=== PATIENT | male | born 1970 | race Caucasian/White ===

== ENCOUNTER 2016-10-12 13:21 | Outpatient (RCR) | payer MEDICARE ==
[~2016-10-12 13:21] MED LIST: ASCO-262 PO; ASPI-983 PO; ATOR20TA66 PO; CEFU500T PO; FURO80TA3 PO; INSU100V16 SQ; INSU100V5 SQ; LOSA50TA36 PO; METO-274 PO; PARO30TA3 PO; SPIR25TA3 PO
== END 2016-10-29 16:00 | disposition home or self-care (01) ==
LOC: WOUNDCARE 13:21
PROVIDERS: ATTEND Surgery
DX: L98.492 Non-pressure chronic ulcer of skin of other sites with fat layer exposed (principal); E11.622 Type 2 diabetes mellitus with other skin ulcer; T81.31XA Disruption of external operation (surgical) wound, not elsewhere classified, initial encounter
CPT/HCPCS: 11042; 17250; 99213

== ENCOUNTER → 2018-02-21 | Outpatient (CLI) | payer BC, MEDICARE ==
[~2018-02-21] MED LIST changes: +ACHD5005 PO; +AZIT250T12 PO; +CARV25TA PO; +CEFP200T2 PO; +CETI10TA17 PO; +INSU100I14 SQ; +LACT1CAP8 PO; +LOSA100T28 PO; -METO-274 PO; +METO-395 PO; +METR500T PO; +SACU1TAB7 PO
--- NOTE | 2018-02-21 12:42 | Diagnostic Imaging Report ---
PROCEDURE: CT pelvis without contrast. TECHNIQUE: Multiple contiguous axial images were obtained through the pelvis without the use of intravenous contrast. Sagittal and coronal reformations were performed. INDICATION: Buttock abscess. COMPARISON: No prior studies are available for comparison. FINDINGS: There is a gas and fluid collection identified in the posterior soft tissues at the midline at the level of the lower sacrum and coccyx. The greatest fluid component is in the left paramidline location measuring 4.0 cm transverse x 4.5 cm AP x 6.4 cm cephalocaudal. There are inflammatory changes in the midline and right paramidline as well with occasional small gas bubbles in the subcutaneous fat on the right as well. No fluid in the right paramidline is seen. No underlying bony destructive changes of the sacrum or coccyx are identified. Bladder and prostate are unremarkable. There appears to be penile prosthesis with balloon in the right pelvis. No free fluid in the pelvis is seen. There are some mildly prominent inguinal lymph nodes bilaterally, largest on the left with short axis measurement of 15 mm. Visualized bowel loops are unremarkable. IMPRESSION: Inflammatory changes in the posterior subcutaneous fat at the level of the lower sacrum and coccyx with gas and fluid collection present, consistent with a small abscess. Deep tissues are unremarkable, however, this process does abut the gluteus musculature. No underlying bony destructive changes within the sacrum or coccyx are identified. Dictated by: Dictated on workstation # [id number]
== END ==
LOC: RAD 11:56
PROVIDERS: ATTEND Surgery
DX: L02.31 Cutaneous abscess of buttock (principal)
CPT/HCPCS: 72192

== ENCOUNTER 2018-02-24 05:29 | Outpatient (CLI) | payer BC, MEDICARE ==
[~2018-02-24] VITALS: Ht 190.5 cm; Wt 126.3 kg
[~2018-02-24 05:29] MED LIST changes: -ACHD5005 PO; -LACT1CAP8 PO; -METR500T PO; -SACU1TAB7 PO
[2018-02-24] MEDS ORDERED: SACU1TAB7 PO (10:45)
[2018-02-25] MEDS ORDERED: ACHD5005 PO (11:24)
== END 2018-02-24 10:56 ==
LOC: PREOP 05:29
PROVIDERS: ATTEND Surgery
DX: Z01.818 Encounter for other preprocedural examination (principal)

== ENCOUNTER 2018-02-25 08:20 | Day surgery (SDC) | payer BC, MEDICARE ==
[~2018-02-25] VITALS: Ht 190.5 cm; Wt 126.3 kg
[~2018-02-25 08:20] MED LIST changes: +SACU1TAB7 PO
[2018-02-25] MEDS ORDERED: LACTATED RINGERS 1,000 ML IV PRN (09:07)
[2018-02-25] MEDS ORDERED: ceFAZolin 2 GM IV Premixed 50 ML IV ONE (09:15)
[2018-02-25] MEDS ORDERED: ceFAZolin 2 GM/50 ML PRE-MIX IVPB IV ONE (09:15)
[2018-02-25 09:33] VITALS: BP 122/70
[2018-02-25 09:41] LABS: BUN/CREATININE RATIO 13; CALCIUM 8.9 MG/DL (8.5-10.1); CARBON DIOXIDE 23 MMOL/L (21-32); CHLORIDE 103 MMOL/L (98-107); CREATININE SERUM 1.19 MG/DL (0.60-1.30); GFR ESTIMATED > 60; GLUCOSE 226 MG/DL (70-105); POTASSIUM 4.1 MMOL/L (3.6-5.0); SODIUM 137 MMOL/L (135-145)
[2018-02-25] MEDS ORDERED: proPOfol 200 MG/20 ML (DIPRIVAN) VIAL IV ONE (10:06)
[2018-02-25] MEDS ORDERED: LIDOCAINE PF 2% 5 ML (XYLOCAINE) VIAL ONE (10:06)
[2018-02-25] MEDS ORDERED: SEVOFLURANE (ULTANE) 15 ML INHAL SOLN ONE (10:06)
[2018-02-25] MEDS ORDERED: MIDAZOLAM 2 MG/2 ML (VERSED) VIAL ONE (10:06)
[2018-02-25] MEDS ORDERED: fentaNYL INJECTION 100 MCG/2 ML AMP ONE ×2 (10:06→11:08)
[2018-02-25] MEDS ORDERED: LIDOCAINE 1% INJ 20 ML 20 ML VIAL ONE (10:12)
[2018-02-25] MEDS ORDERED: BUPIVACAINE 0.5% 30 ML (SENSORCAINE) VIAL ONE (10:12)
--- NOTE | 2018-02-25 10:15 | Progress Note-Pre Operative ---
Pre-Operative Progress Note H&P Reviewed The H&P was reviewed, patient examined and no changes noted. Date Seen by Provider: February 25, 2018 Time Seen by Provider: 10:14 Date H&P Reviewed: February 25, 2018 Time H&P Reviewed: 10:15 Pre-Operative Diagnosis: infected pilonidal cyst CHARLOTTE FITZPATRICK DO February 25, 2018 10:15
[2018-02-25] MEDS ORDERED: ROCURONIUM 10 MG/ML 5 ML SYRINGE IV ONE (11:08)
[2018-02-25] MEDS ORDERED: GLYCOPYRROLATE 0.2 MG/ML (ROBINUL) 2 ML VIAL ONE (11:19)
[2018-02-25] MEDS ORDERED: NEOSTIGMINE 1 MG/ML 5 ML SYRINGE ONE (11:19)
--- NOTE | 2018-02-25 11:23 | Progress Note-Post Operative ---
Post-Operative Progess Note Surgeon (s)/Concrete Gun Operator (s) Surgeon CHARLOTTE FITZPATRICK DO Concrete Gun Operator: na Pre-Operative Diagnosis infected pilonidal cyst Post-Operative Diagnosis same Procedure & Operative Findings Date of Procedure 02/25/18 Procedure Performed/Findings incision and drainage and debridement of infected pilonidal cyst 5x2x4 cm Anesthesia Type gen Estimated Blood Loss Estimated blood loss (mL): min Specimens/Packing Specimens Removed culture CHARLOTTE FITZPATRICK DO February 25, 2018 11:23
[2018-02-25] MEDS ORDERED: ACHD5005 PO (11:24)
--- NOTE | 2018-02-25 11:25 | Discharge Inst-Simple/Standard ---
Discharge Inst-Standard Discharge Medications New, Converted or Re-Newed RX: RX on Chart Patient Instructions/Follow Up Plan of Care/Instructions/FU: - Wednesday Irrigate with saline and then pack with iodoform gauze. Activity as Tolerated: Yes Discharge Diet: Regular Diet Other Inst to Patient Follow up Appt: Make appointment for Wednesday Instructions: No strenuous activity. May shower in 24 hours, no tub bath or soaking. Use incentive spirometer at home as directed. No Smoking Skin/Wound Care: Irrigate and pack daily as directed. Symptoms to Report: Appetite Changes, Extremity Discoloration, Numbness/Tingling, Swelling Increased , Bleeding Excessive, Eyesight Changes, Pain Increased, Urine Color Change, Constipation(Persistent), Fever over 101 degree F, Pain/Pressure in chest, Urinating Difficulty, Cough Up/Vomit Blood, Heart Beat Irreg/Pounding, Pain/ Pressure in jaw, Vaginal Bleeding Increase, Cramps in feet or legs, Lightheadedness, Pain/Pressure in shoulder, Diarrhea(Persistent), Memory Changes Suddenly, Questions/Concerns, Weight gain consecutive days, Dizziness/ Fainting, Nausea/Vomiting, Shortness of Breath, Weight gain over 2 pounds If questions or concerns contact your physician Or seek help at emergency department. CHARLOTTE FITZPATRICK DO February 25, 2018 11:25
[2018-02-25] MEDS ORDERED: morphine INJ 10 MG/ML 1ML (SYR OR VIAL) IVP PRN (11:45)
[2018-02-25] MEDS ORDERED: HYDROmorphone 2 MG/ML VIAL (DILAUDID) IVP PRN (11:45)
[2018-02-25] MEDS ORDERED: ONDANSETRON 4 MG/2 ML (SDV) Z0FRAN IVP PRN (11:45)
[2018-02-25 12:25] VITALS: BP 116/46
[2018-02-25 12:26] VITALS: BP 116/46
[2018-02-25] MEDS ORDERED: HYDROcodone/APAP 5 MG/325 MG (LORTAB) TAB ONE (12:36)
[2018-02-25] MEDS ORDERED: HYDROcodone/APAP 5 MG/325 MG (LORTAB) TAB PO ONE (12:45)
[2018-02-25 12:55] VITALS: BP 114/80
[2018-02-25 13:25] VITALS: BP 116/64
[2018-02-25 13:45] VITALS: BP 116/64
--- NOTE | 2018-02-25 14:02 | Anesthesia-General Post-Op ---
General Patient Condition Mental Status/LOC: Same as Preop Cardiovascular: Satisfactory Nausea/Vomiting: Absent Respiratory: Satisfactory Pain: Controlled Complications: Absent Post Op Complications Complications None Follow Up Care/Instructions Patient Instructions None needed. Anesthesia/Patient Condition Patient Condition Patient is doing well, no complaints, stable vital signs, no apparent adverse anesthesia problems. No complications reported per nursing. JOHANNY BLANKENSHIP CRNA February 25, 2018 14:02
--- NOTE | 2018-02-26 12:57 | OPERATIVE REPORT ---
DATE OF SERVICE: 02/25/2018 PREOPERATIVE DIAGNOSIS: Infected pilonidal cyst. POSTOPERATIVE DIAGNOSIS: Infected pilonidal cyst. PROCEDURE: Incision and drainage and debridement of infected pilonidal cyst 5 x 2 x 4 cm. SURGEON: Charlotte Brunson DO. ANESTHESIA: General. ESTIMATED BLOOD LOSS: Minimal. COMPLICATIONS: None. INDICATIONS: The patient is a 47-year-old male with diabetes, but he has had an infected pilonidal cyst which has been drained multiple times. He has had recent workup. He continued to have drainage from the infected pilonidal cyst through a small opening and demonstrating a deep abscess still present. The patient was discussed risks and benefits of procedure and wished to proceed with procedure. Consent was signed in chart. PROCEDURE: The patient was taken to the operative suite. He was prepped and draped in prone position after being intubated in position. Timeout was performed. Just to the left of the midline buttocks, there was a small raised draining area. Elliptical incision was made around this and the skin and subcutaneous tissue was removed with dissection going deeper through the subcutaneous tissues. A large pocket was then encountered and purulent drainage was present. Culture was obtained. There is a large cavity present within this which went down towards the tip of the coccyx and superiorly a few centimeters. The infected tissue was then debrided from the cavity to a clean healthy tissue. The wound was then irrigated with copious amounts of irrigation. Hemostasis was achieved. The wound was then packed with one Xeroform gauze. The area was then washed and dried, sterile bandage was applied. The patient tolerated the procedure well without any complications and taken to recovery room in stable condition. Job ID: [id number] DocumentID: [id number] Dictated Date: 02/25/2018 20:18:11 Senior Clinician Date: 02/26/2018 03:19:03 Dictated By: CHARLOTTE BRUNSON DO
== END 2018-02-25 13:50 | disposition home or self-care (01) ==
LOC: SDC 08:20
PROVIDERS: ATTEND Surgery
DX: L05.91 Pilonidal cyst without abscess (principal); I25.10 Atherosclerotic heart disease of native coronary artery without angina pectoris; I11.0 Hypertensive heart disease with heart failure; I50.9 Heart failure, unspecified; G47.33 Obstructive sleep apnea (adult) (pediatric); E11.42 Type 2 diabetes mellitus with diabetic polyneuropathy; Z79.4 Long term (current) use of insulin; Z79.899 Other long term (current) drug therapy; Z95.810 Presence of automatic (implantable) cardiac defibrillator
CPT/HCPCS: 36415; 80048; 82962; 87070; 87075; 87081; 87205

== ENCOUNTER 2018-03-26 12:27 | Emergency (ER) | payer BC, MEDICARE ==
[~2018-03-26] VITALS: Ht 190.5 cm; Wt 117.9 kg
[~2018-03-26 12:27] MED LIST changes: +ACHD5005 PO
--- OUTSIDE RECORDS SUMMARY | 2018-03-26 12:33 | XMS REPORT ---
Author Author GRISEL RIVERA Organization [facility] Address [address] [place] [address] Care Team Providers Care Spinner Open End Name Role Phone GRISEL RIVERA Unavailable PROBLEMS Type Condition ICD9-CM Code FUL65-LT Code Onset Dates Condition Status SNOMED Code Problem FOREIGN (obstructive sleep apnea) G47.33 Active 55745286 Problem Insulin long-term use Z79.4 Active 956516398 Problem Diabetes type 1, controlled E10.9 Active 84903729 Problem Non-ischemic cardiomyopathy I42.9 Active 18111936 Problem Acute seasonal allergic rhinitis due to other allergen J30.2 Active 198440713 Problem BMI 34.0-34.9,adult Z68.34 Active 923534560 Problem Hypertension I10 Active 41618653 Problem Diabetes E11.9 Active 70203494 Problem Generalized anxiety disorder F41.1 Active 56247350 Problem Skin ulcer, limited to breakdown of skin L98.491 Active 50311721 ALLERGIES No Information ENCOUNTERS Encounter Location Date Diagnosis [place] [id number] [place] [address] 24774- 9911 Jan, Medicare annual wellness visit, initial Z00.00 [place] [id number] [place] [address] 41372- 0170 Dec, [facility] [id number] [place] [address] 30923- 4383 Dec, [place] [id number] [place] [address] 22815- 0357 Dec, [place] [id number] [place] [address] 15494- 1579 Dec, Pilonidal cyst with abscess L05.01 [place] [address] 16307- 6391 Dec, [facility] [address] [address] Nov, [facility] [id number] [place] [address] 67562- 0803 Nov, [facility] [id number] [place] [address] 46537- 4928 Nov, [facility] [id number] [place] [address] 17710 -9150 Nov, [facility] [id number] [place] [address] 79249- 3381 Oct, Pilonidal cyst with abscess L05.01 [facility] [id number] [place] [address] 42199- 3881 Oct, BMI 37.0-37.9, adult Z68.37 [facility] [id number] [place] [address] 93634- 4658 Oct, [facility] [id number] [place] [address] 25380- 4210 Oct, [facility] [id number] [place] [address] 60225- 4024 Sep, Sebaceous cyst L72.3 [facility] [id number] [place] [address] 88373- 8821 Sep, [facility] [id number] [place] [address] 09674- 3629 Sep, [facility] [id number] [place] [address] 54614- 9779 Sep, Local infection of the skin and subcutaneous tissue, unspecified L08.9 [facility] [id number] [place] [address] 33458- 6920 Sep, [facility] [id number] [place] [address] 14412- 7473 Sep, [facility] [id number] [place] [address] 40926- 7269 Aug, [facility] [id number] [place] [address] 91842 -2051 Aug, Cough R05 and Community acquired pneumonia of left lower lobe of lung J18.1 [facility] [id number] [place] [address] 26581- 7502 Aug, [facility] [id number] [place] [address] 21374- 4447 Jul, Diabetes type 1, controlled E10.9 ; Encounter for immunization Z23 and FOREIGN (obstructive sleep apnea) G47.33 [facility] [id number] [place] [address] 49760- 4232 Jul, [address] [id number] [place] [address] Jul [facility] [id number] [place] [address] 64288- 8284 Jul, Diabetes type 1, controlled E10.9 [facility] [id number] [place] [address] 24158- 2392 Jul, [facility] [id number] [place] [address] 37010- 7959 Jul, [facility] [id number] [place] [address] 60946 -9073 Jul, Acute seasonal allergic rhinitis due to other allergen J30.2 [facility] [id number] [place] [address] 98269- 0933 Jun, [place] [id number] [place] [address] 37511- 6225 Jun, [facility] [id number] [place] [address] 63987- 1197 14 Jun, 2017 [facility] [address] [place] [address]- 1170 May, [facility] [id number] [place] [address] 47953- 7069 Apr, [facility] [id number] [place] [address] 16285- 7254 Apr, [facility] [id number] [place] [address] 16277- 4718 Mar, Renal insufficiency N28.9 [facility] [address] 79513- 5965 Mar, [facility] [address] 61181- 6868 Mar, Other specified hypotension I95.89 [facility] [id number] [place] [address] 61595- 9797 Mar, [facility] [id number] [place] [address] 03570- 1245 February, [facility] [id number] [place] [address] 21585- 3809 February, Allergy, initial encounter T78.40XA [facility] [id number] [place] [address] 41882- 1915 February, Diabetes type 1, controlled E10.9 [facility] [id number] [place] [address] 95608- 6647 February, [facility] [id number] [place] [address] 93333- 0706 February, [facility] [id number] [place] [address] 16185- 4684 Dec, [facility] [id number] [place] [address] 20596- 9079 Dec, BMI 34.0-34.9,adult Z68.34 [facility] [address] 76376- 9276 Nov, Generalized anxiety disorder F41.1 [facility] [id number] [place] [address] 38338- 8503 07 Nov, 2016 [facility] [id number] [place] [address] 154717- 1763 Nov, [facility] [id number] [place] [address] 48638- 8518 Nov, Skin ulcer, limited to breakdown of skin L98.491 [facility] [id number] [place] [address] 89470- 2699 Oct, [facility] [id number] [place] [address] 62612- 4233 Oct, Insulin long-term use Z79.4 [facility] [id number] [place] [address] 54498- 4140 Oct, [facility] [id number] [place] [address] 23515- 7876 Oct, Insulin long-term use Z79.4 [facility] [id number] [place] [address] 16958- 6114 Oct, [facility] [id number] [place] [address] 86800- 6677 Oct, Encounter for immunization Z23 [facility] [id number] [place] [address] 56614- 9517 Oct, [facility] [id number] [place] [address] 28168- 6048 Sep, [facility] [id number] [place] [address] 49078- 4002 Sep, Acute nasopharyngitis J00 ; Routine adult health maintenance Z00.00 and Encounter for school examination Z02.0 [facility] [id number] [place] [address] 98951- 7792 Sep, [place] [address] [id number] [place] [address]- 0770 Sep, Diabetes type 1, controlled E10.9 [facility] [address] [id number] [place] [address]- 8349 30 Aug, 2016 [facility] [address] [id number] [place] [address]- 5819 Aug, [facility] [address] [id number] [place] [address]- 6986 Aug, [facility] [address] [id number] [place] [address]- 8185 Aug, [facility] [address] [id number] [place] [address]- 5651 Aug, [facility] [address] [facility] [id number] [place] [address]- 8942 Aug, [facility] [address] [facility] [id number] [place] [address]- 9743 Jul, [facility] [address] [id number] [place] [address]- 4275 10 Jul, 2016 [facility] [address] [facility] [id number] [place] [address]- 3056 27 Jun, 2015 [facility] [address] [id number] [place] [address]- 9991 26 Sep, 2015 [facility] [address] [id number] [place] [address]- 4968 12 Sep, 2015 [facility] [address] [id number] [place] [address]- 3933 07 Sep, 2015 [facility] [address] [facility] [id number] [place] [address]- 4572 06 Sep, 2016 Diabetes type 1, controlled E10.9 [facility] [address] [id number] [place] [address]- 7970 06 Sep, 2015 [facility] [address] [address]- 9410 Jun, [facility] [address] [address]- 3787 May, [facility] [id number] [place] [address]- 6941 May, [facility] [id number] [place] [address], [place] [address]- 1966 May, [facility] [id number] [place] [address]- 0199 May, [facility] [address] [place] [address], [place] [address]- 5120 May, [facility] [id number] [place] [address] 05590- 4601 Apr, BMI 39.0-39.9,adult Z68.39 [facility] [address] [address]- 2347 Jan, [facility] [id number] [place] [address] 26143- 1273 Jan, Diabetes type 1, controlled E10.9 [facility] [address] [address]- 0416 Dec, [facility] [address] [place] [address]- 6231 Dec, Diabetes type 1, controlled E10.9 [facility] [address] [address]- 1025 Nov, [facility] [id number] [place] [address] 28195- 5929 Nov, Hypertension I10 [facility] [address] [address]- 4363 Nov, Hypertension I10 [facility] [id number] [place] [address] 26143- 3582 Oct, Diabetes type 1, controlled E10.9 ; Insulin long-term use Z79.4 ; Non-ischemic cardiomyopathy I42.9 ; Hypertension I10 and FOREIGN ( obstructive sleep apnea) G47.33 [facility] [address] [facility] [id number] [place] [address]- 2428 Oct, Encounter for PPD test Z11.1 IMMUNIZATIONS No Known Immunizations SOCIAL HISTORY Never Assessed REASON FOR VISIT Repower PLAN OF CARE VITAL SIGNS Height 73 in 2017-04-15 Weight 273.3 lbs 2017-04-15 BMI 36.05 kg/m2 2017-04-15 MEDICATIONS Unknown Medications RESULTS No Results PROCEDURES No Known procedures INSTRUCTIONS MEDICATIONS ADMINISTERED No Known Medications MEDICAL (GENERAL) HISTORY Type Description Date Medical History Diabetes Medical History Congestive heart disease Medical History sleep apnea-has CPAP Medical History seasonal allergies Surgical History pacemaker/defibrillator Surgical History carpal tunnel release Hospitalization History complications post op Hospitalization History 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
--- OUTSIDE RECORDS SUMMARY | 2018-03-26 12:33 | XMS REPORT | Clinical Summary ---
Author Author [facility] Organization [facility] Address Unknown Phone Unavailable Care Team Providers Care Liquor Establishment Manager Name Role Phone Nhan Andino MD PCP Source Comments Some departments are not documenting in the electronic medical record. If you do not see the information that you expected, contact Release of Information in the Health Information Management department at [phone] for further assistance in locating additional records.[facility] Allergies No Known Allergies Current Medications Prescription Sig. Disp. Refills Start End Date Status Date insulin detemir(+) Inject 44 units Active (LEVEMIR) 100 unit/mL subcutaneously in the soln morning and 34 units in the evening. aspirin EC 81 mg tablet Take 81 mg by mouth Active daily. Take with food. losartan(+) (COZAAR) 100 Take 100 mg by mouth Active mg tablet daily. carvedilol (COREG) 25 mg Take 25 mg by mouth twice Active tablet daily with meals. Take with food. furosemide (LASIX) 80 mg Take 80 mg by mouth twice Active tablet daily. spironolactone Take 25 mg by mouth Active (ALDACTONE) 25 mg tablet daily. Take with food. atorvastatin (LIPITOR) 20 Take 20 mg by mouth Active mg tablet daily. PARoxetine (PAXIL) 30 mg Take 30 mg by mouth Active tablet daily. 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 IPP counseling 11/30/16 Significant cardiac issue with ICD and also known EF of <20%. Cardiac clearance inadequate and one line statement of medium risk . No new data/testing. Pt seen by PAT, but now collecting that information. Not proceeding with surgery until adequate evaluation L ast Assessment & Plan: Need to get better records of cardiac issue and risk for PAT to review before scheduling. Patient understands. Dyslipidemia 11/30/2016 Hypertension 11/30/2016 Depression 11/30/2016 Family History Medical History Relation Name Comments Diabetes Paternal Grandmother Relation Name Status Comments Paternal Grandmother Social History Tobacco Use Types Packs/Day Years Used Date Never Smoker Alcohol Use Drinks/Week oz/Week Comments Yes 0 Standard 0.0 rarely drinks or equivalent Sex Assigned at Date Recorded Not on file Last Filed Vital Signs Vital Sign Reading Time Taken Blood Pressure 124/85 01/29/2017 1:18 PM CDT Pulse 79 01/29/2017 1:18 PM CDT Temperature 36.9 C (98.4 F) 11/30/2016 4:10 PM [employer] Respiratory Rate - - Oxygen Saturation 99% 11/30/2016 4:10 PM [employer] Inhaled Oxygen - - Concentration Weight 121.6 kg (268 lb) 01/29/2017 1:18 PM CDT Height 190.5 cm (6' 3") 01/29/2017 1:18 PM CDT Body Mass Index 33.5 01/29/2017 1:18 PM CDT Plan of Treatment Health Maintenance Due Date Last Done Comments PHYSICAL (COMPREHENSIVE) 1975 EXAM PERTUSSIS VACCINE 1979 HIV SCREENING 1983 TETANUS VACCINE 1985 DILATED EYE EXAM 1986 FOOT EXAM 1986 HBA1C 1986 MICROALBUMIN 1986 PNEUMONIA VACCINE (DM) 1986 INFLUENZA VACCINE 07/25/2018 Results Not on filefrom Last 3 Months
--- OUTSIDE RECORDS SUMMARY | 2018-03-26 12:34 | XMS REPORT ---
Author Author GRISEL RIVERA Organization [facility] Address [address] [place] [address] Care Team Providers Care Prime Broker Name Role Phone GRISEL RIVERA Unavailable PROBLEMS Type Condition ICD9-CM Code QPA32-VO Code Onset Dates Condition Status SNOMED Code Problem FOREIGN (obstructive sleep apnea) G47.33 Active 48911338 Problem Insulin long-term use Z79.4 Active 589932694 Problem Diabetes type 1, controlled E10.9 Active 21928750 Problem Non-ischemic cardiomyopathy I42.9 Active 51941195 Problem Acute seasonal allergic rhinitis due to other allergen J30.2 Active 903159105 Problem BMI 34.0-34.9,adult Z68.34 Active 753551466 Problem Hypertension I10 Active 08169762 Problem Diabetes E11.9 Active 79002178 Problem Generalized anxiety disorder F41.1 Active 44576963 Problem Skin ulcer, limited to breakdown of skin L98.491 Active 20584688 ALLERGIES No Information ENCOUNTERS Encounter Location Date Diagnosis [place] [id number] [place] [address] 28037- 1071 Jan, Medicare annual wellness visit, initial Z00.00 [place] [id number] [place] [address] 49731- 6746 Dec, [place] [id number] [place] [address] 98179- 4075 Dec, [place] [id number] [place] [address] 68725- 5324 Dec, [place] [id number] [place] [address] 46657- 5812 Dec, Pilonidal cyst with abscess L05.01 [place] [address] [address]25- 6625 Dec, [facility] [address] [address] 1751 Nov, [facility] [id number] [place] [address] 11539- 1658 Nov, [facility] [id number] [place] [address] 19685- 1307 Nov, [facility] [id number] [place] [address] 52669 -8168 Nov, [facility] [id number] [place] [address] 88817- 5634 Oct, Pilonidal cyst with abscess L05.01 [facility] [id number] [place] [address] 51725- 4761 Oct, BMI 37.0-37.9, adult Z68.37 [facility] [id number] [place] [address] 27616- 2336 Oct, [facility] [id number] [place] [address] 84374- 1486 Oct, [facility] [id number] [place] [address] 55065- 8576 Sep, Sebaceous cyst L72.3 [facility] [id number] [place] [address] 61404- 6091 Sep, [facility] [id number] [place] [address] 95682- 6966 Sep, [facility] [id number] [place] [address] 64844- 1130 Sep, Local infection of the skin and subcutaneous tissue, unspecified L08.9 [facility] [id number] [place] [address] 75180- 0808 Sep, [facility] [id number] [place] [address] 42535- 7756 Sep, [facility] [id number] [place] [address] 19935- 7938 Aug, [facility] [id number] [place] [address] 61383 -4251 Aug, Cough R05 and Community acquired pneumonia of left lower lobe of lung J18.1 [facility] [id number] [place] [address] 29414- 3200 Aug, [facility] [id number] [place] [address] 45792- 1711 Jul, Diabetes type 1, controlled E10.9 ; Encounter for immunization Z23 and FOREIGN (obstructive sleep apnea) G47.33 [facility] [id number] [place] [address] 73924- 8361 Jul, [address] [id number] [address] Jul [facility] [id number] [place] [address] 55870- 6273 Jul, Diabetes type 1, controlled E10.9 [facility] [id number] [place] [address] 48525- 6100 Jul, [facility] [id number] [place] [address] 84150- 8639 Jul, [facility] [id number] [place] [address] 71116 -3893 Jul, Acute seasonal allergic rhinitis due to other allergen J30.2 [facility] [id number] [place] [address] 97593- 8551 Jun, [place] [id number] [place] [address] 30414- 9844 Jun, [facility] [id number] [place] [address] 35530- 3289 14 Jun, 2017 [facility] [address] [place] [address]- 5870 May, [facility] [id number] [place] [address] 99790- 2088 Apr, [facility] [id number] [place] [address] 18979- 4920 Apr, [facility] [id number] [place] [address] 32080- 9527 Mar, Renal insufficiency N28.9 [facility] [address] 85639- 5161 Mar, [facility] [address] 44233- 9381 Mar, Other specified hypotension I95.89 [facility] [id number] [place] [address] 44123- 1531 Mar, [facility] [id number] [place] [address] 65171- 9730 February, [facility] [id number] [place] [address] 35275- 3952 February, Allergy, initial encounter T78.40XA [facility] [id number] [place] [address] 03354- 4851 February, Diabetes type 1, controlled E10.9 [facility] [id number] [place] [address] 66781- 4350 February, [facility] [id number] [place] [address] 45628- 9328 February, [facility] [id number] [place] [address] 70138- 3959 Dec, [facility] [id number] [place] [address] 98842- 8014 Dec, BMI 34.0-34.9,adult Z68.34 [facility] [address] 77362- 8731 Nov, Generalized anxiety disorder F41.1 [facility] [id number] [place] [address] 48874- 8149 07 Nov, 2016 [facility] [id number] [place] [address] 140628- 9200 Nov, [facility] [id number] [place] [address] 07113- 6669 Nov, Skin ulcer, limited to breakdown of skin L98.491 [facility] [id number] [place] [address] 69514- 9702 Oct, [facility] [id number] [place] [address] 82363- 4014 Oct, Insulin long-term use Z79.4 [facility] [id number] [place] [address] 18235- 1839 Oct, [facility] [id number] [place] [address] 24868- 7936 Oct, Insulin long-term use Z79.4 [facility] [id number] [place] [address] 38184- 5814 Oct, [facility] [id number] [place] [address] 87973- 3974 Oct, Encounter for immunization Z23 [facility] [id number] [place] [address] 06023- 7151 Oct, [facility] [id number] [place] [address] 98646- 8820 Sep, [facility] [id number] [place] [address] 82783- 3449 Sep, Acute nasopharyngitis J00 ; Routine adult health maintenance Z00.00 and Encounter for school examination Z02.0 [facility] [id number] [place] [address] 12817- 4557 Sep, [place] [address] [id number] [place] [address]- 2634 Sep, Diabetes type 1, controlled E10.9 [facility] [address] [id number] [place] [address]- 8574 30 Aug, 2016 [facility] [address] [id number] [place] [address]- 4489 Aug, [facility] [address] [id number] [place] [address]- 3029 Aug, [facility] [address] [id number] [place] [address]- 4087 Aug, [facility] [address] [id number] [place] [address]- 0239 Aug, [facility] [address] [facility] [id number] [place] [address]- 4242 Aug, [facility] [address] [facility] [id number] [place] [address]- 1525 Jul, [facility] [address] [id number] [place] [address]- 0026 10 Jul, 2016 [facility] [address] [facility] [id number] [place] [address]- 1904 27 Jun, 2015 [facility] [address] [id number] [place] [address]- 4802 26 Sep, 2015 [facility] [address] [id number] [place] [address]- 8303 12 Sep, 2015 [facility] [address] [id number] [place] [address]- 9826 07 Sep, 2015 [facility] [address] [facility] [id number] [place] [address]- 3752 06 Sep, 2016 Diabetes type 1, controlled E10.9 [facility] [address] [id number] [place] [address]- 8756 06 Sep, 2015 [facility] [place] [address] [address]- 5234 Jun, [facility] [address] [address]- 4380 May, [facility] [id number] [place] [address]- 1404 May, [facility] [id number] [place] [address], [place] [address]- 4900 May, [facility] [id number] [place] [address]- 2561 May, [facility] [id number] [place] [address], [place] [address]- 8902 May, [facility] [id number] [place] [address] 45319- 8721 Apr, BMI 39.0-39.9,adult Z68.39 [facility] [address] [address]- 4772 Jan, [facility] [id number] [place] [address] 88774- 9444 Jan, Diabetes type 1, controlled E10.9 [facility] [address] [address]- 4225 Dec, [facility] [address] [address]- 3704 Dec, Diabetes type 1, controlled E10.9 [facility] [address] [address]- 6332 Nov, [facility] [id number] [place] [address] 80475- 0213 Nov, Hypertension I10 [facility] [address] [address]- 4866 Nov, Hypertension I10 [facility] [id number] [place] [address] 25745- 3001 Oct, Diabetes type 1, controlled E10.9 ; Insulin long-term use Z79.4 ; Non-ischemic cardiomyopathy I42.9 ; Hypertension I10 and FOREIGN ( obstructive sleep apnea) G47.33 [facility] [address] [facility] [id number] [place] [address]- 6163 Oct, Encounter for PPD test Z11.1 IMMUNIZATIONS No Known Immunizations SOCIAL HISTORY Never Assessed REASON FOR VISIT Repower f/u PLAN OF CARE VITAL SIGNS Height 73 in 2017-05-03 Weight 268.7 lbs 2017-05-03 BMI 35.45 kg/m2 2017-05-03 MEDICATIONS Unknown Medications RESULTS No Results PROCEDURES [...]
--- OUTSIDE RECORDS SUMMARY | 2018-03-26 12:34 | XMS REPORT ---
Author Author GRISEL RIVERA [facility] Address [address] [place] [address] Care Team Providers Care Strap Buckler Name Role Phone GRISEL RIVERA Unavailable PROBLEMS Type Condition ICD9-CM Code PVN20-IW Code Onset Dates Condition Status SNOMED Code Problem FOREIGN (obstructive sleep apnea) G47.33 Active 05752522 Problem Insulin long-term use Z79.4 Active 144647846 Problem Diabetes type 1, controlled E10.9 Active 47817265 Problem Non-ischemic cardiomyopathy I42.9 Active 05492681 Problem Acute seasonal allergic rhinitis due to other allergen J30.2 Active 331171402 Problem BMI 34.0-34.9,adult Z68.34 Active 951461466 Problem Hypertension I10 Active 51614224 Problem Diabetes E11.9 Active 47454247 Problem Generalized anxiety disorder F41.1 Active 30601501 Problem Skin ulcer, limited to breakdown of skin L98.491 Active 39044375 ALLERGIES No Information ENCOUNTERS Encounter Location Date Diagnosis [facility] [id number] [place] [address] 97859- 8709 Jan, Medicare annual wellness visit, initial Z00.00 ; Non- ischemic cardiomyopathy I42.9 ; Diabetes type 1, controlled E10.9 ; Generalized anxiety disorder F41.1 ; Hypertension I10 and BMI 34.0-34.9,adult Z68.34 [facility] [address] [address] Dec, [facility] [id number] [place] [address] 86060- 9848 Dec, [facility] [id number] [place] [address] 32387- 7920 Dec, [facility] [id number] [place] [address] 98328- 5161 Dec, Pilonidal cyst with abscess L05.01 [facility] [id number] [place] [address] 87820- 7521 Dec, [facility] [id number] [place] [address] 71320- 2543 Nov, [facility] [id number] [place] [address] 14184- 4510 Nov, [facility] [id number] [place] [address] 09012- 2932 Nov, [facility] [id number] [place] [address] 88388 -7107 Nov, [facility] [id number] [place] [address] 22698- 2420 Oct, Pilonidal cyst with abscess L05.01 [facility] [id number] [place] [address] 64527- 2402 Oct, BMI 37.0-37.9, adult Z68.37 [facility] [id number] [place] [address] 73350- 0562 Oct, [facility] [id number] [place] [address] 71969- 1692 Oct, [facility] [address] [place] [address] 56640- 4983 Sep, Sebaceous cyst L72.3 [facility] [address] [place] [address] 03191- 0807 Sep, [facility] [id number] [place] [address] 19599- 0660 Sep, [facility] [address] [place] [address] 12098- 6320 Sep, Local infection of the skin and subcutaneous tissue, unspecified L08.9 [facility] [id number] [address] Sep, [facility] [address] [place] [address] 01830- 9596 Sep, [facility] [id number] [place] [address] 78252- 0524 Aug, [facility] [id number] [place] [address] 37132 -4597 Aug, Cough R05 and Community acquired pneumonia of left lower lobe of lung J18.1 [facility] [id number] [place] [address] 56057- 0811 Aug, [facility] [id number] [place] [address] 59543- 2472 Jul, Diabetes type 1, controlled E10.9 ; Encounter for immunization Z23 and FOREIGN (obstructive sleep apnea) G47.33 [facility] [address] [place] [address] 52012- 9279 Jul, [address] [id number] [place] [address] Jul [facility] [address] [place] [address] 22949- 4298 Jul, Diabetes type 1, controlled E10.9 [facility] [address] [address] 6358 Jul, [facility] [address] [place] [address] 76463- 5892 Jul, [facility] [address], [place] [address] Jul, Acute seasonal allergic rhinitis due to other allergen J30.2 [facility] [address] [address] 0020 Jun, [facility] [address] [place] [address] 66964- 3910 Jun, [facility] [address], [place] [address] 1872 Jun, [facility] [address] [place] [address], [place] [address]- 7095 May, [facility] [address], [place] [address] 0167 Apr, [facility] [id number] [place] [address] 47089- 3850 Apr, [facility] [id number] [place] [address] 07031- 6348 Mar, Renal insufficiency N28.9 [facility] [id number] [place] [address] 45318- 9586 Mar, [facility] [id number] [place] [address] 95758- 0581 Mar, Other specified hypotension I95.89 [facility] [address] [address] 1431 Mar, [facility] [address] [place] [address] 61312- 8841 February, [facility] [address], [place] [address] 1675 February, Allergy, initial encounter T78.40XA [facility] [address], [place] [address] 8354 February, Diabetes type 1, controlled E10.9 [facility] [address], [place] [address]- 5348 February, [facility] [id number] [place] [address] 65111- 1256 February, [facility] [address], [place] [address] Dec, [facility] [id number] [place] [address] 66669- 0336 Dec, BMI 34.0-34.9,adult Z68.34 [facility] [id number] [place] [address] 00319- 0217 Nov, Generalized anxiety disorder F41.1 [facility] [id number] [place] [address] 91528- 4552 Nov, [facility] [address] 16215- 1913 Nov, [facility] [id number] [place] [address] 55435- 0180 Nov, Skin ulcer, limited to breakdown of skin L98.491 [facility] [id number] [place] [address] 43853- 0794 Oct, [facility] [id number] [place] [address] 04809- 7768 Oct, Insulin long-term use Z79.4 [facility] [id number] [place] [address] 98711- 8847 Oct, [facility] [id number] [place] [address] 20436- 6047 Oct, Insulin long-term use Z79.4 [facility] [id number] [place] [address] 06536- 6537 Oct, [facility] [id number] [place] [address] 30318- 5525 Oct, Encounter for immunization Z23 [facility] [id number] [place] [address] 36925- 5622 Oct, [facility] [id number] [place] [address] 31150- 4986 Sep, [facility] [id number] [place] [address] 17599- 9853 Sep, Acute nasopharyngitis J00 ; Routine adult health maintenance Z00.00 and Encounter for school examination Z02.0 [facility] [address] [facility] [id number] [place] [address]- 9352 Sep, [facility] [address] [facility] [id number] [place] [address]- 5002 Sep, Diabetes type 1, controlled E10.9 [facility] [address] [facility] [id number] [address]- 6365 Aug, [facility] [address] [facility] [id number] [place] [address]- 5302 Aug, [facility] [address] [facility] [id number] [place] [address]- 1791 Aug, [facility] [address] [facility] [id number] [place] [address]- 3359 Aug, [facility] [id number] [place] [address]- 2130 Aug, [facility] [address] [facility] [id number], [place] [address]- 4081 Aug, [facility] [id number] [place] [address]- 0006 Jul, [facility] [address] [facility] [id number] [place] [address]- 0133 Jul, [facility] [address] [address]- 1844 27 Jun, 2016 [facility] [address] [facility] [id number], [place] [address]- 254 26 Jun, 2016 [facility] [address] [facility] [id number], [place] [address]- 9309 12 Jun, 2016 [facility] [address] [facility] [id number] [address]- 2544 07 Jun, 2015 [facility] [address] [facility] [id number] [address]- 6962 06 Jun, 2016 Diabetes type 1, controlled E10.9 [facility] [id number] [place] [address]- 6552 Jun, [facility] [address] [address]- 6927 Jun, [facility] [id number] [place] [address]- 1700 May, [facility] [address] [place] [address] 30883- 3370 May, [facility] [id number] [place] [address]- 8349 May, [facility] [address] [place] [address] 79512- 2170 May, [facility] [id number] [place] [address]- 8618 May, [facility] [address], [place] [address]- 4030 Apr, BMI 39.0-39.9,adult Z68.39 [facility] [address], [place] [address]- 5635 Jan, [facility] [address], [place] [address]- 2146 Jan, Diabetes type 1, controlled E10.9 [facility] [address], [place] [address]- 9055 Dec, [facility] [address] [address]- 2059 Dec, Diabetes type 1, controlled E10.9 [facility] [address] [address]- 8004 Nov, [facility] [address], [place] [address]- 9207 Nov, Hypertension I10 [facility] [address] [address]- 5240 Nov, Hypertension I10 [facility] [id number] [address]- 8065 Oct, Diabetes type 1, controlled E10.9 ; Insulin long-term use Z79.4 ; Non-ischemic cardiomyopathy I42.9 ; Hypertension I10 and FOREIGN ( obstructive sleep apnea) G47.33 [place] [facility] [id number] [address]- 1328 Oct, Encounter for PPD test Z11.1 IMMUNIZATIONS No Known Immunizations SOCIAL HISTORY Never Assessed REASON FOR VISIT Repower f/u attempt PLAN OF CARE VITAL SIGNS MEDICATIONS No Known Medications RESULTS No Results PROCEDURES No Known [...]
--- OUTSIDE RECORDS SUMMARY | 2018-03-26 12:34 | XMS REPORT ---
Author Author GRISEL RIVERA [facility] Address [address] [place] [address] Care Team Providers [employer] Name Role Phone GRISEL RIVERA Unavailable PROBLEMS Type Condition ICD9-CM Code LUY65-JV Code Onset Dates Condition Status SNOMED Code Problem FOREIGN (obstructive sleep apnea) G47.33 Active 74272851 Problem Insulin long-term use Z79.4 Active 479350915 Problem Diabetes type 1, controlled E10.9 Active 50884507 Problem Non-ischemic cardiomyopathy I42.9 Active 06999057 Problem Acute seasonal allergic rhinitis due to other allergen J30.2 Active 715915746 Problem BMI 34.0-34.9,adult Z68.34 Active 229452104 Problem Hypertension I10 Active 50595929 Problem Diabetes E11.9 Active 58709902 Problem Generalized anxiety disorder F41.1 Active 16216347 Problem Skin ulcer, limited to breakdown of skin L98.491 Active 21065117 ALLERGIES No Information ENCOUNTERS Encounter Location Date Diagnosis [facility] [address] [address] Jan, [facility] [id number] [place] [address] 24172- 1489 Jan, Medicare annual wellness visit, initial Z00.00 ; Non- ischemic cardiomyopathy I42.9 ; Diabetes type 1, controlled E10.9 ; Generalized anxiety disorder F41.1 ; Hypertension I10 and BMI 34.0-34.9,adult Z68.34 [facility] [address] [address]- [address] Dec, [facility] [address] [address]- [address] Dec, [facility] [address] [address]- [address] Dec, [facility] [id number] [place] [address] 30281- 6821 Dec, Pilonidal cyst with abscess L05.01 [facility] [id number] [place] [address] 83013- 9612 Dec, [facility] [id number] [place] [address] 77774- 0270 Nov, [facility] [address] [address]- [address]49 Nov, [facility] [address] [address] Nov, [facility] [id number] [place] [address]00 -[address]78 Nov, [facility] [address] [address]- 48[address] Oct, Pilonidal cyst with abscess L05.01 [facility] [id number] [place] [address] 95102- 0548 Oct, BMI 37.0-37.9, adult Z68.37 [facility] [id number] [place] [address] 86848- 0535 Oct, [facility] [id number] [place] [address] 92998- 6117 Oct, [facility] [id number] [place] [address] 76529- 5354 Sep, Sebaceous cyst L72.3 [facility] [id number] [place] [address] 73585- 2265 Sep, [facility] [id number] [place] [address] 08302- 8498 Sep, [facility] [id number] [place] [address] 98764- 7835 Sep, Local infection of the skin and subcutaneous tissue, unspecified L08.9 [facility] [address] [address] Sep, [facility] [address], [place] [address] 3944 Sep, [facility] [id number] [place] [address] 66811- 1616 Aug, [facility] [address] [address] Aug, Cough R05 and Community acquired pneumonia of left lower lobe of lung J18.1 [facility] [id number] [place] [address] 69892- 0421 Aug, [facility] [address], [place] [address] 5[address] Jul, Diabetes type 1, controlled E10.9 ; Encounter for immunization Z23 and FOREIGN (obstructive sleep apnea) G47.33 [facility] [address], [place] [address] Jul, [facility] [address] [id number] [place] [address] Jul [facility] [id number], [place] [address] 7921 Jul, Diabetes type 1, controlled E10.9 [facility] [address], [place] [address]- 0428 Jul, [facility] [address] [facility] [id number] [address] Jul, [facility] [address], [place] [address] Jul, Acute seasonal allergic rhinitis due to other allergen J30.2 [facility] [address], [place] [address] Jun, [facility] [address], [place] [address] Jun, [facility] [id number] [place] [address] 53022- 0307 Jun, [facility] [address], [place] [address] 1336 May, [facility] [id number] [place] [address] 30103- 8833 Apr, [facility] [id number] [place] [address] 85472- 4112 Apr, [facility] [id number] [place] [address], [place] [address]- 35[address] Mar, Renal insufficiency N28.9 [facility] [id number] [place] [address], [place] [address]- [address]95 Mar, [facility] [id number] [place] [address] 99366- 8865 Mar, Other specified hypotension I95.89 [facility] [id number] [place] [address] 09412- 6907 Mar, [facility] [id number] [place] [address] 58838- 9315 February, [facility] [address], [place] [address]- 9680 February, Allergy, initial encounter T78.40XA [facility] [address], [place] [address]- 5007 February, Diabetes type 1, controlled E10.9 [facility] [address], [place] [address]- 9237 February, [facility] [address] [address] February, [facility] [id number] [place] [address] 03872- 6613 Dec, [facility] [id number] [place] [address] 64790- 5039 Dec, BMI 34.0-34.9,adult Z68.34 [facility] [id number] [place] [address] 88418- 1389 Nov, Generalized anxiety disorder F41.1 [facility] [address] [address]- 5101 Nov, [facility] [id number] [place] [address] 29157- 9158 Nov, [facility] [address] 42799- 7782 Nov, Skin ulcer, limited to breakdown of skin L98.491 [place] [facility] [id number] [place] [address] 07169- 1193 Oct, [facility] [id number] [place] [address] 66745- 3887 Oct, Insulin long-term use Z79.4 [facility] [address] 53731- 8024 Oct, [facility] [id number] [place] [address] 94545- 4239 Oct, Insulin long-term use Z79.4 [facility] [id number] [place] [address] 91197- 1339 Oct, [facility] [id number] [place] [address] 98922- 2620 Oct, Encounter for immunization Z23 [facility] [address] 90824- 8638 Oct, [facility] [id number] [place] [address] 90757- 7386 Sep, [facility] [address] [place] [address]- 6058 Sep, Acute nasopharyngitis J00 ; Routine adult health maintenance Z00.00 and Encounter for school examination Z02.0 [facility] [address], [place] [address]- 7911 Sep, [facility] [address], [place] [address]- 9033 Sep, Diabetes type 1, controlled E10.9 [facility] [id number] [address]- 4104 Aug, [facility] [id number] [place] [address], [place] [address]- 1481 Aug, [facility] [id number] [place] [address] 16314- 5654 Aug, [facility] [id number] [place] [address] 71522- 1544 Aug, [facility] [address], [place] [address]- 1429 18 Aug, 2016 [facility] [id number] [place] [address] 98925- 0656 17 Aug, 2016 [facility] [address], [place] [address]- 1349 Jul, [facility] [address], [place] [address]- 5096 Jul, [facility] [address], [place] [address]- 6266 27 Jun, 2016 [facility] [address], [place] [address]- 8110 26 Jun, 2016 [facility] [address], [place] [address]- 3615 12 Jun, 2016 [facility] [address], [place] [address]- 9993 07 Jun, 2016 [facility] [address] [facility] [id number] [place] [address]- 8055 Jun, Diabetes type 1, controlled E10.9 [facility] [address] [facility] [id number] [place] [address]- 5837 Jun, [facility] [id number] [place] [address]- 4215 Jun, [facility] [address] [facility] [id number] [place] [address], [place] [address]- 4885 May, [facility] [address] [facility] [id number] [place] [address]- 4881 May, [facility] [id number] [place] [address], [place] [address]- 4899 May, [facility] [id number] [place] [address]- 4220 May, [facility] [address], [place] [address]- 7544 May, [facility] [address], [place] [address]- 4512 Apr, BMI 39.0-39.9,adult Z68.39 [facility] [address], [place] [address]- 3408 Jan, [facility] [address], [place] [address]- 5832 Jan, Diabetes type 1, controlled E10.9 [facility] [address], [place] [address]- 3880 Dec, [facility] [address], [place] [address]- 9385 Dec, Diabetes type 1, controlled E10.9 [facility] [id number] [address]- 4088 Nov, [facility] [id number] [place] [address], [place] [address] 04 Nov, 2015 Hypertension I10 [facility] [address] [facility] [id number] [address]37 Nov, Hypertension I10 [facility] [id number], [place] [address]- 6147 18 Oct, 2015 Diabetes type 1, controlled E10.9 ; Insulin long-term use Z79.4 ; Non-ischemic cardiomyopathy I42.9 ; Hypertension I10 and FOREIGN ( obstructive sleep apnea) G47.33 [place] [id number] [address]- 2289 Oct, Encounter for PPD test Z11.1 IMMUNIZATIONS No Known Immunizations SOCIAL HISTORY Never Assessed REASON FOR VISIT Repower f/u PLAN OF CARE VITAL SIGNS Height 73 in 2017-07-08 Weight 278.2 lbs 2017-07-08 BMI 36.70 kg/m2 2017-07-08 MEDICATIONS Unknown Medications RESULTS No Results PROCEDURES [...]
--- OUTSIDE RECORDS SUMMARY | 2018-03-26 12:35 | XMS REPORT ---
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 Name Role Phone GRISEL RIVERA Unavailable PROBLEMS Type Condition ICD9-CM Code HYF67-RJ Code Onset Dates Condition Status SNOMED Code Problem FOREIGN (obstructive sleep apnea) G47.33 Active 81862320 Problem Insulin long-term use Z79.4 Active 926262105 Problem Diabetes type 1, controlled E10.9 Active 06760246 Problem Non-ischemic cardiomyopathy I42.9 Active 90574857 Problem Acute seasonal allergic rhinitis due to other allergen J30.2 Active 909473037 Problem BMI 34.0-34.9,adult Z68.34 Active 636848383 Problem Hypertension I10 Active 31347542 Problem Diabetes E11.9 Active 82954159 Problem Generalized anxiety disorder F41.1 Active 34902321 Problem Skin ulcer, limited to breakdown of skin L98.491 Active 08908012 ALLERGIES No Information ENCOUNTERS Encounter Location Date Diagnosis [facility] [id number] [place] [address] 34413- 5606 Jan, Medicare annual wellness visit, initial Z00.00 ; Non- ischemic cardiomyopathy I42.9 ; Diabetes type 1, controlled E10.9 ; Generalized anxiety disorder F41.1 ; Hypertension I10 and BMI 34.0-34.9,adult Z68.34 [facility] [address], [place] [address] Dec, [facility] [id number] [place] [address] 81470- 3956 Dec, [facility] [id number] [place] [address] 33308- 5890 Dec, [facility] [id number] [place] [address] 57980- 9851 Dec, Pilonidal cyst with abscess L05.01 [facility] [id number] [place] [address] 89636- 0299 Dec, [facility] [id number] [place] [address] 61936- 8952 Nov, [facility] [id number] [place] [address] 05530- 5693 Nov, [facility] [id number] [place] [address] 80467- 7238 Nov, [facility] [id number] [place] [address] 61892 -1625 Nov, [facility] [id number] [place] [address] 65503- 6020 Oct, Pilonidal cyst with abscess L05.01 [facility] [id number] [place] [address] 79690- 8352 Oct, BMI 37.0-37.9, adult Z68.37 [facility] [id number] [place] [address] 15417- 1105 Oct, [facility] [id number] [place] [address] 59852- 9123 Oct, [facility] [id number] [place] [address] 40874- 3961 Sep, Sebaceous cyst L72.3 [facility] [id number] [place] [address] 03366- 2269 Sep, [facility] [id number] [place] [address] 18494- 6799 Sep, [facility] [id number] [place] [address] 77835- 1481 Sep, Local infection of the skin and subcutaneous tissue, unspecified L08.9 [facility] [id number] [address] 4303 Sep, [facility] [id number] [place] [address] 64291- 8707 Sep, [facility] [id number] [place] [address] 95153- 6003 Aug, [facility] [id number] [place] [address] 18122 -6127 Aug, Cough R05 and Community acquired pneumonia of left lower lobe of lung J18.1 [facility] [id number] [place] [address] 14726- 1749 Aug, [facility] [id number] [place] [address] 10843- 0188 Jul, Diabetes type 1, controlled E10.9 ; Encounter for immunization Z23 and FOREIGN (obstructive sleep apnea) G47.33 [facility] [id number] [place] [address] 59103- 0645 Jul, [address] [id number] [place] [address] Jul [facility] [id number] [place] [address] 69203- 2004 Jul, Diabetes type 1, controlled E10.9 [facility] [address], [place] [address]- 5393 Jul, [facility] [id number] [place] [address] 76523- 5806 Jul, [facility] [address], [place] [address] Jul, Acute seasonal allergic rhinitis due to other allergen J30.2 [facility] [address], [place] [address] 9729 Jun, [facility] [id number] [place] [address] 22351- 3456 Jun, [facility] [address], [place] [address] 7468 Jun, [facility] [address] [place] [address], [place] [address] 8775 May, [facility] [address], [place] [address]- 7392 Apr, [facility] [id number] [place] [address] 13930- 8572 Apr, [facility] [id number] [place] [address] 84920- 9519 Mar, Renal insufficiency N28.9 [facility] [id number] [place] [address] 60407- 6435 Mar, [facility] [id number] [place] [address] 34846- 1925 Mar, Other specified hypotension I95.89 [facility] [address], [place] [address]- 0898 Mar, [facility] [id number] [place] [address] 34272- 8448 February, [facility] [address], [place] [address]- 7107 February, Allergy, initial encounter T78.40XA [facility] [address], [place] [address] 6295 February, Diabetes type 1, controlled E10.9 [facility] [address], [place] [address]- 6941 February, [facility] [id number] [place] [address] 67258- 5054 February, [facility] [address], [place] [address]- 8202 Dec, [facility] [id number] [place] [address] 35211- 0438 Dec, BMI 34.0-34.9,adult Z68.34 [facility] [id number] [place] [address] 65168- 5414 Nov, Generalized anxiety disorder F41.1 [facility] [id number] [place] [address] 31039- 2562 Nov, [facility] [address] 34709- 2778 Nov, [facility] [id number] [place] [address] 18544- 0186 Nov, Skin ulcer, limited to breakdown of skin L98.491 [facility] [id number] [place] [address] 94740- 0192 Oct, [facility] [id number] [place] [address] 77964- 1875 Oct, Insulin long-term use Z79.4 [facility] [id number] [place] [address] 47922- 8957 Oct, [facility] [id number] [place] [address] 00236- 2818 Oct, Insulin long-term use Z79.4 [facility] [id number] [place] [address] 82781- 2867 Oct, [facility] [id number] [place] [address] 10811- 2513 Oct, Encounter for immunization Z23 [facility] [id number] [place] [address] 48112- 1418 Oct, [facility] [id number] [place] [address] 31856- 3054 Sep, [facility] [id number] [place] [address] 63859- 0038 Sep, Acute nasopharyngitis J00 ; Routine adult health maintenance Z00.00 and Encounter for school examination Z02.0 [facility] [address] [facility] [id number] [place] [address]- 2521 Sep, [facility] [address] [facility] [id number] [place] [address]- 5334 Sep, Diabetes type 1, controlled E10.9 [facility] [address] [facility] [id number] [address]- 6626 Aug, [facility] [address] [facility] [id number] [place] [address]- 2707 Aug, [facility] [address] [facility] [id number] [place] [address]- 6539 Aug, [facility] [address] [facility] [id number] [place] [address]- 5214 Aug, [facility] [id number] [place] [address]- 2319 Aug, [facility] [address] [facility] [id number], [place] [address]- 1487 Aug, [facility] [id number] [place] [address]- 8621 Jul, [facility] [address] [facility] [id number] [place] [address]- 4596 Jul, [facility] [address], [place] [address]- 7993 27 Jun, 2016 [facility] [address] [facility] [id number], [place] [address]- 2547 26 Jun, 2016 [facility] [address] [facility] [id number], [place] [address]- 4093 12 Jun, 2016 [facility] [address] [facility] [id number], [place] [address]- 2543 07 Jun, 2015 [facility] [address] [facility] [id number][place] [address]- 1939 06 Jun, 2016 Diabetes type 1, controlled E10.9 [facility] [address] [address]- 1986 Jun, [facility] [address], [place] [address]- 1210 Jun, [facility] [id number] [address]- 9516 May, [facility] [id number] [place] [address] 63761- 4130 May, [facility] [id number] [place] [address]- 8348 May, [facility] [id number] [place] [address] 13533- 4614 May, [facility] [id number] [place] [address]- 2248 May, [facility] [address], [place] [address]- 9952 Apr, BMI 39.0-39.9,adult Z68.39 [facility] [address], [place] [address]- 3007 Jan, [facility] [address], [place] [address]- 0329 Jan, Diabetes type 1, controlled E10.9 [facility] [address], [place] [address]- 3295 Dec, [facility] [address], [place] [address]- 2578 Dec, Diabetes type 1, controlled E10.9 [facility] [address], [place] [address]- 7005 Nov, [facility] [address], [place] [address]- 3776 Nov, Hypertension I10 [facility] [id number] [address]- 2365 Nov, Hypertension I10 [facility] [id number] [address]- 0274 Oct, Diabetes type 1, controlled E10.9 ; Insulin long-term use Z79.4 ; Non-ischemic cardiomyopathy I42.9 ; Hypertension I10 and FOREIGN ( obstructive sleep apnea) G47.33 [facility] [facility] [id number] [address]- 2993 Oct, Encounter for PPD test Z11.1 IMMUNIZATIONS No Known Immunizations SOCIAL HISTORY Never Assessed REASON FOR VISIT Requests return call PLAN OF CARE VITAL SIGNS MEDICATIONS No [...]
--- OUTSIDE RECORDS SUMMARY | 2018-03-26 12:35 | XMS REPORT ---
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 Name Role Phone GRISEL RIVERA Unavailable PROBLEMS Type Condition ICD9-CM Code MGT09-CZ Code Onset Dates Condition Status SNOMED Code Problem FOREIGN (obstructive sleep apnea) G47.33 Active 47470655 Problem Insulin long-term use Z79.4 Active 001295988 Problem Diabetes type 1, controlled E10.9 Active 17541610 Problem Non-ischemic cardiomyopathy I42.9 Active 58494890 Problem Acute seasonal allergic rhinitis due to other allergen J30.2 Active 963451615 Problem BMI 34.0-34.9,adult Z68.34 Active 808431072 Problem Hypertension I10 Active 05883978 Problem Diabetes E11.9 Active 97953838 Problem Generalized anxiety disorder F41.1 Active 43618843 Problem Skin ulcer, limited to breakdown of skin L98.491 Active 38673824 ALLERGIES No Information ENCOUNTERS Encounter Location Date Diagnosis [facility] [address] [address] Jan, [facility] [id number] [place] [address]- 2874 Jan, Medicare annual wellness visit, initial Z00.00 ; Non- ischemic cardiomyopathy I42.9 ; Diabetes type 1, controlled E10.9 ; Generalized anxiety disorder F41.1 ; Hypertension I10 and BMI 34.0-34.9,adult Z68.34 [facility] [address] [address] Dec, [facility] [address] [address]- [address] Dec, [facility] [address] [address]- [address] Dec, [facility] [id number] [place] [address]46- 3275 Dec, Pilonidal cyst with abscess L05.01 [facility] [id number] [place] [address] 27481- 9424 Dec, [facility] [id number] [place] [address] 75410- 4776 Nov, [facility] [address] [address]- 6[address] Nov, [facility] [address] [address] Nov, [facility] [id number] [place] [address] -[address] Nov, [facility] [address] [address]- [address] Oct, Pilonidal cyst with abscess L05.01 [facility] [id number] [place] [address] 00442- 1341 Oct, BMI 37.0-37.9, adult Z68.37 [facility] [id number] [place] [address] 27635- 6082 Oct, [facility] [id number] [place] [address] 36803- 7686 Oct, [facility] [id number] [place] [address] 84112- 0656 Sep, Sebaceous cyst L72.3 [facility] [id number] [place] [address] 53958- 4526 Sep, [facility] [id number] [place] [address] 48235- 1265 Sep, [facility] [id number] [place] [address] 27635- 6800 Sep, Local infection of the skin and subcutaneous tissue, unspecified L08.9 [facility] [address] [address] Sep, [facility] [address] [address] Sep, [facility] [id number] [place] [address] 15821- 1217 Aug, [facility] [address] [address] Aug, Cough R05 and Community acquired pneumonia of left lower lobe of lung J18.1 [facility] [id number] [place] [address] 15816- 9529 Aug, [facility] [address] [address] Jul, Diabetes type 1, controlled E10.9 ; Encounter for immunization Z23 and FOREIGN (obstructive sleep apnea) G47.33 [facility] [address] [address] Jul, [facility] [address] [id number] [place] [address] Jul [facility] [id number] [address] Jul, Diabetes type 1, controlled E10.9 [facility] [address] [address] Jul, [facility] [address] [facility] [id number] [address] Jul, [facility] [address] [address] Jul, Acute seasonal allergic rhinitis due to other allergen J30.2 [facility] [address], [place] [address] 4[address] Jun, [facility] [address] [address] Jun, [facility] [id number] [place] [address] 11166- 5225 Jun, [facility] [address] [address] May, [facility] [id number] [place] [address] 95739- 4704 Apr, [facility] [id number] [place] [address] 69345- 9754 Apr, [facility] [id number] [address], [place] [address]- [address] Mar, Renal insufficiency N28.9 [facility] [id number] [address], [place] [address]99 Mar, [facility] [id number] [place] [address] 96282- 2661 Mar, Other specified hypotension I95.89 [facility] [id number] [place] [address] 17266- 6751 Mar, [facility] [address] [place] [address] 60980- 3043 February, [facility] [address], [place] [address] February, Allergy, initial encounter T78.40XA [facility] [address], [place] [address] February, Diabetes type 1, controlled E10.9 [facility] [address], [place] [address] February, [facility] [address] [address] February, [facility] [id number] [place] [address] 30330- 7176 Dec, [facility] [address] [place] [address] 16543- 4495 Dec, BMI 34.0-34.9,adult Z68.34 [facility] [id number] [place] [address] 33979- 8008 Nov, Generalized anxiety disorder F41.1 [facility] [address] [address]- 7708 Nov, [facility] [id number] [place] [address] 24185- 0164 Nov, [facility] [address] [address]- 79[address] Nov, Skin ulcer, limited to breakdown of skin L98.491 [place] [id number] [place] [address] 15527- 1331 Oct, [facility] [id number] [place] [address] 32751- 8963 Oct, Insulin long-term use Z79.4 [facility] [address] [address]- 3257 Oct, [facility] [id number] [place] [address] 75334- 4436 Oct, Insulin long-term use Z79.4 [facility] [id number] [place] [address] 11697- 0563 Oct, [facility] [id number] [place] [address] 75131- 9944 Oct, Encounter for immunization Z23 [facility] [address] [address]- 0831 Oct, [facility] [id number] [place] [address] 95857- 1708 Sep, [facility] [address] [place] [address]- 6725 Sep, Acute nasopharyngitis J00 ; Routine adult health maintenance Z00.00 and Encounter for school examination Z02.0 [facility] [address], [place] [address]- 91[address] Sep, [facility] [address], [place] [address]- 9652 Sep, Diabetes type 1, controlled E10.9 [facility] [id number] [place] [address]- [address] Aug, [facility] [id number] [place] [address], [place] [address]- 6631 Aug, [facility] [id number] [place] [address] 40646- 1041 Aug, [facility] [id number] [place] [address] 88308- 3488 Aug, [facility] [address], [place] [address]- 54[address] 18 Aug, 2016 [facility] [id number] [place] [address] 09557- 0410 17 Aug, 2016 [facility] [address], [place] [address]- 77[address] Jul, [facility] [address], [place] [address]- 9812 Jul, [facility] [address], [place] [address]- 2777 27 Jun, 2016 [facility] [address], [place] [address]- 4142 26 Jun, 2016 [facility] [address], [place] [address]- 4780 12 Jun, 2016 [facility] [address], [place] [address]- 1307 07 Jun, 2016 [facility] [address] [facility] [facility] [id number] [place] [address]- 2541 Jun, Diabetes type 1, controlled E10.9 [facility] [address] [facility] [id number] [place] [address]- 8596 Jun, [facility] [address] [place] [address]- 0400 Jun, [facility] [address] [facility] [facility] [id number] [address], [place] [address]- 8847 May, [facility] [address] [facility] [facility] [id number] [place] [address]- 8816 May, [facility] [address] [place] [address], [place] [address]- 0684 May, [facility] [address] [place] [address]- 7926 May, [facility] [address], [place] [address]- 8912 May, [facility] [address], [place] [address]- 2036 Apr, BMI 39.0-39.9,adult Z68.39 [facility] [address], [place] [address]- 3212 Jan, [facility] [address], [place] [address]- 5191 Jan, Diabetes type 1, controlled E10.9 [facility] [address], [place] [address]- 9321 Dec, [facility] [address], [place] [address]- 6542 Dec, Diabetes type 1, controlled E10.9 [facility] [id number] [place] [address]- 8668 Nov, [facility] [id number] [address], [place] [id number] 04 Nov, 2015 Hypertension I10 [facility] [address] [facility] [facility] [id number], [place] [address]- 8140 Nov, Hypertension I10 [facility] [id number] [address]- 6398 18 Oct, 2015 Diabetes type 1, controlled E10.9 ; Insulin long-term use Z79.4 ; Non-ischemic cardiomyopathy I42.9 ; Hypertension I10 and FOERIGN ( obstructive sleep apnea) G47.33 [place] [id number] [address]- 6524 Oct, Encounter for PPD test Z11.1 IMMUNIZATIONS No Known Immunizations SOCIAL HISTORY Never Assessed REASON FOR VISIT Repower f/u PLAN OF CARE VITAL SIGNS Height 73 in 2017-07-29 Weight 281 lbs 2017-07-29 BMI 37.07 kg/m2 2017-07-29 MEDICATIONS Unknown Medications RESULTS No Results PROCEDURES [...]
--- OUTSIDE RECORDS SUMMARY | 2018-03-26 12:35 | XMS REPORT ---
Author Author GRISEL RIVERA [facility] Address [address] [place] [address] Care Team Providers Care Insurance Marketing Rep Name Role Phone GRISEL RIVERA Unavailable PROBLEMS Type Condition ICD9-CM Code EEW03-AK Code Onset Dates Condition Status SNOMED Code Problem Insulin long-term use Z79.4 Active 105545576 Problem Hypertension I10 Active 80063494 Problem Diabetes E11.9 Active 51350000 Problem Seasonal allergies J30.2 Active 955168658 Problem BMI 34.0-34.9,adult Z68.34 Active 171286823 Problem FOREIGN (obstructive sleep apnea) G47.33 Active 71494250 Problem Non-ischemic cardiomyopathy I42.9 Active 80511170 Problem Generalized anxiety disorder F41.1 Active 89924087 Problem Skin ulcer, limited to breakdown of skin L98.491 Active 59210463 ALLERGIES No Information ENCOUNTERS Encounter Location Date Diagnosis [place] [id number] [place] [address] 24204- 2649 February, [place] [id number] [place] [address] 72071- 2377 February, Seasonal allergies J30.2 ; Generalized anxiety disorder F41.1 ; Diabetes E11.9 and Insulin long-term use Z79.4 [place] [id number] [place] [address] 18483- 8662 Jan, [place] [id number] [place] [address] 47008- 0497 Jan, Medicare annual wellness visit, initial Z00.00 ; Non- ischemic cardiomyopathy I42.9 ; Diabetes type 1, controlled E10.9 ; Generalized anxiety disorder F41.1 ; Hypertension I10 and BMI 34.0-34.9,adult Z68.34 [place] [address] [place] [address] Dec, [facility] [id number] [place] [address] 58880- 3470 Dec, [facility] [id number] [place] [address] 61793- 8539 Dec, [facility] [id number] [place] [address] 05869- 7881 Dec, Pilonidal cyst with abscess L05.01 [facility] [id number] [place] [address] 19871- 0073 Dec, [facility] [id number] [place] [address] 14557- 4564 Nov, [facility] [id number] [place] [address] 31597- 8480 Nov, [facility] [id number] [place] [address] 56643- 1256 Nov, [facility] [id number] [place] [address] 79852 -2627 Nov, [facility] [id number] [place] [address] 63062- 3010 Oct, Pilonidal cyst with abscess L05.01 [facility] [id number] [place] [address] 28198- 6358 Oct, BMI 37.0-37.9, adult Z68.37 [facility] [id number] [place] [address] 51220- 5466 Oct, [facility] [id number] [place] [address] 39906- 3756 Oct, [facility] [id number] [place] [address] 46238- 0493 Sep, Sebaceous cyst L72.3 [facility] [id number] [address] Sep, [facility] [address] [address] 6163 Sep, [facility] [id number] [place] [address] 13674- 4838 Sep, Local infection of the skin and subcutaneous tissue, unspecified L08.9 [facility] [id number] [place] [address] 46420- 5270 Sep, [facility] [id number] [place] [address] 00347- 5704 Sep, [facility] [id number] [place] [address] 66369- 2834 Aug, [facility] [address] [address] Aug, Cough R05 and Community acquired pneumonia of left lower lobe of lung J18.1 [facility] [address] [address] Aug, [facility] [id number] [place] [address] 70660- 9414 Jul, Diabetes type 1, controlled E10.9 ; Encounter for immunization Z23 and FOREIGN (obstructive sleep apnea) G47.33 [facility] [address] [address] 6803 Jul, [facility] [address] [id number] [place] [address] [facility] [address] [facility] [id number] [address] Jul, Diabetes type 1, controlled E10.9 [facility] [address] [address]398 Jul, [facility] [address] [facility] [id number] [address] 9877 Jul, [facility] [address] [address] Jul, Acute seasonal allergic rhinitis due to other allergen J30.2 [facility] [id number] [place] [address] 03766- 8407 Jun, [facility] [id number] [place] [address] 79341- 2630 Jun, [facility] [id number] [place] [address] 72942- 0272 Jun, [facility] [id number] [place] [address] 37068- 8484 May, [facility] [id number] [place] [address] 71496- 6233 Apr, [facility] [id number] [place] [address] 58761- 8138 Apr, [facility] [id number] [place] [address] 34207- 5661 Mar, Renal insufficiency N28.9 [facility] [id number] [place] [address] 99198- 3038 Mar, [facility] [id number] [place] [address] 41938- 1256 Mar, Other specified hypotension I95.89 [facility] [id number] [place] [address] 19782- 1062 Mar, [facility] [id number] [place] [address] 48619- 8097 February, [facility] [id number] [place] [address] 49861- 4550 February, Allergy, initial encounter T78.40XA [facility] [id number] [place] [address] 06413- 8920 February, Diabetes type 1, controlled E10.9 [facility] [address] [place] [address] February, [facility] [id number] [place] [address] 67713- 2681 February, [facility] [id number] [place] [address] 00528- 6463 Dec, [facility] [id number] [place] [address] 86248- 7064 Dec, BMI 34.0-34.9,adult Z68.34 [facility] [id number] [place] [address] 51598- 3486 Nov, Generalized anxiety disorder F41.1 [facility] [id number] [place] [address] 83836- 5556 Nov, [facility] [id number] [place] [address] 91196- 1081 Nov, [facility] [id number] [place] [address] 92009- 1777 Nov, Skin ulcer, limited to breakdown of skin L98.491 [facility] [id number] [place] [address] 66821- 5432 Oct, [facility] [id number] [place] [address] 33096- 3420 Oct, Insulin long-term use Z79.4 [facility] [id number] [place] [address] 62393- 5546 Oct, [facility] [id number] [place] [address] 68150- 5657 Oct, Insulin long-term use Z79.4 [facility] [id number] [place] [address] 37277- 0201 Oct, [facility] [id number] [place] [address] 07879- 7179 Oct, Encounter for immunization Z23 [facility] [address] [facility] [id number] [place] [address]- 1261 Oct, [facility] [id number] [place] [address] 76032- 2033 Sep, [facility] [address] [facility] [id number] [place] [address]- 0082 Sep, Acute nasopharyngitis J00 ; Routine adult health maintenance Z00.00 and Encounter for school examination Z02.0 [facility] [address] [facility] [id number] [place] [address]- 6100 Sep, [facility] [id number] [place] [address] 47783- 1633 Sep, Diabetes type 1, controlled E10.9 [facility] [id number] [place] [address] 73705- 6006 Aug, [facility] [id number] [place] [address] 33777- 3281 Aug, [facility] [id number] [place] [address]- [address] Aug, [facility] [id number] [place] [address] 47224- 4131 Aug, [facility] [id number] [address]- 7727 Aug, [facility] [id number] [address]- 9419 17 Aug, 2016 [facility] [id number] [address]- 4752 Jul, [facility] [id number] [address] 3546 Jul, [facility] [address] [facility] [id number] [place] [address]- 9601 27 Jun, 2016 [facility] [id number] [address]- 2831 Jun, 2015 [facility] [address] [facility] [id number] [place] [address]- 9769 12 Jun, 2015 [facility] [address] [facility] [id number] [place] [address]- 7433 Jun, 2015 [facility] [id number] [place] [address]- 1441 Jun, Diabetes type 1, controlled E10.9 [facility] [address] [facility] [id number] [place] [address]- 9484 Jun, 2015 [facility] [address] [facility] [id number] [place] [address], [place] [address]- 7330 Jun, 2015 [facility] [id number] [place] [address]- 7310 May, [facility] [id number] [place] [address] 03421- 9828 May, [facility] [id number] [address]- 9376 May, [facility] [id number] [place] [address]- 9637 May, [facility] [id number] [address]- 9141 May, [facility] [id number] [address]- 2399 Apr, BMI 39.0-39.9,adult Z68.39 [facility] [id number] [address]- 3207 Jan, [facility] [id number] [address]- 7979 Jan, Diabetes type 1, controlled E10.9 [facility] [id number] [place] [address]- [address] Dec, [facility] [id number] [address]- 5966 Dec, Diabetes type 1, controlled E10.9 [place] [id number] [address]- 1027 Nov, [place] [id number] [place] [address] 26679- 7395 Nov, Hypertension I10 [place] [id number] [place] [address] 95458- 2210 Nov, Hypertension I10 [place] [id number] [place] [address] 91413- 8814 Oct, Diabetes type 1, controlled E10.9 ; Insulin long-term use Z79.4 ; Non-ischemic cardiomyopathy I42.9 ; Hypertension I10 and FOREIGN ( obstructive sleep apnea) G47.33 [place] [id number] [address]- 4044 Oct, Encounter for PPD test Z11.1 IMMUNIZATIONS No Known Immunizations SOCIAL HISTORY Never Assessed REASON FOR VISIT upload request PLAN OF CARE VITAL SIGNS MEDICATIONS Unknown Medications RESULTS No Results PROCEDURES No Known procedures INSTRUCTIONS MEDICATIONS ADMINISTERED No Known Medications MEDICAL (GENERAL) HISTORY Type Description Date Medical History Diabetes Medical History Congestive heart disease Medical History sleep apnea-has CPAP Medical History seasonal allergies Surgical History pacemaker/defibrillator Surgical History carpal tunnel release Surgical History cyst removed from lower back 02/2018 Hospitalization History complications post op Hospitalization History 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
--- OUTSIDE RECORDS SUMMARY | 2018-03-26 12:36 | XMS REPORT ---
Author Author GRISEL RIVERA Organization [facility] Address [address] [place] [address] Care Team Providers Care Nuclear Control Operator Name Role Phone GRISEL RIVERA Unavailable PROBLEMS Type Condition ICD9-CM Code FOF47-HZ Code Onset Dates Condition Status SNOMED Code Problem FOREIGN (obstructive sleep apnea) G47.33 Active 31205695 Problem Insulin long-term use Z79.4 Active 405469261 Problem Diabetes type 1, controlled E10.9 Active 59446811 Problem Non-ischemic cardiomyopathy I42.9 Active 89833572 Problem Acute seasonal allergic rhinitis due to other allergen J30.2 Active 063519696 Problem BMI 34.0-34.9,adult Z68.34 Active 288112951 Problem Hypertension I10 Active 67793378 Problem Diabetes E11.9 Active 75233094 Problem Generalized anxiety disorder F41.1 Active 91947584 Problem Skin ulcer, limited to breakdown of skin L98.491 Active 44614877 ALLERGIES No Information ENCOUNTERS Encounter Location Date Diagnosis [place] [id number] [place] [address] 97126- 7028 Jan, Medicare annual wellness visit, initial Z00.00 [place] [id number] [place] [address] 20626- 2534 Dec, [place] [id number] [place] [address] 34959- 0864 Dec, [place] [id number] [place] [address] 09349- 8658 Dec, [place] [id number] [place] [address] 22888- 6040 Dec, Pilonidal cyst with abscess L05.01 [place] [address] 20506- 7260 Dec, [facility] [address], [place] [address] 4060 Nov, [facility] [id number] [place] [address] 29676- 0192 Nov, [facility] [id number] [place] [address] 00795- 9840 Nov, [facility] [id number] [place] [address] 37978 -5781 Nov, [facility] [id number] [place] [address] 42212- 6407 Oct, Pilonidal cyst with abscess L05.01 [facility] [id number] [place] [address] 90689- 3662 Oct, BMI 37.0-37.9, adult Z68.37 [facility] [id number] [place] [address] 37011- 4579 Oct, [facility] [id number] [place] [address] 33308- 3404 Oct, [facility] [id number] [place] [address] 89095- 2547 Sep, Sebaceous cyst L72.3 [facility] [id number] [place] [address] 17322- 4037 Sep, [facility] [id number] [place] [address] 83849- 5510 Sep, [facility] [id number] [place] [address] 68054- 0869 Sep, Local infection of the skin and subcutaneous tissue, unspecified L08.9 [facility] [id number] [place] [address] 04581- 8443 Sep, [facility] [id number] [place] [address] 81589- 9737 Sep, [facility] [id number] [place] [address] 83633- 5634 Aug, [facility] [id number] [place] [address] 33553 -1962 Aug, Cough R05 and Community acquired pneumonia of left lower lobe of lung J18.1 [facility] [id number] [place] [address] 78761- 5905 Aug, [facility] [id number] [place] [address] 49422- 4639 Jul, Diabetes type 1, controlled E10.9 ; Encounter for immunization Z23 and FOREIGN (obstructive sleep apnea) G47.33 [facility] [id number] [place] [address] 54938- 5604 Jul, [address] [id number] [address] Jul [facility] [id number] [place] [address] 79234- 1469 Jul, Diabetes type 1, controlled E10.9 [facility] [id number] [place] [address] 40667- 0260 Jul, [facility] [id number] [place] [address] 06729- 9098 Jul, [facility] [id number] [place] [address] 55080 -8353 Jul, Acute seasonal allergic rhinitis due to other allergen J30.2 [facility] [id number] [place] [address] 18517- 6228 Jun, [place] [id number] [place] [address] 77260- 1518 Jun, [facility] [id number] [place] [address] 86861- 1827 14 Jun, 2017 [facility] [address] [place] [address]- 2182 May, [facility] [id number] [place] [address] 82427- 3584 Apr, [facility] [id number] [place] [address] 05420- 1760 Apr, [facility] [id number] [place] [address] 91073- 7377 Mar, Renal insufficiency N28.9 [facility] [address] 06696- 7397 Mar, [facility] [address] 60407- 8124 Mar, Other specified hypotension I95.89 [facility] [id number] [place] [address] 25611- 2401 Mar, [facility] [id number] [place] [address] 94566- 8621 February, [facility] [id number] [place] [address] 61974- 7962 February, Allergy, initial encounter T78.40XA [facility] [id number] [place] [address] 62588- 6355 February, Diabetes type 1, controlled E10.9 [facility] [id number] [place] [address] 16769- 9217 February, [facility] [id number] [place] [address] 02184- 8908 February, [facility] [id number] [place] [address] 89464- 2412 Dec, [facility] [id number] [place] [address] 87937- 5735 Dec, BMI 34.0-34.9,adult Z68.34 [facility] [address] 07627- 2809 Nov, Generalized anxiety disorder F41.1 [facility] [address] [place] [address] 80519- 9394 07 Nov, 2016 [facility] [id number] [place] [address] 431896- 5528 Nov, [facility] [id number] [place] [address] 28719- 7445 Nov, Skin ulcer, limited to breakdown of skin L98.491 [facility] [id number] [place] [address] 26426- 1710 Oct, [facility] [id number] [place] [address] 39312- 3640 Oct, Insulin long-term use Z79.4 [facility] [id number] [place] [address] 10432- 7766 Oct, [facility] [id number] [place] [address] 53387- 1033 Oct, Insulin long-term use Z79.4 [facility] [id number] [place] [address] 99738- 3273 Oct, [facility] [id number] [place] [address] 46677- 3963 Oct, Encounter for immunization Z23 [facility] [id number] [place] [address] 96656- 1529 Oct, [facility] [address] [place] [address] 98889- 6530 Sep, [facility] [id number] [place] [address] 99465- 3357 Sep, Acute nasopharyngitis J00 ; Routine adult health maintenance Z00.00 and Encounter for school examination Z02.0 [facility] [id number] [place] [address] 08443- 2575 Sep, [place] [address] [id number] [place] [address]- 0780 Sep, Diabetes type 1, controlled E10.9 [facility] [place] [address] [id number] [place] [address]- 0331 30 Aug, 2016 [facility] [address] [id number] [place] [address]- 9351 Aug, [facility] [address] [id number] [place] [address]- 0740 Aug, [facility] [address] [id number] [place] [address]- 5539 Aug, [facility] [address] [id number] [place] [address]- 9303 Aug, [facility] [address] [facility] [id number] [place] [address]- 4551 Aug, [facility] [address] [facility] [id number] [place] [address]- 5368 Jul, [facility] [address] [id number] [place] [address]- 0802 10 Jul, 2016 [facility] [address] [facility] [id number] [place] [address]- 6472 27 Jun, 2015 [facility] [address] [id number] [place] [address]- 9540 26 Sep, 2015 [facility] [address] [id number] [place] [address]- 9429 12 Sep, 2015 [facility] [address] [id number] [place] [address]- 8204 07 Sep, 2015 [facility] [address] [facility] [id number] [place] [address]- 5603 06 Sep, 2016 Diabetes type 1, controlled E10.9 [facility] [place] [address] [id number] [place] [address]- 3265 06 Sep, 2015 [facility] [address] [place] [address]- 7969 Jun, [facility] [address] [address]- 6059 May, [facility] [id number] [place] [address]- 2144 May, [facility] [id number] [place] [address], [place] [address]- 9064 May, [facility] [id number] [place] [address]- 0361 May, [facility] [id number] [place] [address], [place] [address]- 6324 May, [facility] [address] [place] [address] 40258- 6209 Apr, BMI 39.0-39.9,adult Z68.39 [facility] [address], [place] [address]- 1634 Jan, [facility] [address] [place] [address] 88904- 0698 Jan, Diabetes type 1, controlled E10.9 [facility] [address], [place] [address]- 4236 Dec, [facility] [address], [place] [address]- 9720 Dec, Diabetes type 1, controlled E10.9 [facility] [address], [place] [address]- 3699 Nov, [facility] [address] [place] [address] 66951- 8716 Nov, Hypertension I10 [facility] [address] [address]- 6254 Nov, Hypertension I10 [facility] [address] [place] [address] 29877- 3095 Oct, Diabetes type 1, controlled E10.9 ; Insulin long-term use Z79.4 ; Non-ischemic cardiomyopathy I42.9 ; Hypertension I10 and FOREIGN ( obstructive sleep apnea) G47.33 [facility] [address] [facility] [id number] [place] [address]- 8249 Oct, Encounter for PPD test Z11.1 IMMUNIZATIONS No Known Immunizations SOCIAL HISTORY Never Assessed REASON FOR VISIT insulin pump details PLAN OF CARE VITAL SIGNS MEDICATIONS Unknown Medications RESULTS No Results PROCEDURES No Known procedures INSTRUCTIONS MEDICATIONS ADMINISTERED No Known Medications MEDICAL (GENERAL) HISTORY Type Description Date Medical History Diabetes Medical History Congestive heart disease Medical History sleep apnea-has CPAP Medical History seasonal allergies Surgical History pacemaker/defibrillator Surgical History carpal tunnel release Hospitalization History complications post op Hospitalization History 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
--- OUTSIDE RECORDS SUMMARY | 2018-03-26 12:36 | XMS REPORT ---
Author Author GRISEL RIVERA Organization [facility] Address [address] [place] [address] Care Team Providers Care Log Haul Operator Name Role Phone GRISEL RIVERA Unavailable PROBLEMS Type Condition ICD9-CM Code [id number] Code Onset Dates Condition Status SNOMED Code Problem FOREIGN (obstructive sleep apnea) G47.33 Active 54942185 Problem Insulin long-term use Z79.4 Active 531437756 Problem Diabetes type 1, controlled E10.9 Active 74313279 Problem Non-ischemic cardiomyopathy I42.9 Active 73535843 Problem Acute seasonal allergic rhinitis due to other allergen J30.2 Active 288370996 Problem BMI 34.0-34.9,adult Z68.34 Active 981701797 Problem Hypertension I10 Active 77759677 Problem Diabetes E11.9 Active 71667026 Problem Generalized anxiety disorder F41.1 Active 69457019 Problem Skin ulcer, limited to breakdown of skin L98.491 Active 03959323 ALLERGIES No Information SOCIAL HISTORY Never Assessed PLAN OF CARE VITAL SIGNS Height 73 in 2017-03-04 Weight 275.3 lbs 2017-03-04 BMI 36.32 kg/m2 2017-03-04 MEDICATIONS No Known Medications RESULTS No Results PROCEDURES No Known procedures IMMUNIZATIONS No Known Immunizations MEDICAL (GENERAL) HISTORY Type Description Date Medical History Diabetes Medical History Congestive heart disease Medical History sleep apnea-has CPAP Medical History seasonal allergies Surgical History pacemaker/defibrillator Surgical History carpal tunnel release Hospitalization History complications post op Hospitalization History 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
--- OUTSIDE RECORDS SUMMARY | 2018-03-26 12:36 | XMS REPORT ---
Author Author GRISEL RIVERA Organization [facility] [place] [facility] Address [address] [place] [address] Care Team Providers Care Porter Head Name Role Phone GRISEL RIVERA Unavailable PROBLEMS Type Condition ICD9-CM Code UVP29-GX Code Onset Dates Condition Status SNOMED Code Problem FOREIGN (obstructive sleep apnea) G47.33 Active 55351406 Problem Insulin long-term use Z79.4 Active 422276295 Problem Diabetes type 1, controlled E10.9 Active 53157632 Problem Non-ischemic cardiomyopathy I42.9 Active 98438280 Problem Acute seasonal allergic rhinitis due to other allergen J30.2 Active 131952006 Problem BMI 34.0-34.9,adult Z68.34 Active 360091427 Problem Hypertension I10 Active 82987822 Problem Diabetes E11.9 Active 87547260 Problem Generalized anxiety disorder F41.1 Active 48720803 Problem Skin ulcer, limited to breakdown of skin L98.491 Active 16065824 ALLERGIES No Information ENCOUNTERS Encounter Location Date Diagnosis [place] [id number] [place] [address] 75058- 6872 Jan, Medicare annual wellness visit, initial Z00.00 [place] [id number] [place] [address] 67986- 4664 Dec, [facility] [place] [facility] [id number] [place] [address] 54323- 4343 Dec, [place] [id number] [place] [address] 21889- 0342 Dec, [place] [id number] [place] [address] 58948- 2619 Dec, Pilonidal cyst with abscess L05.01 [place] [address] [address]606- 8575 Dec, [facility] [place] [facility] [address] [address] Nov, [facility] [place] [facility] [id number] [place] [address] 88437- 0931 Nov, [facility] [place] [facility] [id number] [place] [address] 12872- 1448 Nov, [facility] [id number] [place] [address] 51092 -9414 Nov, [facility] [place] [facility] [id number] [place] [address] 47747- 1633 Oct, Pilonidal cyst with abscess L05.01 [facility] [place] [facility] [id number] [place] [address] 41263- 1215 Oct, BMI 37.0-37.9, adult Z68.37 [facility] [place] [facility] [id number] [place] [address] 94681- 6157 Oct, [facility] [place] [facility] [id number] [place] [address] 43838- 1636 Oct, [facility] [place] [facility] [id number] [place] [address] 19010- 2223 Sep, Sebaceous cyst L72.3 [facility] [place] [facility] [id number] [place] [address] 82754- 4639 Sep, [facility] [place] [facility] [id number] [place] [address] 55646- 7688 Sep, [facility] [place] [facility] [id number] [place] [address] 16541- 2895 Sep, Local infection of the skin and subcutaneous tissue, unspecified L08.9 [facility] [place] [facility] [id number] [place] [address] 47542- 8241 Sep, [facility] [place] [facility] [id number] [place] [address] 48169- 9104 Sep, [facility] [place] [facility] [id number] [place] [address] 31214- 0545 Aug, [facility] [id number] [place] [address] 37531 -7731 Aug, Cough R05 and Community acquired pneumonia of left lower lobe of lung J18.1 [facility] [place] [facility] [id number] [place] [address] 24977- 6405 Aug, [facility] [place] [facility] [id number] [place] [address] 37598- 3413 Jul, Diabetes type 1, controlled E10.9 ; Encounter for immunization Z23 and FOREIGN (obstructive sleep apnea) G47.33 [facility] [facility] [id number] [place] [address] 74083- 8126 Jul, [address] [id number] [address] Jul [facility] [facility] [id number] [place] [address] 00443- 1965 Jul, Diabetes type 1, controlled E10.9 [facility] [place] [facility] [id number] [place] [address] 43919- 8070 Jul, [facility] [place] [facility] [id number] [place] [address] 64095- 5801 Jul, [facility] [id number] [place] [address] 97362 -3166 Jul, Acute seasonal allergic rhinitis due to other allergen J30.2 [facility] [facility] [id number] [place] [address] 15539- 9130 Jun, [place] [id number] [place] [address] 82694- 5130 Jun, [facility] [facility] [id number] [place] [address] 93474- 6503 14 Jun, 2017 [facility] [place] [facility] [address] [place] [address]- 5064 May, [facility] [place] [facility] [id number] [place] [address] 30138- 0518 Apr, [facility] [place] [facility] [id number] [place] [address] 21833- 5694 Apr, [facility] [facility] [id number] [place] [address] 47834- 0727 Mar, Renal insufficiency N28.9 [facility] [facility] [address] 19514- 4786 Mar, [facility] [facility] [address] 75489- 3892 Mar, Other specified hypotension I95.89 [facility] [place] [facility] [id number] [place] [address] 47203- 7666 Mar, [facility] [facility] [id number] [place] [address] 61573- 3021 February, [facility] [facility] [id number] [place] [address] 06132- 2654 February, Allergy, initial encounter T78.40XA [facility] [id number] [place] [address] 50859- 1098 February, Diabetes type 1, controlled E10.9 [facility] [facility] [id number] [place] [address] 43609- 7372 February, [facility] [facility] [id number] [place] [address] 88797- 8190 February, [facility] [facility] [id number] [place] [address] 36310- 3970 Dec, [facility] [facility] [id number] [place] [address] 57085- 7554 Dec, BMI 34.0-34.9,adult Z68.34 [facility] [address] 55653- 0248 Nov, Generalized anxiety disorder F41.1 [facility] [id number] [place] [address] 25688- 7944 07 Nov, 2016 [facility] [facility] [id number] [place] [address] 752588- 6369 Nov, [facility] [id number] [place] [address] 52366- 6812 Nov, Skin ulcer, limited to breakdown of skin L98.491 [facility] [id number] [place] [address] 07571- 1738 Oct, [facility] [id number] [place] [address] 16335- 7027 Oct, Insulin long-term use Z79.4 [facility] [id number] [place] [address] 84047- 8185 Oct, [facility] [facility] [id number] [place] [address] 78952- 0579 Oct, Insulin long-term use Z79.4 [facility] [id number] [place] [address] 16629- 0083 Oct, [facility] [id number] [place] [address] 59054- 7763 Oct, Encounter for immunization Z23 [facility] [id number] [place] [address] 24519- 0291 Oct, [facility] [id number] [place] [address] 99528- 5687 Sep, [facility] [id number] [place] [address] 44291- 2743 Sep, Acute nasopharyngitis J00 ; Routine adult health maintenance Z00.00 and Encounter for school examination Z02.0 [facility] [id number] [place] [address] 47962- 5134 Sep, [place] [address] [id number] [place] [address]- 1030 Sep, Diabetes type 1, controlled E10.9 [facility] [address] [id number] [place] [address]- 3494 30 Aug, 2016 [facility] [address] [id number] [place] [address]- 7234 Aug, [facility] [address] [id number] [place] [address]- 0781 Aug, [facility] [address] [id number] [place] [address]- 1643 Aug, [facility] [address] [id number] [place] [address]- 9723 Aug, [facility] [address] [facility] [id number] [place] [address]- 3538 Aug, [facility] [address] [facility] [id number] [place] [address]- 2634 Jul, [facility] [address] [id number] [place] [address]- 0290 10 Jul, 2016 [facility] [address] [facility] [id number] [place] [address]- 4842 27 Jun, 2015 [facility] [address] [id number] [place] [address]- 7291 26 Sep, 2015 [facility] [address] [id number] [place] [address]- 8105 12 Sep, 2015 [facility] [address] [id number] [place] [address]- 9101 07 Sep, 2015 [facility] [address] [facility] [id number] [place] [address]- 3998 06 Sep, 2016 Diabetes type 1, controlled E10.9 [facility] [address] [id number] [place] [address]- 3588 06 Sep, 2015 [facility] [address] [address]- 1356 Jun, [facility] [facility] [address] [address]- 5664 May, [facility] [facility] [id number] [place] [address]- 8326 May, [facility] [facility] [id number] [place] [address], [place] [address]- 3418 May, [facility] [facility] [id number] [place] [address]- 9539 May, [facility] [facility] [id number] [place] [address], [place] [address]- 7865 May, [facility] [facility] [id number] [place] [address] 29791- 5048 Apr, BMI 39.0-39.9,adult Z68.39 [facility] [facility] [address] [address]- 8488 Jan, [facility] [facility] [id number] [place] [address] 85509- 8053 Jan, Diabetes type 1, controlled E10.9 [facility] [facility] [address] [address]- 2014 Dec, [facility] [facility] [address] [address]- 7045 Dec, Diabetes type 1, controlled E10.9 [facility] [place] [facility] [address] [address]- 3157 Nov, [facility] [facility] [id number] [place] [address] 46551- 1634 Nov, Hypertension I10 [facility] [facility] [address] [address]- 7294 Nov, Hypertension I10 [facility] [facility] [id number] [place] [address] 98456- 4936 Oct, Diabetes type 1, controlled E10.9 ; Insulin long-term use Z79.4 ; Non-ischemic cardiomyopathy I42.9 ; Hypertension I10 and FOREIGN ( obstructive sleep apnea) G47.33 [facility] [facility] [address] [facility] [id number] [place] [address]- 0617 Oct, Encounter for PPD test Z11.1 IMMUNIZATIONS No Known Immunizations SOCIAL HISTORY Never Assessed REASON FOR VISIT renal insufficiency PLAN OF CARE VITAL SIGNS MEDICATIONS Unknown [...]
--- OUTSIDE RECORDS SUMMARY | 2018-03-26 12:36 | XMS REPORT ---
Author Author PEDRO TAN Organization [facility] Address [address] [place] [address] Care Team Providers Care Corrections Lieutenant Name Role Phone PEDRO TAN Unavailable PROBLEMS Type Condition ICD9-CM Code UON35-UJ Code Onset Dates Condition Status SNOMED Code Problem FOREIGN (obstructive sleep apnea) G47.33 Active 55658988 Problem Insulin long-term use Z79.4 Active 136839397 Problem Diabetes type 1, controlled E10.9 Active 27255844 Problem Non-ischemic cardiomyopathy I42.9 Active 35284348 Problem Acute seasonal allergic rhinitis due to other allergen J30.2 Active 678690490 Problem BMI 34.0-34.9,adult Z68.34 Active 977218506 Problem Hypertension I10 Active 91424950 Problem Diabetes E11.9 Active 74267303 Problem Generalized anxiety disorder F41.1 Active 84283632 Problem Skin ulcer, limited to breakdown of skin L98.491 Active 01307798 ALLERGIES No Known Allergies ENCOUNTERS Encounter Location Date Diagnosis [place] [id number] [place] [address] 09427- 8633 Jan, [facility] [id number] [place] [address] 19302- 0840 Jan, Medicare annual wellness visit, initial Z00.00 ; Non- ischemic cardiomyopathy I42.9 ; Diabetes type 1, controlled E10.9 ; Generalized anxiety disorder F41.1 ; Hypertension I10 and BMI 34.0-34.9,adult Z68.34 [facility] [id number] [place] [address] 38823- 9018 Dec, [facility] [id number] [place] [address] 91103- 9126 Dec, [facility] [address] [place] [id number] [place] [address] 59353- 0115 Dec, [facility] [id number] [place] [address] 49013- 3389 Dec, Pilonidal cyst with abscess L05.01 [facility] [id number] [place] [address] 14051- 9404 Dec, [facility] [address] [place] [id number] [place] [address] 90297- 8454 Nov, [facility] [address] [place] [id number] [place] [address] 53738- 1793 Nov, [facility] [address] [place] [id number] [place] [address] 02966- 7955 Nov, [facility] [address] [place] [address] [id number] [place] [address] 11176 -7307 Nov, [facility] [address] [place] [id number] [place] [address] 71406- 1586 Oct, Pilonidal cyst with abscess L05.01 [facility] [id number] [place] [address] 82644- 7841 Oct, BMI 37.0-37.9, adult Z68.37 [facility] [address] [place] [id number] [place] [address] 47265- 7252 Oct, [facility] [address] [place] [id number] [place] [address] 60865- 1010 Oct, [facility] [id number] [place] [address] 45651- 2211 Sep, Sebaceous cyst L72.3 [facility] [address] [place] [id number] [place] [address] 35497- 1482 Sep, [facility] [address] [place] [id number] [place] [address] 50913- 1569 Sep, [facility] [address] [place] [id number] [place] [address] 86294- 5444 Sep, Local infection of the skin and subcutaneous tissue, unspecified L08.9 [facility] [address] [address] 25[address] Sep, [facility] [address] [address]- 5047 Sep, [facility] [address] [address] 27[address] Aug, [facility] [address] [address] Aug, Cough R05 and Community acquired pneumonia of left lower lobe of lung J18.1 [facility] [id number] [place] [address] 03942- 8020 Aug, [place] [address] [address] 8882 Jul, Diabetes type 1, controlled E10.9 ; Encounter for immunization Z23 and FOREIGN (obstructive sleep apnea) G47.33 [facility] [address] [address] 6[address] Jul, [facility] [address] [id number] [place] [address] Jul [place] [address] [address]- 6171 Jul, Diabetes type 1, controlled E10.9 [facility] [address] [address]- 7056 Jul, [facility] [address] [facility] [id number] [address] 8490 Jul, [facility] [address] [address] Jul, Acute seasonal allergic rhinitis due to other allergen J30.2 [facility] [address] [address] 6365 Jun, [facility] [address] [address]- 1318 Jun, [facility] [address] [address]- 3310 Jun, [facility] [address] [address]- 5505 May, [facility] [id number] [place] [address] 21095- 8220 Apr, [facility] [address] [address]- 5490 Apr, [facility] [address] [place] [id number] [place] [address] 03713- 1366 Mar, Renal insufficiency N28.9 [facility] [id number] [place] [address] 61679- 2748 Mar, [facility] [id number] [place] [address] 81295- 0090 Mar, Other specified hypotension I95.89 [facility] [address] [address] 3981 Mar, [facility] [address] [address] 6649 February, [facility] [address] [address]- 1220 February, Allergy, initial encounter T78.40XA [facility] [address] [place] [id number] [address] 9028 February, Diabetes type 1, controlled E10.9 [facility] [address] 1475 February, [facility] [address] [address]- 3196 February, [facility] [address] [address]- 9763 Dec, [facility] [id number] [place] [address] 65027- 3688 Dec, BMI 34.0-34.9,adult Z68.34 [facility] [address] [place] [id number] [place] [address] 18635- 7951 Nov, Generalized anxiety disorder F41.1 [facility] [address] [place] [id number] [place] [address] 44472- 9033 Nov, [facility] [address] [place] [id number] [place] [address] 14153- 0533 Nov, [facility] [address] 73268- 1692 Nov, Skin ulcer, limited to breakdown of skin L98.491 [facility] [address] [place] [id number] [place] [address] 26644- 7555 Oct, [facility] [address] [place] [id number] [place] [address] 44614- 1727 Oct, Insulin long-term use Z79.4 [facility] [address] [place] [id number] [place] [address] 27266- 7645 Oct, [facility] [address] [place] [id number] [place] [address] 92986- 1407 Oct, Insulin long-term use Z79.4 [facility] [address] [place] [id number] [place] [address] 92495- 6608 Oct, [facility] [address] [place] [id number] [place] [address] 15959- 3112 Oct, Encounter for immunization Z23 [facility] [address] [place] [id number] [place] [address] 28855- 8759 Oct, [facility] [address] [place] [id number] [place] [address] 21763- 5504 Sep, [facility] [address] [place] [id number] [place] [address] 68620- 8176 Sep, Acute nasopharyngitis J00 ; Routine adult health maintenance Z00.00 and Encounter for school examination Z02.0 [facility] [address] [place] [id number] [place] [address] 29294- 6486 Sep, [facility] [address] [place] [id number] [place] [address] 09922- 3120 Sep, Diabetes type 1, controlled E10.9 [facility] [address] [place] [id number] [place] [address] 05667- 1358 Aug, [facility] [address] [place] [id number] [place] [address] 52611- 4393 Aug, [facility] [address] [place] [id number] [place] [address] 29792- 4841 Aug, [facility] [address] [place] [id number] [place] [address] 75937- 5439 Aug, [facility] [address] [place] [id number] [place] [address] 15715- 3874 Aug, [facility] [address] [place] [id number] [place] [address] 49032- 7408 Aug, [facility] [address] [place] [address] [id number] [address]- 2212 Jul, [facility] [id number] [place] [address] 64362- 4034 Jul, [facility] [address] [address]- 5192 27 Jun, 2016 [facility] [address] [place] [id number] [place] [address] 70686- 6504 26 Jun, 2016 [facility] [address] [place] [id number] [place] [address] 95580- 0237 12 Jun, 2016 [facility] [address], [place] [address]- 5994 07 Jun, 2016 [facility] [address] [facility] [id number] [place] [address]- 5109 Jun, Diabetes type 1, controlled E10.9 [facility] [address] [facility] [id number] [place] [address]- 9479 Jun, [facility] [address] [facility] [id number] [place] [address]- 9805 Jun, [facility] [address] [facility] [id number] [place] [address]- 3503 May, [facility] [address] [facility] [id number] [place] [address]- 6256 May, [facility] [address] [facility] [id number] [place] [address]- 0087 May, [facility] [address] [place] [address]- 9857 May, [facility] [address] [address]- 6300 May, [facility] [address] [address]- 9464 Apr, BMI 39.0-39.9,adult Z68.39 [facility] [address] [address]- 7450 Jan, [facility] [address] [address]- 5633 Jan, Diabetes type 1, controlled E10.9 [facility] [address] [facility] [id number] [address]- 7314 Dec, [facility] [address] [address]- 1269 Dec, Diabetes type 1, controlled E10.9 [facility] [address] [place] [id number] [address]- 4734 Nov, [facility] [address] [address]- 7036 Nov, Hypertension I10 [facility] [address] [facility] [id number] [address]- 8336 Nov, Hypertension I10 [facility] [address] [facility] [id number] [address] 9429 Oct, Diabetes type 1, controlled E10.9 ; Insulin long-term use Z79.4 ; Non-ischemic cardiomyopathy I42.9 ; Hypertension I10 and FOREIGN ( obstructive sleep apnea) G47.33 [place] [address] [facility] [id number] [address]- 4349 Oct, Encounter for PPD test Z11.1 IMMUNIZATIONS Vaccine Route Administration Date Status DEPO MEDROL 80 MG/ML IM Intramuscular Jul 28, 2017 Administered SOCIAL HISTORY Never Assessed REASON FOR VISIT headache every day for about 1 month JStrasserRN PLAN OF CARE VITAL SIGNS Height 73 in 2017-07-28 Weight 283.4 lbs 2017-07-28 Temperature 97.5 degrees Fahrenheit 2017-07-28 Heart Rate 80 bpm 2017-07-28 Respiratory Rate 20 2017-07-28 BMI 37.39 kg/m2 2017-07-28 Blood pressure systolic 120 mmHg 2017-07-28 Blood pressure diastolic 74 mmHg 2017-07-28 MEDICATIONS Medication Instructions Dosage Frequency Start Date End Date Duration Status Levemir 100 UNIT/ML Subcutaneous 2 times a day 44 units AM, 34 units PM 12h Jan, Active Furosemide 80 MG Orally twice a day 1 tablet 12h 30 Active Paroxetine HCl 30 MG TAKE ONE TABLET BY MOUTH IN THE MORNING 30 Active NovoLog 100 UNIT/ML Subcutaneous 3 times a day per sliding scale 8h Jun Active Cetirizine HCl 10 mg Orally Once a day 1 tablet 24h 04 Jul, 2017 Nov, 30 day(s) Active Vardenafil HCl 20 mg Orally Once a day PRN 1 tablet as needed May, Active Atorvastatin Calcium 20 MG Orally Once a day 1 tablet 24h 30 Active Losartan Potassium 100 MG TAKE ONE TABLET BY MOUTH ONCE DAILY 30 Active Dk Contour Test ... subcutaneously 3 times a day 1 strip 8h Jun, Active Spironolactone 25 MG Orally Once a day 1 tablet 24h 30 Active Carvedilol 25 MG Orally 2 times a day 1 tablet 12h 30 Active RESULTS No Results PROCEDURES Procedure Date Ordered Result Body Site DEPO MEDROL 80 MG/ML Jul 28, 2017 THER/PROPH/DIAG INJ, SC/IM Jul 28, 2017 INSTRUCTIONS MEDICATIONS ADMINISTERED No Known Medications MEDICAL (GENERAL) HISTORY Type Description Date Medical History Diabetes Medical History Congestive heart disease Medical History sleep apnea-has CPAP Medical History seasonal allergies Surgical History pacemaker/defibrillator Surgical History carpal tunnel release Hospitalization History complications post op Hospitalization History 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
--- OUTSIDE RECORDS SUMMARY | 2018-03-26 12:37 | XMS REPORT ---
Author Author GRISEL RIVERA [facility] Address [address] [place] [address] Care Team Providers Care Business Planner Name Role Phone GRISEL RIVERA Unavailable PROBLEMS Type Condition ICD9-CM Code IWM10-RC Code Onset Dates Condition Status SNOMED Code Problem Insulin long-term use Z79.4 Active 765999968 Problem Hypertension I10 Active 39177991 Problem Diabetes E11.9 Active 43444379 Problem Seasonal allergies J30.2 Active 479274353 Problem BMI 34.0-34.9,adult Z68.34 Active 789703423 Problem FOREIGN (obstructive sleep apnea) G47.33 Active 08922477 Problem Non-ischemic cardiomyopathy I42.9 Active 59237050 Problem Generalized anxiety disorder F41.1 Active 72344071 Problem Skin ulcer, limited to breakdown of skin L98.491 Active 42342926 ALLERGIES No Information ENCOUNTERS Encounter Location Date Diagnosis [place] [id number] [place] [address] 61082- 1573 February, Seasonal allergies J30.2 ; Generalized anxiety disorder F41.1 ; Diabetes E11.9 and Insulin long-term use Z79.4 [place] [id number], [place] [address] Jan, [facility] [address] [place] [id number] [place] [address] 67641- 6568 Jan, Medicare annual wellness visit, initial Z00.00 ; Non- ischemic cardiomyopathy I42.9 ; Diabetes type 1, controlled E10.9 ; Generalized anxiety disorder F41.1 ; Hypertension I10 and BMI 34.0-34.9,adult Z68.34 [place] [address], [place] [address] Dec, [place] [address] [place] [address] 5843 Dec, [facility] [id number] [place] [address] 05952- 9668 Dec, [facility] [id number] [place] [address] 05381- 8266 Dec, Pilonidal cyst with abscess L05.01 [facility] [address] [address]- 0218 Dec, [facility] [id number] [place] [address] 83499- 3562 Nov, [facility] [id number] [place] [address] 31219- 3543 Nov, [facility] [id number] [place] [address] 86120- 8508 Nov, [facility] [id number] [place] [address] 47489 -4494 Nov, [facility] [id number] [place] [address] 07001- 6152 Oct, Pilonidal cyst with abscess L05.01 [facility] [id number] [place] [address] 95559- 9686 Oct, BMI 37.0-37.9, adult Z68.37 [facility] [id number] [place] [address] 04775- 5337 Oct, [facility] [id number] [place] [address] 41381- 1962 Oct, [facility] [id number] [place] [address] 89515- 6058 Sep, Sebaceous cyst L72.3 [facility] [id number] [place] [address] 60444- 4355 Sep, [facility] [id number], [place] [address] 8[address] Sep, [facility] [id number] [place] [address] 22984- 2973 Sep, Local infection of the skin and subcutaneous tissue, unspecified L08.9 [facility] [id number] [place] [address] 02529- 7246 Sep, [facility] [address] [id number] [place] [address] 03002- 9527 Sep, [place] [id number] [place] [address] 56238- 0650 Aug, [facility] [place] [id number] [place] [address] 94955 -2351 Aug, Cough R05 and Community acquired pneumonia of left lower lobe of lung J18.1 [place] [id number] [place] [address] 96366- 8133 Aug, [place] [id number] [place] [address] 75669- 7061 Jul, Diabetes type 1, controlled E10.9 ; Encounter for immunization Z23 and FOREIGN (obstructive sleep apnea) G47.33 [place] [address], [place] [address] 9[address] Jul, [facility] [id number] [address] Jul [place] [id number] [place] [address] 39812- 9911 Jul, Diabetes type 1, controlled E10.9 [place] [id number] [place] [address] 69264- 9253 Jul, [place] [id number] [place] [address] 50012- 5628 Jul, [facility] [id number], [place] [address] Jul, Acute seasonal allergic rhinitis due to other allergen J30.2 [facility] [id number] [place] [address] 14216- 1623 Jun, [facility] [id number] [place] [address] 78506- 3161 25 Jun, 2017 [facility] [id number] [place] [address] 57126- 9790 Jun, [facility] [address] 56552- 8211 May, [facility] [id number] [place] [address] 47224- 0467 Apr, [facility] [address] [address] [id number] [place] [address] 34429- 8919 Apr, [facility] [id number] [place] [address] 59049- 6131 Mar, Renal insufficiency N28.9 [facility] [id number] [place] [address] 87694- 2795 Mar, [facility] [address] [id number] [place] [address] 88064- 7331 Mar, Other specified hypotension I95.89 [facility] [id number] [place] [address] 15219- 2877 Mar, [facility] [id number] [place] [address] 40847- 7010 February, [facility] [id number] [place] [address] 71881- 7351 February, Allergy, initial encounter T78.40XA [facility] [address] 07665- 0721 February, Diabetes type 1, controlled E10.9 [facility] [address] [id number] [place] [address] 98053- 8563 February, [facility] [address] [place] [address] 4183 February, [facility] [id number] [place] [address] 37206- 9681 Dec, [facility] [id number] [place] [address] 94617- 0809 Dec, BMI 34.0-34.9,adult Z68.34 [facility] [id number] [place] [address] 15126- 5870 Nov, Generalized anxiety disorder F41.1 [facility] [address] [id number] [place] [address] 92714- 0276 Nov, [facility] [id number] [place] [address] 30457- 9874 Nov, [facility] [id number] [place] [address] 02737- 7206 Nov, Skin ulcer, limited to breakdown of skin L98.491 [facility] [id number] [place] [address] 79477- 2247 Oct, [facility] [id number] [place] [address] 96442- 5866 Oct, Insulin long-term use Z79.4 [facility] [address] [place] [id number] [place] [address] 38177- 8906 Oct, [facility] [id number] [place] [address] 46238- 6806 Oct, Insulin long-term use Z79.4 [facility] [id number] [place] [address] 07391- 0064 Oct, [facility] [id number] [place] [address] 75296- 4564 Oct, Encounter for immunization Z23 [facility] [id number] [place] [address] 43378- 7587 Oct, [facility] [address] [facility] [id number] [address]- 7574 Sep, [facility] [id number] [place] [address] 03674- 0673 Sep, Acute nasopharyngitis J00 ; Routine adult health maintenance Z00.00 and Encounter for school examination Z02.0 [facility] [address] [facility] [id number] [place] [address] 62226- 5131 Sep, [facility] [address] [place] [id number] [place] [address], [place] [address]- 5103 Sep, Diabetes type 1, controlled E10.9 [facility] [id number] [place] [address], [place] [address]- 2045 Aug, [facility] [id number] [place] [address] 53989- 7560 Aug, [facility] [id number] [place] [address], [place] [address]- 9921 Aug, [facility] [id number] [place] [address], [place] [address]- 9419 Aug, [facility] [id number] [place] [address], [place] [address]- 5655 Aug, [facility] [id number], [place] [address]- 2050 Aug, [facility] [id number], [place] [address]- 7235 Jul, [facility] [address] [place] [id number], [place] [address]- 6532 Jul, [facility] [id number] [place] [address] 83364- 3415 27 Jun, 2016 [facility] [address] [facility] [id number], [place] [address]- 4545 26 Jun, 2016 [facility] [id number] [place] [address] 58805- 6255 12 Jun, 2016 [facility] [id number] [place] [address]- 7135 Jun, [facility] [id number] [place] [address]- 6034 Jun, Diabetes type 1, controlled E10.9 [facility] [id number], [place] [address]- 7167 Jun, 2015 [facility] [address], [place] [address]- 8164 Jun, [facility] [id number] [place] [address], [place] [address]- 4315 May, [facility] [id number] [place] [address]- 2454 May, [facility] [id number] [place] [address] 48741- 7860 May, [facility] [id number], [place] [address]- 5754 May, [facility] [id number], [place] [address]- 1800 May, [facility] [address], [place] [address]- 3275 Apr, BMI 39.0-39.9,adult Z68.39 [facility] [id number], [place] [address]- 2753 Jan, [facility] [id number], [place] [address]- 6042 Jan, Diabetes type 1, controlled E10.9 [facility] [address], [place] [address]- 0661 Dec, [facility] [address], [place] [address]- 6354 Dec, Diabetes type 1, controlled E10.9 [facility] [address] [place] [id number], [place] [address]- 4529 17 Nov, 2015 [facility] [address], [place] [address]- 7977 Nov, Hypertension I10 [place] [id number], [place] [address]- 8369 Nov, Hypertension I10 [place] [id number] [place] [address] 67350- 3676 Oct, Diabetes type 1, controlled E10.9 ; Insulin long-term use Z79.4 ; Non-ischemic cardiomyopathy I42.9 ; Hypertension I10 and FOREIGN ( obstructive sleep apnea) G47.33 [place] [address], [place] [address]- 9910 Oct, Encounter for PPD test Z11.1 IMMUNIZATIONS [...]
--- OUTSIDE RECORDS SUMMARY | 2018-03-26 12:37 | XMS REPORT ---
Author Author GRISEL RIVERA [facility] Address [address] [place] [address] Care Team Providers Care Concrete Floor Installer Name Role Phone GRISEL RIVERA Unavailable PROBLEMS Type Condition ICD9-CM Code NSC38-PF Code Onset Dates Condition Status SNOMED Code Problem FOREIGN (obstructive sleep apnea) G47.33 Active 69156055 Problem Insulin long-term use Z79.4 Active 679974790 Problem Diabetes type 1, controlled E10.9 Active 65029484 Problem Non-ischemic cardiomyopathy I42.9 Active 53583582 Problem Acute seasonal allergic rhinitis due to other allergen J30.2 Active 627559098 Problem BMI 34.0-34.9,adult Z68.34 Active 036313950 Problem Hypertension I10 Active 18022339 Problem Diabetes E11.9 Active 43442850 Problem Generalized anxiety disorder F41.1 Active 81606947 Problem Skin ulcer, limited to breakdown of skin L98.491 Active 35459661 ALLERGIES No Information ENCOUNTERS Encounter Location Date Diagnosis [facility] [address] [address] Jan, [facility] [id number] [place] [address] 11653- 6125 Jan, Medicare annual wellness visit, initial Z00.00 ; Non- ischemic cardiomyopathy I42.9 ; Diabetes type 1, controlled E10.9 ; Generalized anxiety disorder F41.1 ; Hypertension I10 and BMI 34.0-34.9,adult Z68.34 [facility] [address] [address]- [address] Dec, [facility] [address] [address]- [address] Dec, [facility] [address] [address]- 4[address] Dec, [facility] [id number] [place] [address] 46198- 6253 Dec, Pilonidal cyst with abscess L05.01 [facility] [id number] [place] [address] 01076- 2419 Dec, [facility] [id number] [place] [address] 60870- 5902 Nov, [facility] [address] 19183- 4837 Nov, [facility] [address] 39336- 4669 Nov, [facility] [id number] [place] [address]11 -9290 Nov, [facility] [address] [address]- 1626 Oct, Pilonidal cyst with abscess L05.01 [facility] [id number] [place] [address] 79465- 3333 Oct, BMI 37.0-37.9, adult Z68.37 [facility] [id number] [place] [address] 71655- 6532 Oct, [facility] [id number] [place] [address] 49780- 3587 Oct, [facility] [id number] [place] [address] 99466- 7339 Sep, Sebaceous cyst L72.3 [facility] [id number] [place] [address] 22040- 4433 Sep, [facility] [id number] [place] [address] 78629- 7798 Sep, [facility] [id number] [place] [address] 16287- 8764 Sep, Local infection of the skin and subcutaneous tissue, unspecified L08.9 [facility] [address] [address] Sep, [facility] [address] [address] 75[address] Sep, [facility] [id number] [place] [address] 71842- 2615 Aug, [facility] [address] [address] Aug, Cough R05 and Community acquired pneumonia of left lower lobe of lung J18.1 [facility] [id number] [place] [address] 05884- 9648 Aug, [facility] [address] [address] 3932 Jul, Diabetes type 1, controlled E10.9 ; Encounter for immunization Z23 and FOREIGN (obstructive sleep apnea) G47.33 [facility] [address] [address] Jul, [facility] [address] [id number] [place] [address] Jul [facility] [id number] [address]- 1074 Jul, Diabetes type 1, controlled E10.9 [facility] [address] [address]- 9095 Jul, [facility] [address] [facility] [id number] [address]12 Jul, [facility] [address] [address] Jul, Acute seasonal allergic rhinitis due to other allergen J30.2 [facility] [address] [address] 1773 Jun, [facility] [address] [address]- 0079 Jun, [facility] [id number] [place] [address] 84719- 8086 Jun, [facility] [address] [address] 8977 May, [facility] [id number] [place] [address] 50609- 9011 Apr, [facility] [id number] [place] [address] 03870- 4466 Apr, [facility] [id number] [place] [address], [place] [address]- 7507 Mar, Renal insufficiency N28.9 [facility] [id number] [place] [address], [place] [address]- 8823 Mar, [facility] [id number] [place] [address] 25162- 3076 Mar, Other specified hypotension I95.89 [facility] [id number] [place] [address] 05624- 7751 Mar, [facility] [address] [place] [address] 41019- 1565 February, [facility] [address], [place] [address] 97[address] February, Allergy, initial encounter T78.40XA [facility] [address], [place] [address] 4[address] February, Diabetes type 1, controlled E10.9 [facility] [address] [address]- 4437 February, [facility] [address] [address] February, [facility] [id number] [place] [address] 43248- 3894 Dec, [facility] [id number] [place] [address] 68175- 2776 Dec, BMI 34.0-34.9,adult Z68.34 [facility] [id number] [place] [address] 66556- 2924 Nov, Generalized anxiety disorder F41.1 [facility] [address] 09477- 3017 Nov, [facility] [id number] [place] [address] 95613- 1241 Nov, [facility] [address] 91534- 5637 Nov, Skin ulcer, limited to breakdown of skin L98.491 [place] [id number] [place] [address] 65606- 3364 Oct, [facility] [id number] [place] [address] 31689- 9063 Oct, Insulin long-term use Z79.4 [facility] [address] 43764- 7099 Oct, [facility] [id number] [place] [address] 83530- 9936 Oct, Insulin long-term use Z79.4 [facility] [id number] [place] [address] 63911- 3848 Oct, [facility] [id number] [place] [address] 48550- 1686 Oct, Encounter for immunization Z23 [facility] [address] 35360- 8672 Oct, [facility] [id number] [place] [address] 41746- 0415 Sep, [facility] [address] [place] [address]- 4231 Sep, Acute nasopharyngitis J00 ; Routine adult health maintenance Z00.00 and Encounter for school examination Z02.0 [facility] [address] [address]- 8648 Sep, [facility] [address], [place] [address]- 6628 Sep, Diabetes type 1, controlled E10.9 [facility] [id number] [place] [address]- 3105 Aug, [facility] [id number] [place] [address], [place] [address]- 2951 Aug, [facility] [id number] [place] [address] 90086- 1304 Aug, [facility] [id number] [place] [address] 51874- 1761 Aug, [facility] [address] [address]- 5094 18 Aug, 2016 [facility] [id number] [place] [address] 96348- 8985 17 Aug, 2016 [facility] [address], [place] [address]- 4765 Jul, [facility] [address] [address]- 7103 Jul, [facility] [address], [place] [address]- 4275 27 Jun, 2016 [facility] [address], [place] [address]- 5044 26 Jun, 2016 [facility] [address], [place] [address]- 1223 12 Jun, 2016 [facility] [address], [place] [address]- 2776 07 Jun, 2016 [facility] [address] [facility] [id number] [place] [address]- 4141 Jun, Diabetes type 1, controlled E10.9 [facility] [address] [facility] [id number] [place] [address]- 2490 Jun, [facility] [address] [place] [address]- 5871 Jun, [facility] [address] [facility] [id number] [place] [address], [place] [address]- 7268 May, [facility] [address] [facility] [id number] [place] [address]- 0097 May, [facility] [id number] [place] [address], [place] [address]- 2828 May, [facility] [address] [place] [address]- 0748 May, [facility] [address] [address]- 2550 May, [facility] [address], [place] [address]- 7672 Apr, BMI 39.0-39.9,adult Z68.39 [facility] [address], [place] [address]- 1833 Jan, [facility] [address], [place] [address]- 0449 Jan, Diabetes type 1, controlled E10.9 [facility] [address], [place] [address]- 9342 Dec, [facility] [address] [address]- 8511 Dec, Diabetes type 1, controlled E10.9 [facility] [id number] [place] [address]- 2691 Nov, [facility] [id number] [place] [address], [place]- 1721 04 Nov, 2015 Hypertension I10 [facility] [address] [facility] [id number] 3561 Nov, Hypertension I10 [facility] [id number] [address] 3585 18 Oct, 2015 Diabetes type 1, controlled E10.9 ; Insulin long-term use Z79.4 ; Non-ischemic cardiomyopathy I42.9 ; Hypertension I10 and FOREIGN ( obstructive sleep apnea) G47.33 [place] [address] [facility] [id number] [address]- 8041 Oct, Encounter for PPD test Z11.1 IMMUNIZATIONS No Known Immunizations SOCIAL HISTORY Never Assessed REASON FOR VISIT Insulin pump start PLAN OF CARE VITAL SIGNS MEDICATIONS Medication Instructions Dosage Frequency Start Date End Date Duration Status NovoLog 100 UNIT/ML per insulin pump DXE 10.9 per pump 90 units daily Jun, Active Dk Contour Next Test - DX- E10.9 8 times daily- on insulin pump test blood sugar Jul, Active RESULTS No Results PROCEDURES No Known procedures [...]
--- OUTSIDE RECORDS SUMMARY | 2018-03-26 12:38 | XMS REPORT ---
Author Author GRISEL RIVERA Organization [facility] Address [address] [place] [address] Care Team Providers Care Acid Tester Name Role Phone GRISEL RIVERA Unavailable PROBLEMS Type Condition ICD9-CM Code [id number] Code Onset Dates Condition Status SNOMED Code Problem FOREIGN (obstructive sleep apnea) G47.33 Active 28642380 Problem Insulin long-term use Z79.4 Active 108128591 Problem Diabetes type 1, controlled E10.9 Active 27211766 Problem Non-ischemic cardiomyopathy I42.9 Active 96196395 Problem Acute seasonal allergic rhinitis due to other allergen J30.2 Active 996180953 Problem BMI 34.0-34.9,adult Z68.34 Active 676609819 Problem Hypertension I10 Active 98682378 Problem Diabetes E11.9 Active 97446092 Problem Generalized anxiety disorder F41.1 Active 16147562 Problem Skin ulcer, limited to breakdown of skin L98.491 Active 62509519 ALLERGIES No Information ENCOUNTERS Encounter Location Date Diagnosis [place] [id number] [place] [address] 64111- 0998 Jan, Medicare annual wellness visit, initial Z00.00 [place] [id number] [place] [address] 23354- 4304 Dec, [facility] [id number] [place] [address] 32370- 4425 Dec, [place] [id number] [place] [address] 35760- 8909 Dec, [place] [id number] [place] [address] 03134- 6459 Dec, Pilonidal cyst with abscess L05.01 [place] [address] 62595- 0792 Dec, [facility] [address] [address] 9689 Nov, [facility] [id number] [place] [address] 55250- 5252 Nov, [facility] [id number] [place] [address] 85956- 6120 Nov, [facility] [id number] [place] [address] 84820 -8478 Nov, [facility] [id number] [place] [address] 66905- 0492 Oct, Pilonidal cyst with abscess L05.01 [facility] [id number] [place] [address] 14477- 6994 Oct, BMI 37.0-37.9, adult Z68.37 [facility] [id number] [place] [address] 81789- 7861 Oct, [facility] [id number] [place] [address] 34105- 6752 Oct, [facility] [id number] [place] [address] 36889- 3443 Sep, Sebaceous cyst L72.3 [facility] [id number] [place] [address] 49967- 8007 Sep, [facility] [id number] [place] [address] 91323- 2401 Sep, [facility] [id number] [place] [address] 65689- 0362 Sep, Local infection of the skin and subcutaneous tissue, unspecified L08.9 [facility] [id number] [place] [address] 80337- 9193 Sep, [facility] [id number] [place] [address] 33105- 6638 Sep, [facility] [id number] [place] [address] 45817- 8584 Aug, [facility] [id number] [place] [address] 27648 -1296 Aug, Cough R05 and Community acquired pneumonia of left lower lobe of lung J18.1 [facility] [id number] [place] [address] 51464- 4499 Aug, [facility] [id number] [place] [address] 46087- 6879 Jul, Diabetes type 1, controlled E10.9 ; Encounter for immunization Z23 and FOREIGN (obstructive sleep apnea) G47.33 [facility] [id number] [place] [address] 28566- 1133 Jul, [address] [id number] [place] [address] Jul [facility] [id number] [place] [address] 38103- 6358 Jul, Diabetes type 1, controlled E10.9 [facility] [id number] [place] [address] 94695- 2156 Jul, [facility] [id number] [place] [address] 94832- 9043 Jul, [facility] [id number] [place] [address] 85602 -2643 Jul, Acute seasonal allergic rhinitis due to other allergen J30.2 [facility] [id number] [place] [address] 30566- 5274 Jun, [place] [id number] [place] [address] 83823- 8998 Jun, [facility] [id number] [place] [address] 57446- 0337 14 Jun, 2017 [facility] [address] [place] [address]- 7136 May, [facility] [id number] [place] [address] 89655- 7094 Apr, [facility] [id number] [place] [address] 13487- 4363 Apr, [facility] [id number] [place] [address] 69395- 4607 Mar, Renal insufficiency N28.9 [facility] [address] 36732- 1170 Mar, [facility] [address] 69752- 6950 Mar, Other specified hypotension I95.89 [facility] [id number] [place] [address] 68898- 1398 Mar, [facility] [id number] [place] [address] 84448- 5991 February, [facility] [id number] [place] [address] 97325- 4761 February, Allergy, initial encounter T78.40XA [facility] [id number] [place] [address] 82538- 8144 February, Diabetes type 1, controlled E10.9 [facility] [id number] [place] [address] 43705- 6776 February, [facility] [id number] [place] [address] 29887- 7774 February, [facility] [id number] [place] [address] 52924- 5373 Dec, [facility] [id number] [place] [address] 83236- 7024 Dec, BMI 34.0-34.9,adult Z68.34 [facility] [address] 23526- 3499 Nov, Generalized anxiety disorder F41.1 [facility] [address] [place] [address] 58227- 8132 07 Nov, 2016 [facility] [id number] [place] [address] 433055- 9863 Nov, [facility] [id number] [place] [address] 07577- 6195 Nov, Skin ulcer, limited to breakdown of skin L98.491 [facility] [id number] [place] [address] 45843- 3554 Oct, [facility] [id number] [place] [address] 09210- 5821 Oct, Insulin long-term use Z79.4 [facility] [id number] [place] [address] 15481- 6487 Oct, [facility] [id number] [place] [address] 90603- 0210 Oct, Insulin long-term use Z79.4 [facility] [id number] [place] [address] 77018- 7419 Oct, [facility] [id number] [place] [address] 73324- 2649 Oct, Encounter for immunization Z23 [facility] [id number] [place] [address] 04289- 1069 Oct, [facility] [id number] [place] [address] 92294- 9770 Sep, [facility] [id number] [place] [address] 86864- 8308 Sep, Acute nasopharyngitis J00 ; Routine adult health maintenance Z00.00 and Encounter for school examination Z02.0 [facility] [id number] [place] [address] 39527- 3133 Sep, [place] [address] [id number] [place] [address]- 8624 Sep, Diabetes type 1, controlled E10.9 [facility] [address] [id number] [place] [address]- 9255 30 Aug, 2016 [facility] [address] [id number] [place] [address]- 1813 Aug, [facility] [address] [id number] [place] [address]- 5098 Aug, [facility] [address] [id number] [place] [address]- 3439 Aug, [facility] [address] [id number] [place] [address]- 4213 Aug, [facility] [address] [facility] [id number] [place] [address]- 8129 Aug, [facility] [address] [facility] [id number] [place] [address]- 1530 Jul, [facility] [address] [id number] [place] [address]- 2428 10 Jul, 2016 [facility] [address] [facility] [id number] [place] [address]- 4310 27 Jun, 2015 [facility] [address] [id number] [place] [address]- 4070 26 Sep, 2015 [facility] [address] [id number] [place] [address]- 7110 12 Sep, 2015 [facility] [address] [id number] [place] [address]- 0167 07 Sep, 2015 [facility] [address] [facility] [id number] [place] [address]- 4256 06 Sep, 2016 Diabetes type 1, controlled E10.9 [facility] [address] [id number] [place] [address]- 0881 06 Sep, 2015 [facility] [address], [place] [address]- 7255 Jun, [facility] [address], [place] [address]- 4052 May, [facility] [id number] [place] [address]- 9047 May, [facility] [id number] [place] [address], [place] [address]- 9453 May, [facility] [id number] [place] [address]- 1937 May, [facility] [id number] [place] [address], [place] [address]- 4895 May, [facility] [id number] [place] [address] 31072- 0588 Apr, BMI 39.0-39.9,adult Z68.39 [facility] [address], [place] [address]- 0089 Jan, [facility] [id number] [place] [address] 78787- 7886 Jan, Diabetes type 1, controlled E10.9 [facility] [address], [place] [address]- 7935 Dec, [facility] [address], [place] [address]- 1879 Dec, Diabetes type 1, controlled E10.9 [facility] [address], [place] [address]- 7656 Nov, [facility] [address] [place] [address] 21468- 3426 Nov, Hypertension I10 [facility] [address], [place] [address]- 9438 Nov, Hypertension I10 [facility] [address] [place] [address] 09055- 4024 Oct, Diabetes type 1, controlled E10.9 ; Insulin long-term use Z79.4 ; Non-ischemic cardiomyopathy I42.9 ; Hypertension I10 and FOREIGN ( obstructive sleep apnea) G47.33 [facility] [address] [facility] [id number] [place] [address]- 2726 Oct, Encounter for PPD test Z11.1 IMMUNIZATIONS No Known Immunizations SOCIAL HISTORY Never Assessed REASON FOR VISIT Returned call PLAN OF CARE VITAL SIGNS MEDICATIONS Unknown [...]
--- OUTSIDE RECORDS SUMMARY | 2018-03-26 12:38 | XMS REPORT ---
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 Name Role Phone GRISEL RIVERA Unavailable PROBLEMS Type Condition ICD9-CM Code XDC08-PO Code Onset Dates Condition Status SNOMED Code Problem Insulin long-term use Z79.4 Active 379572294 Problem Hypertension I10 Active 50180419 Problem Diabetes E11.9 Active 45654354 Problem Seasonal allergies J30.2 Active 611466522 Problem BMI 34.0-34.9,adult Z68.34 Active 512569595 Problem FOREIGN (obstructive sleep apnea) G47.33 Active 05569047 Problem Non-ischemic cardiomyopathy I42.9 Active 21974868 Problem Generalized anxiety disorder F41.1 Active 03977912 Problem Skin ulcer, limited to breakdown of skin L98.491 Active 62849089 ALLERGIES No Known Allergies ENCOUNTERS Encounter Location Date Diagnosis [place] [id number] [place] [address] 58634- 4959 February, Seasonal allergies J30.2 ; Generalized anxiety disorder F41.1 ; Diabetes E11.9 and Insulin long-term use Z79.4 [place] [id number] [address] Jan, [facility] [address] [place] [id number] [place] [address] 87623- 0113 Jan, Medicare annual wellness visit, initial Z00.00 ; Non- ischemic cardiomyopathy I42.9 ; Diabetes type 1, controlled E10.9 ; Generalized anxiety disorder F41.1 ; Hypertension I10 and BMI 34.0-34.9,adult Z68.34 [facility] [address], [place] [address] Dec, [place] [id number] [place] [address] 61033- 8647 Dec, [facility] [address] [id number] [place] [address] 04823- 6048 Dec, [facility] [id number] [place] [address] 41368- 6909 Dec, Pilonidal cyst with abscess L05.01 [facility] [address] [address]- [address] Dec, [facility] [address] [id number] [place] [address] 60606- 5694 Nov, [facility] [id number] [place] [address] 13555- 1307 Nov, [facility] [id number] [place] [address] 85397- 5055 Nov, [facility] [id number] [place] [address] 64189 -6374 Nov, [facility] [id number] [place] [address] 41338- 5572 Oct, Pilonidal cyst with abscess L05.01 [facility] [id number] [place] [address] 33735- 2783 Oct, BMI 37.0-37.9, adult Z68.37 [facility] [id number] [place] [address] 66900- 0602 Oct, [facility] [id number] [place] [address] 36878- 9292 Oct, [facility] [id number] [place] [address] 37584- 0517 Sep, Sebaceous cyst L72.3 [facility] [id number] [place] [address] 13576- 1302 Sep, [facility] [id number] [address] 95[address] Sep, [facility] [id number] [place] [address] 72164- 3941 Sep, Local infection of the skin and subcutaneous tissue, unspecified L08.9 [facility] [id number] [place] [address] 39777- 0857 Sep, [facility] [address] [place] [id number] [place] [address] 42550- 8893 Sep, [facility] [id number] [place] [address] 27234- 8468 Aug, [facility] [place] [address] [place] [address] [id number] [place] [address] [phone] -[phone] Aug, Cough R05 and Community acquired pneumonia of left lower lobe of lung J18.1 [place] [address] [place] [id number] [place] [address] 32473- 1148 Aug, [place] [id number] [place] [address] 95771- 6623 Jul, Diabetes type 1, controlled E10.9 ; Encounter for immunization Z23 and FOREIGN (obstructive sleep apnea) G47.33 [place] [address], [place] [address] Jul, [facility] [id number] [place] [address] Jul [place] [id number] [place] [address] 67268- 3302 Jul, Diabetes type 1, controlled E10.9 [place] [id number] [place] [address] 74576- 2767 Jul, [place] [id number] [place] [address] 39619- 3978 Jul, [facility] [id number] [place] [address] 37965 -5391 Jul, Acute seasonal allergic rhinitis due to other allergen J30.2 [facility] [id number] [place] [address] 66575- 9571 26 Jun, 2017 [facility] [address] [place] [id number] [place] [address] 15958- 6403 25 Jun, 2017 [facility] [id number] [place] [address] 21008- 2558 Jun, [facility] [id number] [place] [address] 31561- 5820 May, [facility] [address] [place] [id number] [place] [address] 51741- 1494 Apr, [facility] [address] [place] [id number] [place] [address] 16018- 9841 Apr, [facility] [address] [place] [id number] [place] [address] 07499- 9895 Mar, Renal insufficiency N28.9 [facility] [id number] [place] [address] 12327- 6420 Mar, [facility] [address] [id number] [place] [address] 19058- 3041 Mar, Other specified hypotension I95.89 [facility] [address] [place] [id number] [place] [address] 76320- 3891 Mar, [facility] [id number] [place] [address] 02997- 2832 February, [facility] [id number] [place] [address] 81385- 8156 February, Allergy, initial encounter T78.40XA [facility] [id number] [place] [address] 85612- 1101 February, Diabetes type 1, controlled E10.9 [facility] [address] [place] [id number] [place] [address] 81599- 4545 February, [facility] [address] [place] [address] 5008 February, [facility] [id number] [place] [address] 79201- 0913 Dec, [facility] [id number] [place] [address] 44817- 3874 Dec, BMI 34.0-34.9,adult Z68.34 [facility] [id number] [place] [address] 18899- 5204 Nov, Generalized anxiety disorder F41.1 [facility] [address] [id number] [place] [address] 74195- 5078 Nov, [facility] [id number] [place] [address] 67826- 9833 Nov, [facility] [id number] [place] [address] 11894- 2953 Nov, Skin ulcer, limited to breakdown of skin L98.491 [facility] [address] [place] [id number] [place] [address] 46994- 2696 Oct, [facility] [address] [id number] [place] [address] 81339- 7427 Oct, Insulin long-term use Z79.4 [facility] [address] [place] [id number] [place] [address] 67344- 6727 Oct, [facility] [id number] [place] [address] 12327- 3450 Oct, Insulin long-term use Z79.4 [facility] [id number] [place] [address] 42800- 8870 Oct, [facility] [address] [id number] [place] [address] 11631- 6058 Oct, Encounter for immunization Z23 [facility] [id number] [place] [address] 21279- 3670 Oct, [facility] [address] [facility] [id number] [address]- 9130 Sep, [facility] [address] [id number] [place] [address] 34240- 7624 Sep, Acute nasopharyngitis J00 ; Routine adult health maintenance Z00.00 and Encounter for school examination Z02.0 [facility] [address] [facility] [id number] [place] [address] 50812- 0172 Sep, [facility] [address] [facility] [id number] [place] [address] 25644- 8103 Sep, Diabetes type 1, controlled E10.9 [facility] [address] [id number] [place] [address], [place] [address]- 9430 Aug, [facility] [id number] [place] [address], [place] [address]- 5099 Aug, [facility] [address] [id number] [place] [address] 62577- 5110 Aug, [facility] [id number] [place] [address], [place] [address]- 3492 Aug, [facility] [id number] [place] [address] 61505- 5233 Aug, [facility] [address], [place] [address]- 9777 Aug, [facility] [address], [place] [address]- 5237 Jul, [facility] [address] [place] [id number], [place] [address]- 4174 Jul, [facility] [id number] [place] [address] 20436- 5689 27 Jun, 2016 [facility] [address] [facility] [id number], [place] [address]- 9162 26 Jun, 2016 [facility] [id number] [place] [address] 11417- 9444 12 Jun, 2016 [facility] [address] [facility] [id number] [place] [address]- 6764 07 Jun, 2016 [facility] [address] [facility] [id number] [place] [address]- 4102 Jun, Diabetes type 1, controlled E10.9 [facility] [address], [place] [address]- 8378 Jun, 2015 [facility] [address] [facility] [id number], [place] [address]- 1146 Jun, [facility] [id number] [place] [address] 62780- 4440 May, [facility] [address], [place] [address]- 2279 May, [facility] [address] [place] [id number] [place] [address] 94967- 5465 May, [facility] [address], [place] [address]- 2881 May, [facility] [address], [place] [address]- 6966 May, [facility] [address], [place] [address]- 8833 Apr, BMI 39.0-39.9,adult Z68.39 [facility] [address], [place] [address]- 3744 Jan, [facility] [address], [place] [address]- 3860 Jan, Diabetes type 1, controlled E10.9 [facility] [address], [place] [address]- 1757 Dec, [facility] [address], [place] [address]- 7885 Dec, Diabetes type 1, controlled E10.9 [place] [address] [place] [id number], [place] [address]- 0818 Nov, [place] [address], [place] [address]- 9633 Nov, Hypertension I10 [place] [address], [place] [address]- 9183 Nov, Hypertension I10 [place] [address] [place] [id number] [place] [address] 85617- 0405 Oct, Diabetes type 1, controlled E10.9 ; Insulin long-term use Z79.4 ; Non-ischemic cardiomyopathy I42.9 ; Hypertension I10 and FOREIGN ( obstructive sleep apnea) G47.33 [place] [address], [place] [address]- 9820 Oct, Encounter for PPD test Z11.1 IMMUNIZATIONS Vaccine Route Administration Date Status FLUARIX QUAD (3 AND UP) 2017 IM Intramuscular Aug 16, 2017 Administered SOCIAL HISTORY Never Assessed REASON FOR VISIT insulin fu. Follow up from starting insulin pump. bs this am 180. Has had issues with injection site coming out so bs were high for a few weeks. Khris RN PLAN OF CARE Activity Details Follow Up 3 Months Reason: VITAL SIGNS Height 73 in 2017-08-16 Weight 279.8 lbs 2017-08-16 Temperature 98.6 degrees Fahrenheit 2017-08-16 Heart Rate 80 bpm 2017-08-16 Respiratory Rate 20 2017-08-16 BMI 36.91 kg/m2 2017-08-16 Blood pressure systolic 128 mmHg 2017-08-16 Blood pressure diastolic 74 mmHg 2017-08-16 MEDICATIONS Medication Instructions Dosage Frequency Start Date End Date Duration Status Dk Contour Next Test - DX- E10.9 8 times daily- on insulin pump test blood sugar Jul, Active Furosemide 80 MG Orally twice a day 1 tablet 12h 30 Active Glucometer 1 glucometer one touch Jul, Active Vardenafil HCl 20 mg Orally Once a day PRN 1 tablet as needed May, Active Dk Contour Test ... subcutaneously 3 times a day 1 strip 8h Jun, Active Spironolactone 25 MG Orally Once a day 1 tablet 24h 30 Active Cetirizine HCl 10 mg Orally Once a day 1 tablet 24h 04 Jul, 2017 Nov, 30 day(s) Active NovoLog 100 UNIT/ML per insulin pump DXE 10.9 per pump 90 units daily Jun, Active Paroxetine HCl 30 MG TAKE ONE TABLET BY MOUTH IN THE MORNING 30 Active Losartan Potassium 100 MG TAKE ONE TABLET BY MOUTH ONCE DAILY 30 Active Atorvastatin Calcium 20 MG Orally Once a day 1 tablet 24h 30 Active Blood Glucose Test Strip One Touch subcutaneously 4 times a day to test blood sugar 6h Jul, Active Carvedilol 25 MG Orally 2 times a day 1 tablet 12h 30 Active Cyanocobalamin 1000 MCG/ML 1 Active RESULTS Name Result Date Reference Range A1C (IN HOUSE) 2017-08-16 A1C IN HOUSE 8.0 4.3 - 5.6 % Previous A1c 7.3 Lot [id number] Exp date 04/2019 PROCEDURES Procedure Date Ordered Result Body Site GLYCATED HEMOGLOBIN TEST Aug 16, 2017 FLUARIX QUAD (3 AND UP) 2016Aug 16, 2017 SINGLE IMMUNIZATION ADMIN Aug 16, 2017 INSTRUCTIONS MEDICATIONS ADMINISTERED No Known Medications [...]
--- OUTSIDE RECORDS SUMMARY | 2018-03-26 12:39 | XMS REPORT | Continuity of Care Document ---
Author Author [facility] Organization [facility] Address Unknown Phone Unavailable Allergies Active Description Code Type Severity Reaction Onset Reported/Identified Relationship to Patient Clinical Status Yes No Known Allergies [id number] Drug Allergy Unknown N/A 02/24/2018 Medications There is no data. Problems Date Dx Coded Attending Type Code Diagnosis Diagnosed By 02/03/2016 HENRIQUE MOORE MD, FACC FACP CCDS Ot E10.9 02/03/2016 HENRIQUE MOORE MD, FACC FACP CCDS Ot I42.8 02/20/2016 HENRIQUE MOORE MD, FACC FACP CCDS Ot E10.9 TYPE 1 DIABETES MELLITUS WITHOUT COMPLIC 02/20/2016 HENRIQUE MOORE MD, FACC FACP CCDS Ot I42.8 OTHER CARDIOMYOPATHIES 08/11/2016 HENRIQUE MOORE MD, FACC FACP CCDS Ot E10.9 TYPE 1 DIABETES MELLITUS WITHOUT COMPLIC 08/11/2016 HENRIQUE MOORE MD, FACC FACP CCDS Ot I42.8 OTHER CARDIOMYOPATHIES 08/11/2016 HENRIQUE MOORE MD, FACC FACP CCDS Ot E10.9 TYPE 1 DIABETES MELLITUS WITHOUT COMPLIC 08/11/2016 HENRIQUE MOORE MD, FACC FACP CCDS Ot E78.00 PURE HYPERCHOLESTEROLEMIA, UNSPECIFIED 08/11/2016 HENRIQUE MOORE MD, FACC FACP CCDS Ot G47.33 OBSTRUCTIVE SLEEP APNEA (ADULT) (PEDIATR 08/11/2016 HENRIQUE MOORE MD, FACC FACP CCDS Ot I42.9 CARDIOMYOPATHY, UNSPECIFIED 08/11/2016 HENRIQUE MOORE MD, FACC FACP CCDS Ot I50.22 CHRONIC SYSTOLIC (CONGESTIVE) HEART FAIL 08/11/2016 HENRIQUE MOORE MD, FACC FACP CCDS Ot Z45.09 ENCOUNTER FOR ADJUSTMENT AND MANAGEMENT 08/11/2016 HENRIQUE MOORE MD, FACCP CCDS Ot Z79.4 ENGINE PILOT (CURRENT) USE OF INSULIN 08/11/2016 HENRIQUE MOORE MD, FACC FACP CCDS Ot Z79.899 OTHER ASSISTED (CURRENT) DRUG THERAPY 08/26/2016 CORBY QUINONEZ MD, Ot A41.9 SEPSIS, UNSPECIFIED ORGANISM 08/26/2016 CORBY QUINONEZ MD Ot E11.9 TYPE 2 DIABETES MELLITUS WITHOUT COMPLIC 08/26/2016 CORBY QUINONEZ MD Ot I25.10 ATHSCL HEART DISEASE OF [place] CORONARY 08/26/2016 CORBY QUINONEZ MD Ot I51.7 CARDIOMEGALY 08/26/2016 CORBY QUINONEZ MD, Ot K04.7 PERIAPICAL ABSCESS WITHOUT SINUS 08/26/2016 CORBY QUINONEZ MD, Ot R41.82 ALTERED MENTAL STATUS, UNSPECIFIED 08/26/2016 CORBY QUINONEZ MD, Ot T82.7XXA INFECT/INFLM REACT D/T OTH CARDI/VASC DE 08/26/2016 CORBY QUINONEZ MD, Ot Z79.4 ENGINE PILOT (CURRENT) USE OF INSULIN 08/26/2016 CORBY QUINONEZ MD Ot Z79.82 ASSISTED (CURRENT) USE OF ASPIRIN 08/26/2016 CORBY QUINONEZ MD Ot Z79.899 OTHER ASSISTED (CURRENT) DRUG THERAPY 08/26/2016 HENRIQUE MOORE MD, FACCP CCDS Ot E10.9 TYPE 1 DIABETES MELLITUS WITHOUT COMPLIC 08/26/2016 HENRIQUE MOORE MD, FACC FACP CCDS Ot E78.00 PURE HYPERCHOLESTEROLEMIA, UNSPECIFIED 08/26/2016 HENRIQUE MOORE MD, FACC FACP CCDS Ot G47.33 OBSTRUCTIVE SLEEP APNEA (ADULT) (PEDIATR 08/26/2016 HENRIQUE MOORE MD, FACC FACP CCDS Ot I42.9 CARDIOMYOPATHY, UNSPECIFIED 08/26/2016 HENRIQUE MOORE MD, FACCP CCDS Ot I50.22 CHRONIC SYSTOLIC (CONGESTIVE) HEART FAIL 08/26/2016 HENRIQUE MOORE MD, FACCP CCDS Ot Z45.09 ENCOUNTER FOR ADJUSTMENT AND MANAGEMENT 08/26/2016 HENRIQUE MOORE MD, FACCP CCDS Ot Z79.4 ENGINE PILOT (CURRENT) USE OF INSULIN 08/26/2016 HENRIQUE MOORE MD, FACCP CCDS Ot Z79.899 OTHER ENGINE PILOT (CURRENT) DRUG THERAPY 08/27/2016 CORBY QUINONEZ MD Ot A41.9 SEPSIS, UNSPECIFIED ORGANISM 08/27/2016 CORBY QUINONEZ MD Ot E11.9 TYPE 2 DIABETES MELLITUS WITHOUT COMPLIC 08/27/2016 CORBY QUINONEZ MD, Ot I25.10 ATHSCL HEART DISEASE OF [place] CORONARY 08/27/2016 CORBY QUINONEZ MD Ot I51.7 CARDIOMEGALY 08/27/2016 CORBY QUINONEZ MD Ot K04.7 PERIAPICAL ABSCESS WITHOUT SINUS 08/27/2016 CORBY QUINONEZ MD Ot R41.82 ALTERED MENTAL STATUS, UNSPECIFIED 08/27/2016 CORBY QUINONEZ MD, Ot T82.7XXA INFECT/INFLM REACT D/T OTH CARDI/VASC DE 08/27/2016 CORBY QUINONEZ MD, Ot Z79.4 ENGINE PILOT (CURRENT) USE OF INSULIN 08/27/2016 CORBY QUINONEZ MD, Ot Z79.82 ENGINE PILOT (CURRENT) USE OF ASPIRIN 08/27/2016 CORBY QUINONEZ MD, Ot Z79.899 OTHER ENGINE PILOT (CURRENT) DRUG THERAPY 09/04/2016 CORBY QUINONEZ MD Ot A41.9 SEPSIS, UNSPECIFIED ORGANISM 09/04/2016 CORBY QUINONEZ MD Ot E11.9 TYPE 2 DIABETES MELLITUS WITHOUT COMPLIC 09/04/2016 CORBY QUINONEZ MD Ot I25.10 ATHSCL HEART DISEASE OF [place] CORONARY 09/04/2016 CORBY QUINONEZ MD Ot I51.7 CARDIOMEGALY 09/04/2016 CORBY QUINONEZ MD, Ot K04.7 PERIAPICAL ABSCESS WITHOUT SINUS 09/04/2016 CORBY QUINONEZ MD Ot R41.82 ALTERED MENTAL STATUS, UNSPECIFIED 09/04/2016 CORBY QUINONEZ MD Ot T82.7XXA INFECT/INFLM REACT D/T OTH CARDI/VASC DE 09/04/2016 CORBY QUINONEZ MD, Ot Z79.4 ENGINE PILOT (CURRENT) USE OF INSULIN 09/04/2016 CORBY QUINONEZ MD Ot Z79.82 ASSISTED (CURRENT) USE OF ASPIRIN 09/04/2016 CORBY QUINONEZ MD, Ot Z79.899 OTHER ASSISTED (CURRENT) DRUG THERAPY 10/28/2016 TERESA HUSAIN FACC, HENRIQUE OWENSP CCDS Ot E10.9 TYPE 1 DIABETES MELLITUS WITHOUT COMPLIC 10/28/2016 TERESA HUSAIN FACC, HENRIQUE FACP CCDS Ot E78.00 PURE HYPERCHOLESTEROLEMIA, UNSPECIFIED 10/28/2016 TERESA HUSAIN FACC, ALI FACP CCDS Ot G47.33 OBSTRUCTIVE SLEEP APNEA (ADULT) (PEDIATR 10/28/2016 TERESA HUSAIN FACC, HENRIQUE FACP CCDS Ot I42.9 CARDIOMYOPATHY, UNSPECIFIED 10/28/2016 TERESA HUSAIN FACC, HENRIQUE FACP CCDS Ot I50.22 CHRONIC SYSTOLIC (CONGESTIVE) HEART FAIL 10/28/2016 TERESA HUSAIN FACC, HENRIQUE FACP CCDS Ot Z45.09 ENCOUNTER FOR ADJUSTMENT AND MANAGEMENT 10/28/2016 HENRIQUE MOORE MD, FACC FACP CCDS Ot Z79.4 ASSISTED (CURRENT) USE OF INSULIN 10/28/2016 HENRIQUE MOORE MD, FACC FACP CCDS Ot Z79.899 OTHER ENGINE PILOT (CURRENT) DRUG THERAPY 10/29/2016 HEDY GARCIA MD Ot E11.622 TYPE 2 DIABETES MELLITUS WITH OTHER SKIN 10/29/2016 HEDY GARCIA MD Ot L98.492 NON-PRS CHRONIC ULCER OF SKIN OF SITES W 10/29/2016 HEDY GARCIA MD Ot T81.31XA DISRUPTION OF EXTERNAL OPERATION (SURGIC 09/03/2017 BRIGHT FUENTES DO Ot E11.9 TYPE 2 DIABETES MELLITUS WITHOUT COMPLIC 09/03/2017 BRIGHT FUENTES DO Ot E87.5 HYPERKALEMIA 09/03/2017 BRIGHT FUENTES DO Ot I11.0 HYPERTENSIVE HEART DISEASE WITH HEART FA 09/03/2017 LONDON FUENTES DOA Anthony Ot I50.22 CHRONIC SYSTOLIC (CONGESTIVE) HEART FAIL 09/03/2017 [place] FUENTES DOA K Ot J18.9 PNEUMONIA, UNSPECIFIED ORGANISM 09/03/2017 [place] FUENTES DOA Anthony Ot N17.0 ACUTE KIDNEY FAILURE WITH TUBULAR NECROS 09/03/2017 BRIGHT FUENTES DO Ot Z79.4 ASSISTED (CURRENT) USE OF INSULIN 09/03/2017 [place] FUENTES DOA K Ot Z95.0 PRESENCE OF CARDIAC PACEMAKER 09/04/2017 [place] FUENTES DOA K Ot E11.9 TYPE 2 DIABETES MELLITUS WITHOUT COMPLIC 09/04/2017 [place] FUENTES DOA Anthony Ot E87.5 HYPERKALEMIA 09/04/2017 BRIGHT FUENTES DO Ot I11.0 HYPERTENSIVE HEART DISEASE WITH HEART FA 09/04/2017 BRIGHT FUENTES DO Ot I50.22 CHRONIC SYSTOLIC (CONGESTIVE) HEART FAIL 09/04/2017 BRIGHT FUENTES DO Ot J18.9 PNEUMONIA, UNSPECIFIED ORGANISM 09/04/2017 BRIGHT FUENTES DO Ot N17.0 ACUTE KIDNEY FAILURE WITH TUBULAR NECROS 09/04/2017 BRIGHT FUENTES DO Ot Z79.4 ENGINE PILOT (CURRENT) USE OF INSULIN 09/04/2017 BRIGHT FUENTES DO Ot Z95.0 PRESENCE OF CARDIAC PACEMAKER 02/22/2018 CHARLOTTE FITZPATRICK DO Ot L02.31 CUTANEOUS ABSCESS OF BUTTOCK 02/24/2018 TERESA HUSAIN FACC, ALI FACP CCDS Ot E10.9 TYPE 1 DIABETES MELLITUS WITHOUT COMPLIC 02/24/2018 TERESA HUSAIN FACC, ALI GRACIELAP CCDS Ot I42.8 OTHER CARDIOMYOPATHIES 02/24/2018 CHARLOTTE FITZPATRICK DO Ot L02.31 CUTANEOUS ABSCESS OF BUTTOCK 02/25/2018 TERESA HUSAIN FACC, ALI FACP CCDS Ot E10.9 TYPE 1 DIABETES MELLITUS WITHOUT COMPLIC 02/25/2018 TERESA HUSAIN FACC, ALI FACP CCDS Ot I42.8 OTHER CARDIOMYOPATHIES 02/25/2018 CHARLOTTE FITZPATRICK DO Ot L02.31 CUTANEOUS ABSCESS OF BUTTOCK 02/25/2018 CHARLOTTE FITZPATRICK DO Ot E11.42 TYPE 2 DIABETES MELLITUS WITH DIABETIC P 02/25/2018 CHARLOTTE FITZPATRICK DO Ot G47.33 OBSTRUCTIVE SLEEP APNEA (ADULT) (PEDIATR 02/25/2018 CHARLOTTE FITZPATRICK DO Ot I11.0 HYPERTENSIVE HEART DISEASE WITH HEART FA 02/25/2018 CHARLOTTE FITZPATRICK DO Ot I25.10 ATHSCL HEART DISEASE OF [place] CORONARY 02/25/2018 CHARLOTTE FITZPATRICK DO Ot I50.9 HEART FAILURE, UNSPECIFIED 02/25/2018 CHARLOTTE FITZPATRICK DO Ot L05.91 PILONIDAL CYST WITHOUT ABSCESS 02/25/2018 CHARLOTTE FITZPATRICK DO Ot Z79.4 ASSISTED (CURRENT) USE OF INSULIN 02/25/2018 CHARLOTTE FITZPATRICK DO Ot Z79.899 OTHER ENGINE PILOT (CURRENT) DRUG THERAPY 02/25/2018 CHARLOTTE FITZPATRICK DO Ot Z95.810 PRESENCE OF AUTOMATIC (IMPLANTABLE) CARD 02/25/2018 ORELAND CHARLOTTE OVIEDO Ot Z01.818 ENCOUNTER FOR OTHER PREPROCEDURAL EXAMIN 03/01/2018 CHARLOTTE FITZPATRICK DO Ot E11.42 TYPE 2 DIABETES MELLITUS WITH DIABETIC P 03/01/2018 FITZPATRICK [place]TE OVIEDO Ot G47.33 OBSTRUCTIVE SLEEP APNEA (ADULT) (PEDIATR 03/01/2018 CHARLOTTE FITZPATRICK DO Ot I11.0 HYPERTENSIVE HEART DISEASE WITH HEART FA 03/01/2018 FITZPATRICK CHARL[place]TE OVIEDO Ot I25.10 ATHSCL HEART DISEASE OF [place] CORONARY 03/01/2018 FITZPATRICK CHARL[place]TE OVIEDO Ot I50.9 HEART FAILURE, UNSPECIFIED 03/01/2018 FITZPATRICK [place] OVIEDO Ot L05.91 PILONIDAL CYST WITHOUT ABSCESS 03/01/2018 FITZPATRICK DOCHARLOTTE Ot Z79.4 ASSISTED (CURRENT) USE OF INSULIN 03/01/2018 CHARLOTTE FITZPATRICK DO Ot Z79.899 OTHER ASSISTED (CURRENT) DRUG THERAPY 03/01/2018 FITZPATRICK [place] OVIEDO Ot Z95.810 PRESENCE OF AUTOMATIC (IMPLANTABLE) CARD 03/09/2018 CHARLOTTE FITZPATRICK DO Ot L02.31 CUTANEOUS ABSCESS OF BUTTOCK 03/18/2018 CHARLOTTE FITZPATRICK DO Ot L02.31 CUTANEOUS ABSCESS OF BUTTOCK Procedures There is no data. Results Test Result Range Automated blood complete blood count (hemogram) panel - 08/11/16 07:22 Blood leukocytes automated count (number/volume) 6.9 10*3/uL 4.3-11.0 Blood erythrocytes automated count (number/volume) 4.98 10*6/uL 4.35-5.85 Venous blood hemoglobin measurement (mass/volume) 14.7 g/dL 13.3-17.7 Blood hematocrit (volume fraction) 43 % 40-54 Automated erythrocyte mean corpuscular volume 87 [foz_us] 80-99 Automated erythrocyte mean corpuscular hemoglobin (mass per erythrocyte) 30 pg 25-34 Automated erythrocyte mean corpuscular hemoglobin concentration measurement ( mass/volume) 34 g/dL 32-36 Automated erythrocyte distribution width ratio 12.8 % 10.0-14.5 Automated blood platelet count (count/volume) 188 10*3/uL 130-400 Automated blood platelet mean volume measurement 9.9 [foz_us] 7.4-10.4 PT panel in platelet poor plasma by coagulation assay - 08/11/16 07:22 Prothrombin time (PT) in platelet poor plasma by coagulation assay 11.2 s 12.2-14.7 INR in platelet poor plasma or blood by coagulation assay 0.8 0.8-1.4 Activated partial thromboplastin time (aPTT) in platelet poor plasma bycoagulation assay - 08/11/16 07:22 Activated partial thromboplastin time (aPTT) in platelet poor plasma bycoagulation assay 23 s 24-35 Comprehensive metabolic panel - 08/11/16 07:22 Serum or plasma sodium measurement (moles/volume) 139 mmol/L 135-145 Serum or plasma potassium measurement (moles/volume) 4.4 mmol/L 3.6-5.0 Serum or plasma chloride measurement (moles/volume) 103 mmol/L 98-107 Carbon dioxide 26 mmol/L 21-32 Serum or plasma anion gap determination (moles/volume) 10 mmol/L 5-14 Serum or plasma urea nitrogen measurement (mass/volume) 16 mg/dL 7-18 Serum or plasma creatinine measurement (mass/volume) 1.19 mg/dL 0.60-1.30 Serum or plasma urea nitrogen/creatinine mass ratio 13 NRG Serum or plasma creatinine measurement with calculation of estimated glomerular filtration rate > NRG Serum or plasma glucose measurement (mass/volume) 181 mg/dL 70-105 Serum or plasma calcium measurement (mass/volume) 9.6 mg/dL 8.5-10.1 Serum or plasma total bilirubin measurement (mass/volume) 0.5 mg/dL 0.1-1.0 Serum or plasma alkaline phosphatase measurement (enzymatic activity/volume) 82 U/L 40-136 Serum or plasma aspartate aminotransferase measurement (enzymatic activity/ volume) 31 U/L 5-34 Serum or plasma alanine aminotransferase measurement (enzymatic activity/volume ) 28 U/L 0-55 Serum or plasma protein measurement (mass/volume) 7.8 g/dL 6.4-8.2 Serum or plasma albumin measurement (mass/volume) 4.5 g/dL 3.2-4.5 Lipid 1996 panel - 08/11/16 07:22 Serum or plasma triglyceride measurement (mass/volume) 90 mg/dL <150 Serum or plasma cholesterol measurement (mass/volume) 159 mg/dL < 200 Serum or plasma cholesterol in HDL measurement (mass/volume) 53 mg/ dL 40-60 Cholesterol in LDL [mass/volume] in serum or plasma by direct assay 87 mg/dL 1-129 Serum or plasma cholesterol in VLDL measurement (mass/volume) 18 mg/ dL 5-40 Methicillin resistant Staphylococcus aureus (MRSA) screening culture - 07:22 Methicillin resistant Staphylococcus aureus (MRSA) screening culture NEG NRG Bacterial blood culture - 08/26/16 09:10 Bacterial blood culture NG NRG Bacterial blood culture - 08/26/16 09:29 QUANTITY OF GROWTH Isolated NRG Bacterial blood culture [id number] NRG Complete urinalysis with reflex to culture - 08/26/16 10:50 Urine color determination YELLOW NRG Urine clarity determination SLIGHTLY CLOUDY NRG Urine pH measurement by test strip 7 5-9 Specific gravity of urine by test strip 1.010 1.016- 1.022 Urine protein assay by test strip, semi-quantitative 3+ NEGATIVE Urine glucose detection by automated test strip 4+ NEGATIVE Erythrocytes detection in urine sediment by light microscopy 1+ NEGATIVE Urine ketones detection by automated test strip 3+ NEGATIVE Urine nitrite detection by test strip NEGATIVE NEGATIVE Urine total bilirubin detection by test strip NEGATIVE NEGATIVE Urine urobilinogen measurement by automated test strip (mass/volume) NORMAL NORMAL Urine leukocyte esterase detection by dipstick NEGATIVE NEGATIVE Automated urine sediment erythrocyte count by microscopy (number/high power field) RARE NRG Automated urine sediment leukocyte count by microscopy (number/high power field ) NONE NRG Bacteria detection in urine sediment by light microscopy NEGATIVE NRG Squamous epithelial cells detection in urine sediment by light microscopy NONE NRG Crystals detection in urine sediment by light microscopy NONE NRG Casts detection in urine sediment by light microscopy NONE NRG Mucus detection in urine sediment by light microscopy NEGATIVE NRG Complete urinalysis with reflex to culture NO NRG Serum or plasma lactate measurement (moles/volume) - 08/26/16 11:56 Serum or plasma lactate measurement (moles/volume) 1.9 mmol/L 0.5-2.0 Measles/Mumps/Rubella Immunity - 10/16/16 12:16 Rubella Antibodies, IgG 10.90 index Immune >0.99 Rubeola Ab, IgG >300.0 AU/mL Immune >29.9 Mumps Abs, IgG <9.0 AU/mL Immune >10.9 C-Peptide, Serum - 11/17/16 08:16 C-Peptide, Serum <0.1 ng/mL 1.1-4.4 Glucose, Serum - 11/17/16 08:16 Glucose, Serum 153 mg/dL 65-99 Lipid Panel - 12/24/16 09:39 Cholesterol, Total 141 mg/dL 100-199 Triglycerides 127 mg/dL 0-149 HDL Cholesterol 46 mg/dL >39 VLDL Cholesterol Jayesh 25 mg/dL 5-40 LDL Cholesterol Calc 70 mg/dL 0-99 Glucose, Serum - 12/24/16 09:39 Glucose, Serum 298 mg/dL 65-99 CBC With Differential/Platelet - 04/15/17 13:25 WBC 4.1 x10E3/uL 3.4-10.8 RBC 4.21 x10E6/uL 4.14-5.80 Hemoglobin 12.3 g/dL 12.6-17.7 Hematocrit 36.7 % 37.5-51.0 MCV 87 fL 79-97 MCH 29.2 pg 26.6-33.0 MCHC 33.5 g/dL 31.5-35.7 RDW 13.4 % 12.3-15.4 Platelets 176 x10E3/uL 150-379 Neutrophils 77 % Lymphs 16 % Monocytes 6 % Eos 0 % Basos 0 % Neutrophils (Absolute) 3.2 x10E3/uL 1.4-7.0 Lymphs (Absolute) 0.7 x10E3/uL 0.7-3.1 Monocytes(Absolute) 0.3 x10E3/uL 0.1-0.9 Eos (Absolute) 0.0 x10E3/uL 0.0-0.4 Baso (Absolute) 0.0 x10E3/uL 0.0-0.2 Immature Granulocytes 1 % Immature Grans (Abs) 0.0 x10E3/uL 0.0-0.1 Comp. Metabolic Panel (14) - 04/15/17 13:25 Glucose, Serum 135 mg/dL 65-99 BUN 21 mg/dL 6-24 Creatinine, Serum 1.78 mg/dL 0.76-1.27 eGFR If NonAfricn Am 44 mL/min/1.73 >59 eGFR If Africn Am 51 mL/min/1.73 >59 BUN/Creatinine Ratio 12 9-20 Sodium, Serum 137 mmol/L 134-144 Potassium, Serum 4.5 mmol/L 3.5-5.2 Chloride, Serum 97 mmol/L 96-106 Carbon Dioxide, Total 24 mmol/L 18-29 Calcium, Serum 9.1 mg/dL 8.7-10.2 Protein, Total, Serum 7.0 g/dL 6.0-8.5 Albumin, Serum 4.2 g/dL 3.5-5.5 Globulin, Total 2.8 g/dL 1.5-4.5 A/G Ratio 1.5 1.2-2.2 Bilirubin, Total 0.4 mg/dL 0.0-1.2 Alkaline Phosphatase, S 76 IU/L 39-117 AST (SGOT) 48 IU/L 0-40 ALT (SGPT) 38 IU/L 0-44 Bacterial blood culture - 09/02/17 13:42 Bacterial blood culture NG [facility] Complete blood count (CBC) with automated white blood cell (WBC) differential - 09/02/17 13:49 Blood leukocytes automated count (number/volume) 11.3 10*3/uL 4.3-11.0 Blood erythrocytes automated count (number/volume) 4.21 10*6/uL 4.35-5.85 Venous blood hemoglobin measurement (mass/volume) 11.9 g/dL 13.3-17.7 Blood hematocrit (volume fraction) 35 % 40-54 Automated erythrocyte mean corpuscular volume 84 [foz_us] 80-99 Automated erythrocyte mean corpuscular hemoglobin (mass per erythrocyte) 28 pg 25-34 Automated erythrocyte mean corpuscular hemoglobin concentration measurement ( mass/volume) 34 g/dL 32-36 Automated erythrocyte distribution width ratio 12.8 % 10.0-14.5 Automated blood platelet count (count/volume) 190 10*3/uL 130-400 Automated blood platelet mean volume measurement 10.7 [foz_us] 7.4-10.4 Automated blood neutrophils/100 leukocytes 73 % 42-75 Automated blood lymphocytes/100 leukocytes 11 % 12-44 Blood monocytes/100 leukocytes 15 % 0-12 Automated blood eosinophils/100 leukocytes 1 % 0-10 Automated blood basophils/100 leukocytes 0 % 0-10 Blood neutrophils automated count (number/volume) 8.3 10*3 1.8-7.8 Blood lymphocytes automated count (number/volume) 1.2 10*3 1.0-4.0 Blood monocytes automated count (number/volume) 1.7 10*3 0.0-1.0 Automated eosinophil count 0.1 10*3/uL 0.0-0.3 Automated blood basophil count (count/volume) 0.0 10*3/uL 0.0-0.1 Whole blood basic metabolic panel - 09/02/17 13:49 Serum or plasma sodium measurement (moles/volume) 130 mmol/L 135-145 Serum or plasma potassium measurement (moles/volume) 5.2 mmol/L 3.6-5.0 Serum or plasma chloride measurement (moles/volume) 99 mmol/L 98-107 Carbon dioxide 20 mmol/L 21-32 Serum or plasma anion gap determination (moles/volume) 11 mmol/L 5-14 Serum or plasma urea nitrogen measurement (mass/volume) 38 mg/dL 7-18 Serum or plasma creatinine measurement (mass/volume) 2.17 mg/dL 0.60-1.30 Serum or plasma urea nitrogen/creatinine mass ratio 18 NRG Serum or plasma creatinine measurement with calculation of estimated glomerular filtration rate 33 NRG Serum or plasma glucose measurement (mass/volume) 254 mg/dL 70-105 Serum or plasma calcium measurement (mass/volume) 9.2 mg/dL 8.5-10.1 Bacterial blood culture - 09/02/17 13:49 Bacterial blood culture NG NRG Blood lactic acid measurement (moles/volume) - 09/02/17 13:53 Blood lactic acid measurement (moles/volume) 1.36 mmol/L 0.50-2.00 Capillary blood glucose measurement by glucometer (mass/volume) - 09/02/17 15: 40 Capillary blood glucose measurement by glucometer (mass/volume) 265 mg/dL 70-110 Capillary blood glucose measurement by glucometer (mass/volume) - 09/02/17 20: 15 Capillary blood glucose measurement by glucometer (mass/volume) 314 mg/dL 70-110 Complete blood count (CBC) with automated white blood cell (WBC) differential - 09/03/17 05:18 Blood leukocytes automated count (number/volume) 10.4 10*3/uL 4.3-11.0 Blood erythrocytes automated count (number/volume) 4.00 10*6/uL 4.35-5.85 Venous blood hemoglobin measurement (mass/volume) 11.2 g/dL 13.3-17.7 Blood hematocrit (volume fraction) 34 % 40-54 Automated erythrocyte mean corpuscular volume 85 [foz_us] 80-99 Automated erythrocyte mean corpuscular hemoglobin (mass per erythrocyte) 28 pg 25-34 Automated erythrocyte mean corpuscular hemoglobin concentration measurement ( mass/volume) 33 g/dL 32-36 Automated erythrocyte distribution width ratio 13.0 % 10.0-14.5 Automated blood platelet count (count/volume) 179 10*3/uL 130-400 Automated blood platelet mean volume measurement 11.0 [foz_us] 7.4-10.4 Automated blood neutrophils/100 leukocytes 72 % 42-75 Automated blood lymphocytes/100 leukocytes 13 % 12-44 Blood monocytes/100 leukocytes 15 % 0-12 Automated blood eosinophils/100 leukocytes 0 % 0-10 Automated blood basophils/100 leukocytes 0 % 0-10 Blood neutrophils automated count (number/volume) 7.5 10*3 1.8-7.8 Blood lymphocytes automated count (number/volume) 1.3 10*3 1.0-4.0 Blood monocytes automated count (number/volume) 1.6 10*3 0.0-1.0 Automated eosinophil count 0.0 10*3/uL 0.0-0.3 Automated blood basophil count (count/volume) 0.0 10*3/uL 0.0-0.1 Comprehensive metabolic panel - 09/03/17 05:18 Serum or plasma sodium measurement (moles/volume) 130 mmol/L 135-145 Serum or plasma potassium measurement (moles/volume) 5.6 mmol/L 3.6-5.0 Serum or plasma chloride measurement (moles/volume) 99 mmol/L 98-107 Carbon dioxide 15 mmol/L 21-32 Serum or plasma anion gap determination (moles/volume) 16 mmol/L 5-14 Serum or plasma urea nitrogen measurement (mass/volume) 51 mg/dL 7-18 Serum or plasma creatinine measurement (mass/volume) 2.29 mg/dL 0.60-1.30 Serum or plasma urea nitrogen/creatinine mass ratio 22 NRG Serum or plasma creatinine measurement with calculation of estimated glomerular filtration rate 31 NRG Serum or plasma glucose measurement (mass/volume) 417 mg/dL 70-105 Serum or plasma calcium measurement (mass/volume) 8.6 mg/dL 8.5-10.1 Serum or plasma total bilirubin measurement (mass/volume) 0.5 mg/dL 0.1-1.0 Serum or plasma alkaline phosphatase measurement (enzymatic activity/volume) 81 U/L 40-136 Serum or plasma aspartate aminotransferase measurement (enzymatic activity/ volume) 21 U/L 5-34 Serum or plasma alanine aminotransferase measurement (enzymatic activity/volume ) 17 U/L 0-55 Serum or plasma protein measurement (mass/volume) 5.2 g/dL 6.4-8.2 Serum or plasma albumin measurement (mass/volume) 3.3 g/dL 3.2-4.5 Serum or plasma phosphate measurement (mass/volume) - 09/03/17 05:18 Serum or plasma phosphate measurement (mass/volume) 4.3 mg/dL 2.3-4.7 Magnesium - 09/03/17 05:18 Magnesium 1.9 mg/dL 1.8-2.4 Capillary blood glucose measurement by glucometer (mass/volume) - 09/03/17 05: 30 Capillary blood glucose measurement by glucometer (mass/volume) 374 mg/dL 70-110 Capillary blood glucose measurement by glucometer (mass/volume) - 09/03/17 10: 46 Capillary blood glucose measurement by glucometer (mass/volume) 354 mg/dL 70-110 Capillary blood glucose measurement by glucometer (mass/volume) - 09/03/17 16: 11 Capillary blood glucose measurement by glucometer (mass/volume) 247 mg/dL 70-110 Capillary blood glucose measurement by glucometer (mass/volume) - 09/03/17 20: 22 Capillary blood glucose measurement by glucometer (mass/volume) 291 mg/dL 70-110 Complete blood count (CBC) with automated white blood cell (WBC) differential - 09/04/17 04:15 Blood leukocytes automated count (number/volume) 8.4 10*3/uL 4.3-11.0 Blood erythrocytes automated count (number/volume) 4.01 10*6/uL 4.35-5.85 Venous blood hemoglobin measurement (mass/volume) 11.5 g/dL 13.3-17.7 Blood hematocrit (volume fraction) 34 % 40-54 Automated erythrocyte mean corpuscular volume 84 [foz_us] 80-99 Automated erythrocyte mean corpuscular hemoglobin (mass per erythrocyte) 29 pg 25-34 Automated erythrocyte mean corpuscular hemoglobin concentration measurement ( mass/volume) 34 g/dL 32-36 Automated erythrocyte distribution width ratio 13.1 % 10.0-14.5 Automated blood platelet count (count/volume) 203 10*3/uL 130-400 Automated blood platelet mean volume measurement 10.7 [foz_us] 7.4-10.4 Automated blood neutrophils/100 leukocytes 63 % 42-75 Automated blood lymphocytes/100 leukocytes 23 % 12-44 Blood monocytes/100 leukocytes 14 % 0-12 Automated blood eosinophils/100 leukocytes 0 % 0-10 Automated blood basophils/100 leukocytes 0 % 0-10 Blood neutrophils automated count (number/volume) 5.3 10*3 1.8-7.8 Blood lymphocytes automated count (number/volume) 1.9 10*3 1.0-4.0 Blood monocytes automated count (number/volume) 1.2 10*3 0.0-1.0 Automated eosinophil count 0.0 10*3/uL 0.0-0.3 Automated blood basophil count (count/volume) 0.0 10*3/uL 0.0-0.1 Hemoglobin A1c - 09/04/17 04:15 Hemoglobin A1c < 4.0 4.5-6.2 Comprehensive metabolic panel - 09/04/17 04:15 Serum or plasma sodium measurement (moles/volume) 138 mmol/L 135-145 Serum or plasma potassium measurement (moles/volume) 4.5 mmol/L 3.6-5.0 Serum or plasma chloride measurement (moles/volume) 107 mmol/L 98-107 Carbon dioxide 20 mmol/L 21-32 Serum or plasma anion gap determination (moles/volume) 11 mmol/L 5-14 Serum or plasma urea nitrogen measurement (mass/volume) 32 mg/dL 7-18 Serum or plasma creatinine measurement (mass/volume) 1.31 mg/dL 0.60-1.30 Serum or plasma urea nitrogen/creatinine mass ratio 24 NRG Serum or plasma creatinine measurement with calculation of estimated glomerular filtration rate 58 NRG Serum or plasma glucose measurement (mass/volume) 165 mg/dL 70-105 Serum or plasma calcium measurement (mass/volume) 8.5 mg/dL 8.5-10.1 Serum or plasma total bilirubin measurement (mass/volume) 0.4 mg/dL 0.1-1.0 Serum or plasma alkaline phosphatase measurement (enzymatic activity/volume) 73 U/L 40-136 Serum or plasma aspartate aminotransferase measurement (enzymatic activity/ volume) 24 U/L 5-34 Serum or plasma alanine aminotransferase measurement (enzymatic activity/volume ) 20 U/L 0-55 Serum or plasma protein measurement (mass/volume) 6.2 g/dL 6.4-8.2 Serum or plasma albumin measurement (mass/volume) 3.1 g/dL 3.2-4.5 Capillary blood glucose measurement by glucometer (mass/volume) - 09/04/17 05: 41 Capillary blood glucose measurement by glucometer (mass/volume) 155 mg/dL 70-110 Capillary blood glucose measurement by glucometer (mass/volume) - 09/04/17 11: 20 Capillary blood glucose measurement by glucometer (mass/volume) 267 mg/dL 70-110 Methicillin resistant Staphylococcus aureus (MRSA) screening culture - 09:10 Methicillin resistant Staphylococcus aureus (MRSA) screening culture TNP NR Capillary blood glucose measurement by glucometer (mass/volume) - 02/25/18 09: 17 Capillary blood glucose measurement by glucometer (mass/volume) 212 mg/dL 70-110 Whole blood basic metabolic panel - 02/25/18 09:20 Serum or plasma sodium measurement (moles/volume) 137 mmol/L 135-145 Serum or plasma potassium measurement (moles/volume) 4.1 mmol/L 3.6-5.0 Serum or plasma chloride measurement (moles/volume) 103 mmol/L 98-107 Carbon dioxide 23 mmol/L 21-32 Serum or plasma anion gap determination (moles/volume) 11 mmol/L 5-14 Serum or plasma urea nitrogen measurement (mass/volume) 16 mg/dL 7-18 Serum or plasma creatinine measurement (mass/volume) 1.19 mg/dL 0.60-1.30 Serum or plasma urea nitrogen/creatinine mass ratio 13 NRG Serum or plasma creatinine measurement with calculation of estimated glomerular filtration rate > NRG Serum or plasma glucose measurement (mass/volume) 226 mg/dL 70-105 Serum or plasma calcium measurement (mass/volume) 8.9 mg/dL 8.5-10.1 Bacteria identification in isolate by anaerobe culture - 02/25/18 11:13 QUANTITY OF GROWTH Moderate Growth NRG Bacteria identification in isolate by anaerobe culture [id number] NRG Gram stain microscopy - 02/25/18 11:13 GRAM STAIN RESULT FEW GRAM POSITIVE COCCI NRG Bacteria identification in wound by culture - 02/25/18 11:13 Bacteria identification in wound by culture [id number] NRG QUANTITY OF GROWTH Scant Growth NRG Capillary blood glucose measurement by glucometer (mass/volume) - 02/25/18 11: 35 Capillary blood glucose measurement by glucometer (mass/volume) 289 mg/dL 70-110 Encounters ACCT No. Visit Date/Time Discharge Status Pt. Type Provider Facility Loc./Unit Complaint [id number] 02/25/2018 08:20:00 02/25/2018 23:59:59 CLS Outpatient CHARLOTTE FITZPATRICK DO [facility] SDC PILONIDAL CYST [id number] 02/24/2018 05:29:00 02/24/2018 10:56:00 DIS Outpatient CHARLOTTE FITZPATRICK DO [facility] PREOP PILONIDAL CYST [id number] 02/21/2018 11:56:00 02/21/2018 23:59:59 CLS Outpatient FITZPATRICK CHARLOTTE OVIEDO [facility] RAD L02.91 SOFT TISSUE ABSCESS [id number] 09/02/2017 12:47:00 09/04/2017 12:13:00 DIS Inpatient BRIGHT FUENTES DO [facility] 4TH PNEUMONIA [id number] 10/12/2016 13:21:00 10/29/2016 16:00:00 DIS Outpatient HEDY GARCIA MD [facility] WOUNDCARE [id number] 08/26/2016 08:58:00 08/26/2016 12:50:00 DIS Emergency CORBY QUINONEZ MD [facility] ER POST OP SWELLING AT PACEMAKER SITE [id number] 08/11/2016 06:58:00 08/11/2016 14:08:00 DIS Outpatient TERESA HUSAIN FACHENRIQUE Marie FACP CCDS [facility] CATH ICD BATTERY AT ALVARO [id number] 01/31/2016 13:48:00 01/31/2016 23:59:59 CLS Outpatient HENRIQUE MOORE MD, FACCP CCDS [facility] CARD NON ISCHEMIC CARDIOMYOPATHY [id number] 03/01/2018 16:20:00 03/01/2018 23:59:59 CLS Outpatient GRISEL RIVERA MD [facility] [id number] 12/25/2016 08:42:00 Document Registration [id number] 04/16/2017 08:07:00 Document Registration [id number] 11/18/2016 10:05:00 Document Registration [id number] 10/20/2016 18:05:00 Document Registration
--- OUTSIDE RECORDS SUMMARY | 2018-03-26 12:39 | XMS REPORT ---
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 Name Role Phone GRISEL RIVERA Unavailable PROBLEMS Type Condition ICD9-CM Code CGR10-AB Code Onset Dates Condition Status SNOMED Code Problem FOREIGN (obstructive sleep apnea) G47.33 Active 31148590 Problem Insulin long-term use Z79.4 Active 620095004 Problem Diabetes type 1, controlled E10.9 Active 05042471 Problem Non-ischemic cardiomyopathy I42.9 Active 82346300 Problem Acute seasonal allergic rhinitis due to other allergen J30.2 Active 923877376 Problem BMI 34.0-34.9,adult Z68.34 Active 128555836 Problem Hypertension I10 Active 53753901 Problem Diabetes E11.9 Active 86712130 Problem Generalized anxiety disorder F41.1 Active 02386459 Problem Skin ulcer, limited to breakdown of skin L98.491 Active 70692330 ALLERGIES No Information ENCOUNTERS Encounter Location Date Diagnosis [facility] [id number] [place] [address] 88441- 0876 Jan, Medicare annual wellness visit, initial Z00.00 ; Non- ischemic cardiomyopathy I42.9 ; Diabetes type 1, controlled E10.9 ; Generalized anxiety disorder F41.1 ; Hypertension I10 and BMI 34.0-34.9,adult Z68.34 [facility] [address] [address] Dec, [facility] [id number] [place] [address] 39347- 5065 Dec, [facility] [id number] [place] [address] 49639- 0185 Dec, [facility] [id number] [place] [address] 81940- 8251 Dec, Pilonidal cyst with abscess L05.01 [facility] [address] [place] [address] 11852- 5133 Dec, [facility] [id number] [place] [address] 08913- 4970 Nov, [facility] [id number] [place] [address] 41260- 1538 Nov, [facility] [id number] [place] [address] 71398- 4741 Nov, [facility] [id number] [place] [address] 12931 -7420 Nov, [facility] [id number] [place] [address] 10176- 4143 Oct, Pilonidal cyst with abscess L05.01 [facility] [id number] [place] [address] 38717- 2659 Oct, BMI 37.0-37.9, adult Z68.37 [facility] [id number] [place] [address] 66479- 5419 Oct, [facility] [address] [place] [address] 89015- 5493 Oct, [facility] [address] [place] [address] 86013- 6134 Sep, Sebaceous cyst L72.3 [facility] [address] [place] [address] 08650- 7887 Sep, [facility] [id number] [place] [address] 91372- 9773 Sep, [facility] [address] [place] [address] 64944- 6746 Sep, Local infection of the skin and subcutaneous tissue, unspecified L08.9 [facility] [id number] [address] 9879 Sep, [facility] [address] [place] [address] 93010- 8256 Sep, [facility] [id number] [place] [address] 97404- 9088 Aug, [facility] [id number] [place] [address] 86759 -9459 Aug, Cough R05 and Community acquired pneumonia of left lower lobe of lung J18.1 [facility] [id number] [place] [address] 23260- 6793 Aug, [facility] [id number] [place] [address] 47234- 7290 Jul, Diabetes type 1, controlled E10.9 ; Encounter for immunization Z23 and FOREIGN (obstructive sleep apnea) G47.33 [facility] [address] [place] [address] 93056- 5382 Jul, [address] [id number] [place] [address] Jul [facility] [address] [place] [address] 56874- 1231 Jul, Diabetes type 1, controlled E10.9 [facility] [address], [place] [address] 8802 Jul, [facility] [address] [place] [address] 69699- 6069 Jul, [facility] [address], [place] [address] Jul, Acute seasonal allergic rhinitis due to other allergen J30.2 [facility] [address], [place] [address] 7219 Jun, [facility] [address] [place] [address] 44795- 8288 Jun, [facility] [address], [place] [address] 1800 Jun, [facility] [address] [place] [address], [place] [address] May, [facility] [address], [place] [address] 4670 Apr, [facility] [id number] [place] [address] 77107- 8881 Apr, [facility] [id number] [place] [address] 00683- 3611 Mar, Renal insufficiency N28.9 [facility] [id number] [place] [address] 43626- 1180 Mar, [facility] [id number] [place] [address] 57673- 6842 Mar, Other specified hypotension I95.89 [facility] [address], [place] [address] 7178 Mar, [facility] [address] [place] [address] 82790- 8819 February, [facility] [address] [address] 2773 February, Allergy, initial encounter T78.40XA [facility] [address], [place] [address] 0407 February, Diabetes type 1, controlled E10.9 [facility] [address] [address] 8797 February, [facility] [id number] [place] [address] 60482- 5135 February, [facility] [address], [place] [address]- 3913 Dec, [facility] [id number] [place] [address] 83210- 0790 Dec, BMI 34.0-34.9,adult Z68.34 [facility] [id number] [place] [address] 81348- 0343 Nov, Generalized anxiety disorder F41.1 [facility] [id number] [place] [address] 44720- 1544 Nov, [facility] [address] [address]- 5767 Nov, [facility] [id number] [place] [address] 60270- 5206 Nov, Skin ulcer, limited to breakdown of skin L98.491 [facility] [id number] [place] [address] 63155- 3738 Oct, [facility] [id number] [place] [address] 70297- 0867 Oct, Insulin long-term use Z79.4 [facility] [id number] [place] [address] 94871- 0356 Oct, [facility] [id number] [place] [address] 61470- 5457 Oct, Insulin long-term use Z79.4 [facility] [id number] [place] [address] 98687- 5623 Oct, [facility] [id number] [place] [address] 43743- 8611 Oct, Encounter for immunization Z23 [facility] [id number] [place] [address] 19930- 6533 Oct, [facility] [id number] [place] [address] 95621- 6136 Sep, [facility] [id number] [place] [address] 08959- 9372 Sep, Acute nasopharyngitis J00 ; Routine adult health maintenance Z00.00 and Encounter for school examination Z02.0 [facility] [address] [facility] [id number] [place] [address]- 9306 Sep, [facility] [address] [facility] [id number] [place] [address]- 5190 Sep, Diabetes type 1, controlled E10.9 [facility] [address] [facility] [id number] [address]- 3209 Aug, [facility] [address] [facility] [id number] [place] [address]- 5283 Aug, [facility] [address] [facility] [id number] [place] [address]- 0004 Aug, [facility] [address] [facility] [id number] [place] [address]- 2707 Aug, [facility] [address] [place] [address]- 9125 Aug, [facility] [address] [facility] [id number], [place] [address]- 7825 Aug, [facility] [id number] [place] [address]- 9405 Jul, [facility] [address] [facility] [id number] [place] [address]- 7593 Jul, [facility] [address], [place] [address]- 5269 27 Jun, 2016 [facility] [address] [facility] [id number] [address]- 2542 26 Jun, 2016 [facility] [address] [facility] [id number], [place] [address]- 5930 12 Jun, 2016 [facility] [address] [facility] [id number][place] [address]- 2541 07 Jun, 2015 [facility] [address] [facility] [id number] [address]- 4081 06 Jun, 2016 Diabetes type 1, controlled E10.9 [facility] [address] [place] [address]- 8033 Jun, [facility] [address], [place] [address]- 8839 Jun, [facility] [address] [place] [address]- 3107 May, [facility] [address] [place] [address] 68852- 8568 May, [facility] [address] [place] [address]- 8334 May, [facility] [id number] [place] [address] 44909- 7325 May, [facility] [address] [place] [address]- 0350 May, [facility] [address], [place] [address]- 9365 Apr, BMI 39.0-39.9,adult Z68.39 [facility] [address], [place] [address]- 5511 Jan, [facility] [address], [place] [address]- 3982 Jan, Diabetes type 1, controlled E10.9 [facility] [address], [place] [address]- 0617 Dec, [facility] [address], [place] [address]- 7333 Dec, Diabetes type 1, controlled E10.9 [facility] [address], [place] [address]- 5251 Nov, [facility] [address], [place] [address]- 7948 Nov, Hypertension I10 [facility] [address] [address]- 4971 Nov, Hypertension I10 [facility] [id number], [place] [address]- 9608 Oct, Diabetes type 1, controlled E10.9 ; Insulin long-term use Z79.4 ; Non-ischemic cardiomyopathy I42.9 ; Hypertension I10 and FOREIGN ( obstructive sleep apnea) G47.33 [facility] [id number] [address]- 2009 Oct, Encounter for PPD test Z11.1 IMMUNIZATIONS No Known Immunizations SOCIAL HISTORY Never Assessed REASON FOR VISIT Repower return? PLAN OF CARE VITAL SIGNS MEDICATIONS No [...]
[2018-03-26 13:34] VITALS: BP_SYST 114; BP_SYST 116; BP_SYST 77; BP_DIAS 50; BP_DIAS 58; BP_DIAS 68
[2018-03-26] MEDS ORDERED: NS IV 1000 ML 1,000 ML IV ONE (13:40)
[2018-03-26 13:52] LABS: BASOPHILS % (AUTO) 0 % (0-10); EOSINOPHILS % (AUTO) 0 % (0-10); HEMATOCRIT 34 % (40-54); HEMOGLOBIN 11.5 G/DL (13.3-17.7); LYMPHOCYTES # (AUTO) 1.1 X 10^3 (1.0-4.0); LYMPHOCYTES % (AUTO) 7 % (12-44); MEAN CORPUSCULAR HEMOGLOBIN 29 PG (25-34); MEAN CORPUSCULAR HGB CONC 34 G/DL (32-36); MEAN CORPUSCULAR VOLUME 85 FL (80-99); MEAN PLATELET VOLUME 9.2 FL (7.4-10.4); MONOCYTES # (AUTO) 1.5 X 10^3 (0.0-1.0); MONOCYTES % (AUTO) 10 % (0-12); NEUTROPHILS # (AUTO) 12.5 X 10^3 (1.8-7.8); NEUTROPHILS % (AUTO) 83 % (42-75); PLATELET COUNT 240 10^3/uL (130-400); RED BLOOD COUNT 4.01 10^6/uL (4.35-5.85); RED CELL DISTRIBUTION WIDTH 14.7 % (10.0-14.5); WHITE BLOOD COUNT 15.1 10^3/uL (4.3-11.0)
[2018-03-26 14:02] LABS: INR 1.1 (0.8-1.4); PROTHROMBIN TIME PATIENT 14.4 SEC (12.2-14.7)
[2018-03-26 14:16] LABS: ALANINE AMINOTRANSFERASE 13 U/L (0-55); ALBUMIN 3.4 GM/DL (3.2-4.5); ALKALINE PHOSPHATASE 61 U/L (40-136); AMYLASE 26 U/L (25-125); BILIRUBIN,TOTAL 0.6 MG/DL (0.1-1.0); BUN/CREATININE RATIO 10; CALCIUM 8.8 MG/DL (8.5-10.1); CARBON DIOXIDE 23 MMOL/L (21-32); CHLORIDE 101 MMOL/L (98-107); CREATININE SERUM 1.24 MG/DL (0.60-1.30); GFR ESTIMATED > 60; GLUCOSE 99 MG/DL (70-105); LIPASE < 4 U/L (8-78); MAGNESIUM 1.9 MG/DL (1.8-2.4); POTASSIUM 4.4 MMOL/L (3.6-5.0); SODIUM 136 MMOL/L (135-145); TOTAL PROTEIN 6.9 GM/DL (6.4-8.2)
--- NOTE | 2018-03-26 14:26 | Diagnostic Imaging Report ---
INDICATION: Diarrhea, congestive heart failure. COMPARISON: 09/02/2017. TECHNIQUE: Single frontal radiograph of the chest dated 03/26/2018. FINDINGS: Pacer device is again identified with a battery pack overlying the right chest. Additional leads are seen overlying the left heart border, stable from the prior examination. The cardiac silhouette is enlarged, though stable. No significant pulmonary vascular congestion. The lungs are clear. No pleural effusion. No pneumothorax. No acute osseous abnormality. IMPRESSION: Cardiomegaly without overt congestive heart failure. Additional postsurgical and chronic findings as above. Dictated by: Dictated on workstation # [id number]
[2018-03-26] MEDS ORDERED: LACTATED RINGERS 1,000 ML IV ONE ×3 (14:32→16:22)
[2018-03-26 14:35] LABS: LYMPHOCYTES % (MANUAL) 8 %; MONOCYTES % (MANUAL) 10 %; NEUTROPHILS % (MANUAL) 82 %; RBC MORPH NORMAL; TSH (THYROID ANALYZER) 0.98 UIU/ML (0.35-4.94)
[2018-03-26 14:53] LABS: BILIRUBIN,URINE NEGATIVE (NEGATIVE); CLARITY,URINE CLEAR; COLOR,URINE YELLOW; GLUCOSE, URINE (UA) NEGATIVE (NEGATIVE); KETONES,URINE 1+ (NEGATIVE); LEUKOCYTE ESTERASE ,URINE NEGATIVE (NEGATIVE); NITRITE,URINE NEGATIVE (NEGATIVE); PH,URINE 5 (5-9); PROTEIN,URINE 2+ (NEGATIVE); UROBILINOGEN,URINE NORMAL (NORMAL)
[2018-03-26 15:00] LABS: BACTERIA,URINE NEGATIVE /HPF; HYALINE CASTS, URINE >50 /LPF; SQUAMOUS EPITHELIAL CELL,UR 0-2 /HPF
[2018-03-26 15:06] LABS: AMPHETAMINE SCREEN, URINE NEGATIVE (NEGATIVE); BARBITURATE SCREEN URINE NEGATIVE (NEGATIVE); BENZODIAZEPINES SCREEN URINE NEGATIVE (NEGATIVE); CANNABINOID SCREEN, URINE NEGATIVE (NEGATIVE); COCAINE SCREEN URINE NEGATIVE (NEGATIVE); METHADONE STAT NEGATIVE (NEGATIVE); METHAMPHETAMINE SCREEN URINE S NEGATIVE (NEGATIVE); OPIATE SCREEN URINE NEGATIVE (NEGATIVE); OXYCODONE STAT NEGATIVE (NEGATIVE); PROPOXYPHENE STAT NEGATIVE (NEGATIVE); TRICYCLIC ANTIDEPRESSANTS SCRE NEGATIVE (NEGATIVE)
[2018-03-26 16:14] VITALS: BP_SYST 103; BP_SYST 116; BP_SYST 128; BP_DIAS 60; BP_DIAS 63; BP_DIAS 79
[2018-03-26] MEDS ORDERED: METR500T PO ×2 (17:30→18:06)
[2018-03-26] MEDS ORDERED: LACT1CAP8 PO ×2 (17:30→18:06)
[2018-03-26 17:32] VITALS: BP_SYST 112; BP_SYST 121; BP_SYST 123; BP_DIAS 62; BP_DIAS 63; BP_DIAS 71
--- NOTE | 2018-03-26 17:32 | ED General ---
General Chief Complaint: Abdominal/GI Problems Stated Complaint: PASSED OUT MULTIPLE TIMES, CONGESTIVE HEART FAILUR Nursing Triage Note: PT REPORTS DIARRHEA FOR DAYS, CHF HX, DM HX, OPEN DRAINING COCCYX WOUND RECENTLY OPERATED ON. Nursing Sepsis Screen: No Definite Risk Source of Information: Patient History of Present Illness Date Seen by Provider: Mar 26, 2018 Time Seen by Provider: 13:15 Initial Comments PT ARRIVES VIA POV FROM HOME C/O DIARRHEA X 1-2 WEEKS--NO BLACK/BLOODY/TARRY STOOLS C/O GENERALIZED WEAKNESS, AND STATES HE "PASSED OUT" TWICE--PT DID NOT ACTUALLY HAVE FULL SYNCOPAL EPISODES, BUT HE WAS WALKING HE FELT VERY WEAK AND DIZZY AND FELT LIKE HE WAS GOING TO PASS OUT, BUT GOT DOWN ON HIS KNEES BEFORE HE ACTUALLY PASSED OUT. NO INJURIES. STATES HE TRIED OTC ANTIDIARRHEA MEDICATIONS WITHOUT IMPROVEMENT NO VOMITING, BUT HAS HAD NAUSEA AND NOT HAD MUCH OF AN APPETITE, AND IS NOT DRINKING MUCH FLUIDS PT IS UNAWARE OF ANY FEVER/CHILLS, BUT PT HAS TEMP OF 100.9 ON ARRIVAL HERE PT IS TYPE 1 DIABETIC PT HAS A CHRONIC, DRAINING PILONIDAL CYST, AND HAS HAD SURGERY BY Stefani RAMIREZ A COUPLE OF WEEKS AGO, BUT AREA STILL WITH A LARGE PACKING IN PLACE AND STILL DRAINING--STATES HE CHANGES THE DRESSING AT LEAST 4 TIMES A DAY NO FEVER. PT HAS BEEN ON SEVERAL ROUNDS OF ANTIBIOTICS IN THE LAST COUPLE OF MONTHS, BUT FINISHED THEM 1-2 WEEKS AGO--HAS NO IDEA WHAT ANTIBIOTICS HE HAS BEEN ON HAS NOT ATTEMPTED TO CONTACT ANYONE ABOUT THESE CURRENT PROBLEMS PCP:[facility], DR. RIVERA Allergies and Home Medications Allergies Coded Allergies: No Known Allergies (Unverified Allergy, Unknown, 02/24/18) Home Medications Atorvastatin Calcium 20 Mg Tablet, 20 MG PO 1700, (Reported) Carvedilol 25 Mg Tablet, 25 MG PO BID, (Reported) Furosemide 80 Mg Tablet, 80 MG PO 0800,1700 PRN for SWELLING, (Reported) Hydrocodone Bit/Acetaminophen 1 Tab Tab, 1 TAB PO Q4H PRN Prescribed by: CHARLOTTE FITZPATRICK on 02/25/18 1124 Insulin Aspart 100 Unit/1 Ml Susp, SQ TIDWM, (Reported) PER INSULIN PUMP Lactobacillus Acidophilus 1 Each Capsule, 2 EACH PO QID Prescribed by: SUNNY TIWARI on 6/2/18 1806 Metronidazole 500 Mg Tablet, 500 MG PO QID Prescribed by: SUNNY TIWARI on 03/26/181805 Paroxetine HCl 30 Mg Tablet, 30 MG PO DAILY, (Reported) Sacubitril/Valsartan 1 Each Tablet, 1 TAB PO BID, (Reported) Spironolactone 25 Mg Tablet, 25 MG PO DAILY, (Reported) Patient Home Medication List Home Medication List Reviewed: Yes Review of Systems Constitutional: see HPI Respiratory: no symptoms reported Cardiovascular: no symptoms reported Gastrointestinal: see HPI; No abdominal pain; diarrhea, nausea; No vomiting Genitourinary: decreased output Skin: see HPI Past Gkervza-Bbqoim-Imtdny Hx Patient Social History Alcohol Use: Rarely Uses Number of Drinks Today: AA Alcohol Beverage of Choice: Beer Recreational Drug Use: No Smoking Status: Never a Smoker Recent Foreign Travel: No Contact w/Someone Who Travel: No Recent Infectious Disease Expo: No Recent Hopitalizations: No Immunizations Up To Date Tetanus Booster (TDap): Less than 5yrs Date of Influenza Vaccine: Aug 02, 2017 Seasonal Allergies Seasonal Allergies: No Past Medical History Surgeries: Yes (CARPAL TUNNEL, PENILE IMPLANT, PACEMAKER/DEFIB) Defibrillator, Pacemaker Respiratory: Yes Sleep Apnea Currently Using CPAP: Yes Currently Using BIPAP: No Cardiac: Yes (CHF EJ 15%) Coronary Artery Disease Neurological: No Reproductive Disorders: No Sexually Transmitted Disease: No HIV/AIDS: No Genitourinary: Yes Gastrointestinal: No Musculoskeletal: No Endocrine: Yes (TYPE 1 DIABETES DX AGE 11) Diabetes, Insulin dep HEENT: No Loss of Vision: Bilateral Hearing Impairment: Denies Cancer: No Psychosocial: Yes Anxiety, Depression Integumentary: Yes (CHRONIC PILONIDAL CYST/ABSCESS) Blood Disorders: No Adverse Reaction/Blood Tranf: No (N/A) Family Medical History Hypertension 19 MOTHER No Pertinent Family Hx Physical Exam Vital Signs Vital Signs - First Documented 03/26/18 12:55 Temp 100.9 Pulse 81 Resp 20 B/P (MAP) 63/48 (53) Pulse Ox 100 O2 Delivery Room Air Capillary Refill : Less Than 3 Seconds General Appearance: No Apparent Distress, WD/WN, Anxious, Other (CONSTANT JERKING/TWITING/SHRUGGING OF LEFT SHOULDER AND LEFT SIDE OF FACE; PT VERY TALKATIVE. DOES APPEAR TO BE GENERALLY WEAK) Neck: Normal Inspection Respiratory: Normal Breath Sounds, No Accessory Muscle Use, No Respiratory Distress Cardiovascular: No Edema, No Murmur Neurologic/Psychiatric: Alert, Oriented x3, No Motor/Sensory Deficits, Normal Mood/Affect, director of planning II-XII Norm as Tested Focused Exam Lactate Level 03/26/18 13:25: Lactic Acid Level 1.17 Progress/Results/Core Measures Suspected Sepsis Recent Fever Within 48 Hours: No Infection Criteria Present: Suspected New Infection New/Unexplained Altered Menta: No Sepsis Screen: No Definite Risk SIRS Temperature:100.9 Pulse: 87 Respiratory Rate: 20 Laboratory Tests 03/26/18 13:25: White Blood Count 15.1H Blood Pressure 114 /58 Mean: 76 03/26/18 13:25: Lactic Acid Level 1.17 Laboratory Tests 03/26/18 13:25: Creatinine 1.24, INR Comment 1.1, Platelet Count 240, Total Bilirubin 0.6 Results/Orders Lab Results Laboratory Tests Test 03/26/18 13:25 03/26/18 13:57 03/26/18 14:40 Range/Units White Blood Count 15.1 H 4.3-11.0 10^3/uL Red Blood Count 4.01 L 4.35-5.85 10^6/uL Hemoglobin 11.5 L 13.3-17.7 G/DL Hematocrit 34 L 40-54 % Mean Corpuscular Volume 85 80-99 FL Mean Corpuscular Hemoglobin 29 25-34 PG Mean Corpuscular Hemoglobin Concent 34 32-36 G/DL Red Cell Distribution Width 14.7 H 10.0-14.5 % Platelet Count 240 130-400 10^3/uL Mean Platelet Volume 9.2 7.4-10.4 FL Neutrophils (%) (Auto) 83 H 42-75 % Lymphocytes (%) (Auto) 7 L 12-44 % Monocytes (%) (Auto) 10 0-12 % Eosinophils (%) (Auto) 0 0-10 % Basophils (%) (Auto) 0 0-10 % Neutrophils # (Auto) 12.5 H 1.8-7.8 X 10^3 Lymphocytes # (Auto) 1.1 1.0-4.0 X 10^3 Monocytes # (Auto) 1.5 H 0.0-1.0 X 10^3 Eosinophils # (Auto) 0.0 0.0-0.3 10^3/uL Basophils # (Auto) 0.0 0.0-0.1 10^3/uL Neutrophils % (Manual) 82 % Lymphocytes % (Manual) 8 % Monocytes % (Manual) 10 % Blood Morphology Comment NORMAL Prothrombin Time 14.4 12.2-14.7 SEC INR Comment 1.1 0.8-1.4 Activated Partial Thromboplast Time 33 24-35 SEC Sodium Level 136 135-145 MMOL/L Potassium Level 4.4 3.6-5.0 MMOL/L Chloride Level 101 98-107 MMOL/L Carbon Dioxide Level 23 21-32 MMOL/L Anion Gap 12 5-14 MMOL/L Blood Urea Nitrogen 13 7-18 MG/DL Creatinine 1.24 0.60-1.30 MG/DL Estimat Glomerular Filtration Rate > 60 BUN/Creatinine Ratio 10 Glucose Level 99 70-105 MG/DL Lactic Acid Level 1.17 0.50-2.00 MMOL/L Calcium Level 8.8 8.5-10.1 MG/DL Magnesium Level 1.9 1.8-2.4 MG/DL Total Bilirubin 0.6 0.1-1.0 MG/DL Aspartate Amino Transf (AST/SGOT) 15 5-34 U/L Alanine Aminotransferase (ALT/SGPT) 13 0-55 U/L Alkaline Phosphatase 61 40-136 U/L Troponin I < 0.30 <0.30 NG/ML B-Type Natriuretic Peptide 419.7 H <100.0 PG/ML Total Protein 6.9 6.4-8.2 GM/DL Albumin 3.4 3.2-4.5 GM/DL Amylase Level 26 25-125 U/L Lipase < 4 L 8-78 U/L TSH [place] Testing 0.98 0.35-4.94 UIU/ML Serum Alcohol < 10 <10 MG/DL Glucometer 103 70-110 MG/DL Urine Color YELLOW Urine Clarity CLEAR Urine pH 5 5-9 Urine Specific [place] 1.015 L 1.016-1.022 Urine Protein 2+ H NEGATIVE Urine Glucose (UA) NEGATIVE NEGATIVE Urine Ketones 1+ H NEGATIVE Urine Nitrite NEGATIVE NEGATIVE Urine Bilirubin NEGATIVE NEGATIVE Urine Urobilinogen NORMAL NORMAL MG/DL Urine Leukocyte Esterase NEGATIVE NEGATIVE Urine RBC (Auto) NEGATIVE NEGATIVE Urine RBC NONE /HPF Urine WBC NONE /HPF Urine Squamous Epithelial Cells 0-2 /HPF Urine Crystals NONE /LPF Urine Bacteria NEGATIVE /HPF Urine Casts PRESENT /LPF Urine Hyaline Casts >50 H /LPF Urine Mucus NEGATIVE /LPF Urine Culture Indicated NO Urine Opiates Screen NEGATIVE NEGATIVE Urine Oxycodone Screen NEGATIVE NEGATIVE Urine Methadone Screen NEGATIVE NEGATIVE Urine Propoxyphene Screen NEGATIVE NEGATIVE Urine Barbiturates Screen NEGATIVE NEGATIVE Ur Tricyclic Antidepressants Screen NEGATIVE NEGATIVE Urine Phencyclidine Screen NEGATIVE NEGATIVE Urine Amphetamines Screen NEGATIVE NEGATIVE Urine Methamphetamines Screen NEGATIVE NEGATIVE Urine Benzodiazepines Screen NEGATIVE NEGATIVE Urine Cocaine Screen NEGATIVE NEGATIVE Urine Cannabinoids Screen NEGATIVE NEGATIVE My Orders Orders - SUNNY TIWARI K DO Accucheck Stat ONCE (03/26/18 13:40) Alcohol (03/26/18 13:40) Amylase (03/26/18 13:40) Drug Screen Stat (Urine) (03/26/18 13:40) Lactic Acid Analyzer (03/26/18 13:40) Lipase (03/26/18 13:40) Magnesium (03/26/18 13:40) Protime With Inr (03/26/18 13:40) Partial Thromboplastin Time (03/26/18 13:40) Thyroid Analyzer (03/26/18 13:40) Ua Culture If Indicated (03/26/18 13:40) Saline Lock/Iv-Start (03/26/18 13:40) Ns Iv 1000 Ml (Sodium Chloride 0.9%) (03/26/18 13:40) Saline Lock/Iv-Start (03/26/18 14:32) Lactated Ringers (Lr 1000 Ml Iv Solution (03/26/18 14:32) Saline Lock/Iv-Start (03/26/18 14:57) Lactated Ringers (Lr 1000 Ml Iv Solution (03/26/18 14:57) Orthostatic Vital Signs (Adult (03/26/18 15:58) Saline Lock/Iv-Start (03/26/18 16:22) Lactated Ringers (Lr 1000 Ml Iv Solution (03/26/18 16:22) Stool Culture (03/26/18 17:48) Fecal Wbc (03/26/18 17:48) C Difficile Ag + Toxin A/B. (03/26/18 17:48) Medications Given in ED Current Medications Medications Dose Ordered Sig/Shaina Route Start Time Stop Time Status Last Admin Dose Admin Lactated Ringer's 1,000 ml @ 0 mls/hr Q0M ONCE IV 03/26/18 14:32 03/26/18 14:33 DC 03/26/18 14:53 999 MLS/HR Lactated Ringer's 1,000 ml @ 0 mls/hr Q0M ONCE IV 03/26/18 14:57 03/26/18 14:58 DC 03/26/18 15:00 999 MLS/HR Lactated Ringer's 1,000 ml @ 0 mls/hr Q0M ONCE IV 03/26/18 16:22 03/26/18 16:23 DC 03/26/18 16:27 999 MLS/HR Sodium Chloride 1,000 ml @ 0 mls/hr Q0M ONCE IV 03/26/18 13:40 03/26/18 13:43 DC 03/26/18 13:55 999 MLS/HR Vital Signs/I&O 03/26/18 03/26/18 12:55 13:34 Temp 100.9 Pulse 81 87 87 80 Resp 20 B/P (MAP) 63/48 (53) 114/58 (76) 116/68 (84) 77/50 (59) Pulse Ox 100 O2 Delivery Room Air Capillary Refill : Less Than 3 Seconds Blood Pressure Mean: 76 Point of Care Testing Finger Stick Blood Glucose: 103 Blood Glucose Action Taken: DR NOTIFIED Progress Note : Progress Note ORTHOSTATICS MUCH IMPROVED AT DISMISSAL PT IS ASYMPTOMATIC AT DISMISSAL PT ABLE TO WALK TO AND FROM BATHROOM DURING ER STAY WITHOUT ANY DIFFICULTY AT ALL PT HAD DIARRHEAL STOOL X 1 DURING ER STAY, HE WAS BEING DISMISSED. COLLECTED AND SENT TO LAB FOR STOOL STUDIES ECG Initial ECG Impression Date: Mar 26, 2018 Initial ECG Impression Time: 13:39 Initial ECG Rate: 94 Comment ATRIAL PACED, IVCD Diagnostic Imaging Comments CXR--NO ACUTE PROCESS, CARDIOMEGALY--PER RADIOLOGIST REPORT @ 1434 Reviewed: Reviewed by Me Departure Impression Primary Impression: Diarrhea Additional Impressions: DEHYDRATION WITH NEAR-SYNCOPAL EPISODES RECENT ANTIBIOTIC USE CHRONIC PILONIDAL CYST/ABSCESS Disposition: 01 HOME, SELF-CARE Condition: Improved Departure-Patient Inst. Referrals: GRISEL RIVERA MD (PCP/Family) Primary Care Physician Patient Instructions: Antibiotic-Associated Diarrhea (DC), Dehydration, Adult ( DC), Diarrhea in Adolescents and Adults Add. Discharge Instructions: LOTS OF CLEAR LIQUIDS--WATER, BROTH, JELLO, GATORADE--DRINK ENOUGH SO YOU ARE URINATING EVERY 2 HOURS WHILE AWAKE FOLLOW UP WITH YOUR DR ON WEDNESDAY RETURN TO ER IF WORSE All discharge instructions reviewed with patient and/or family. Voiced understanding. Scripts Metronidazole (Flagyl) 500 Mg Tablet 500 MG PO QID for FOR INFECTION, #40 TAB Prov: SUNNY TIWARI DO 03/26/18 Lactobacillus Acidophilus (Acidophilus) 1 Each Capsule 2 EACH PO QID, #80 CAP Prov: SUNNY TIWARI DO 03/26/18 SUNNY TIWARI DO Mar 26, 2018 17:32
[2018-03-26 18:08] VITALS: BP 123/62
== END 2018-03-26 18:08 | disposition home or self-care (01) ==
LOC: EDUNIT# 12:27 → ER 12:28
DX: R19.7 Diarrhea, unspecified (principal); E86.0 Dehydration; L05.01 Pilonidal cyst with abscess; E10.9 Type 1 diabetes mellitus without complications; G47.30 Sleep apnea, unspecified; F41.9 Anxiety disorder, unspecified; I50.9 Heart failure, unspecified; F32.9 Major depressive disorder, single episode, unspecified; I25.10 Atherosclerotic heart disease of native coronary artery without angina pectoris; Z79.4 Long term (current) use of insulin; Z95.810 Presence of automatic (implantable) cardiac defibrillator
CPT/HCPCS: 36415; 71045; 80053; 80306; 80320; 81000; 82150; 82962; 83605; 83690; 83735; 83880; 84443; 84484; 85007; 85027; 85610; 85730; 87045; 87046; 87324; 87449; 89055; 93005; 93041; 96360; 96361

== ENCOUNTER → 2018-03-29 | Outpatient (CLI) | payer BC, MEDICARE ==
[~2018-03-29] MED LIST changes: +LACT1CAP8 PO; +METR500T PO
== END ==
LOC: WOUNDCARE 09:31
PROVIDERS: ATTEND Nurse Practitioner
DX: E11.622 Type 2 diabetes mellitus with other skin ulcer (principal); L98.412 Non-pressure chronic ulcer of buttock with fat layer exposed
CPT/HCPCS: 99213

== ENCOUNTER → 2018-04-04 | Outpatient (CLI) | payer BC, MEDICARE | LOC: LAB 09:36 | PROVIDERS: ATTEND Surgery | DX: E11.622 Type 2 diabetes mellitus with other skin ulcer (principal); L98.412 Non-pressure chronic ulcer of buttock with fat layer exposed; L02.32 Furuncle of buttock | CPT/HCPCS: 36415; 83036 ==

== ENCOUNTER → 2018-04-04 | Outpatient (CLI) | payer BC, MEDICARE | LOC: WOUNDCARE 08:24 | PROVIDERS: ATTEND Surgery | DX: E11.622 Type 2 diabetes mellitus with other skin ulcer (principal); L98.412 Non-pressure chronic ulcer of buttock with fat layer exposed; L02.32 Furuncle of buttock | CPT/HCPCS: 10060; 87070; 87075; 87077; 87186; 87205 ==

== ENCOUNTER → 2018-04-13 | Outpatient (CLI) | payer BC, MEDICARE | LOC: WOUNDCARE 13:22 | PROVIDERS: ATTEND Surgery | DX: E11.622 Type 2 diabetes mellitus with other skin ulcer (principal); L98.412 Non-pressure chronic ulcer of buttock with fat layer exposed; L02.32 Furuncle of buttock | CPT/HCPCS: 11042 ==

== ENCOUNTER → 2018-04-22 | Outpatient (CLI) | payer BC, MEDICARE ==
[~2018-04-22] MED LIST changes: -SPIR25TA3 PO; +SPIR25TA5 PO
== END ==
LOC: WOUNDCARE 08:28
PROVIDERS: ATTEND Surgery
DX: E11.622 Type 2 diabetes mellitus with other skin ulcer (principal); L98.412 Non-pressure chronic ulcer of buttock with fat layer exposed; L02.32 Furuncle of buttock
CPT/HCPCS: 97605

== ENCOUNTER → 2018-04-25 | Outpatient (CLI) | payer BC, MEDICARE | LOC: WOUNDCARE 08:26 | PROVIDERS: ATTEND Surgery | DX: E11.622 Type 2 diabetes mellitus with other skin ulcer (principal); L02.32 Furuncle of buttock; L98.412 Non-pressure chronic ulcer of buttock with fat layer exposed | CPT/HCPCS: 11042; 97605 ==

== ENCOUNTER → 2018-04-29 | Outpatient (CLI) | payer BC, MEDICARE | LOC: WOUNDCARE 09:13 | PROVIDERS: ATTEND Surgery | DX: E10.622 Type 1 diabetes mellitus with other skin ulcer (principal); L98.412 Non-pressure chronic ulcer of buttock with fat layer exposed; L02.32 Furuncle of buttock | CPT/HCPCS: 97605 ==

== ENCOUNTER → 2018-05-02 | Outpatient (CLI) | payer BC, MEDICARE | LOC: WOUNDCARE 08:36 | PROVIDERS: ATTEND Surgery | DX: E10.622 Type 1 diabetes mellitus with other skin ulcer (principal); L98.412 Non-pressure chronic ulcer of buttock with fat layer exposed; L02.32 Furuncle of buttock | CPT/HCPCS: 11042; 87070; 87075; 87077; 87186; 87205; 97605 ==

== ENCOUNTER → 2018-05-04 | Outpatient (CLI) | payer BC, MEDICARE | LOC: WOUNDCARE 08:24 | PROVIDERS: ATTEND Surgery | DX: E10.622 Type 1 diabetes mellitus with other skin ulcer (principal); L98.412 Non-pressure chronic ulcer of buttock with fat layer exposed; L02.32 Furuncle of buttock | CPT/HCPCS: 97605 ==

== ENCOUNTER → 2018-05-06 | Outpatient (CLI) | payer BC, MEDICARE | LOC: WOUNDCARE 08:50 | PROVIDERS: ATTEND Surgery | DX: E10.622 Type 1 diabetes mellitus with other skin ulcer (principal); L98.412 Non-pressure chronic ulcer of buttock with fat layer exposed; L02.32 Furuncle of buttock; E10.42 Type 1 diabetes mellitus with diabetic polyneuropathy; G47.30 Sleep apnea, unspecified; I50.9 Heart failure, unspecified; I95.9 Hypotension, unspecified | CPT/HCPCS: 97605 ==

== ENCOUNTER → 2018-05-09 | Outpatient (CLI) | payer BC, MEDICARE | LOC: WOUNDCARE 08:25 | PROVIDERS: ATTEND Surgery | DX: E10.622 Type 1 diabetes mellitus with other skin ulcer (principal); L98.412 Non-pressure chronic ulcer of buttock with fat layer exposed; L02.32 Furuncle of buttock | CPT/HCPCS: 11042 ==

== ENCOUNTER → 2018-05-16 | Outpatient (CLI) | payer BC, MEDICARE | LOC: WOUNDCARE 08:33 | PROVIDERS: ATTEND Surgery | DX: E10.622 Type 1 diabetes mellitus with other skin ulcer (principal); L98.412 Non-pressure chronic ulcer of buttock with fat layer exposed; L02.32 Furuncle of buttock | CPT/HCPCS: 11042 ==

== ENCOUNTER → 2018-05-23 | Outpatient (CLI) | payer BC, MEDICARE | LOC: WOUNDCARE 08:18 | PROVIDERS: ATTEND Surgery | DX: E10.622 Type 1 diabetes mellitus with other skin ulcer (principal); L98.412 Non-pressure chronic ulcer of buttock with fat layer exposed; L02.32 Furuncle of buttock | CPT/HCPCS: 11042; 87070; 87075; 87205; 97605 ==

== ENCOUNTER → 2018-05-24 | Outpatient (CLI) | payer BC, MEDICARE | LOC: WOUNDCARE 10:03 | PROVIDERS: ATTEND Nurse Practitioner | DX: E10.622 Type 1 diabetes mellitus with other skin ulcer (principal); L98.412 Non-pressure chronic ulcer of buttock with fat layer exposed; G47.30 Sleep apnea, unspecified; I50.9 Heart failure, unspecified; I95.9 Hypotension, unspecified | CPT/HCPCS: 97605 ==

== ENCOUNTER → 2018-05-27 | Outpatient (CLI) | payer BC, MEDICARE | LOC: WOUNDCARE 07:57 | PROVIDERS: ATTEND Nurse Practitioner | DX: E10.622 Type 1 diabetes mellitus with other skin ulcer (principal); L98.412 Non-pressure chronic ulcer of buttock with fat layer exposed; L02.32 Furuncle of buttock | CPT/HCPCS: 97605 ==

== ENCOUNTER → 2018-05-30 | Outpatient (CLI) | payer BC, MEDICARE | LOC: WOUNDCARE 08:13 | PROVIDERS: ATTEND Surgery | DX: E10.622 Type 1 diabetes mellitus with other skin ulcer (principal); L98.412 Non-pressure chronic ulcer of buttock with fat layer exposed; L02.32 Furuncle of buttock | CPT/HCPCS: 11042 ==

== ENCOUNTER → 2018-05-31 | Outpatient (CLI) | payer BC, MEDICARE | LOC: WOUNDCARE 08:08 | PROVIDERS: ATTEND Nurse Practitioner | DX: E10.622 Type 1 diabetes mellitus with other skin ulcer (principal); L98.412 Non-pressure chronic ulcer of buttock with fat layer exposed; L02.32 Furuncle of buttock | CPT/HCPCS: 97605 ==

== ENCOUNTER → 2018-06-03 | Outpatient (CLI) | payer BC, MEDICARE | LOC: WOUNDCARE 08:07 | PROVIDERS: ATTEND Surgery | DX: E10.622 Type 1 diabetes mellitus with other skin ulcer (principal); L98.412 Non-pressure chronic ulcer of buttock with fat layer exposed; G47.30 Sleep apnea, unspecified; I50.9 Heart failure, unspecified; I95.9 Hypotension, unspecified; E10.42 Type 1 diabetes mellitus with diabetic polyneuropathy | CPT/HCPCS: 97605 ==

== ENCOUNTER → 2018-06-06 | Outpatient (CLI) | payer BC, MEDICARE | LOC: WOUNDCARE 08:13 | PROVIDERS: ATTEND Surgery | DX: E10.622 Type 1 diabetes mellitus with other skin ulcer (principal); L98.412 Non-pressure chronic ulcer of buttock with fat layer exposed; L02.32 Furuncle of buttock | CPT/HCPCS: 11042 ==

== ENCOUNTER → 2018-06-28 | Outpatient (CLI) | payer BC, MEDICARE ==
[~2018-06-28] MED LIST changes: -LOSA100T28 PO; +LOSA100T8 PO; -LOSA50TA36 PO; +LOSA50TA7 PO
== END ==
LOC: WOUNDCARE 13:48
PROVIDERS: ATTEND Surgery
DX: E10.622 Type 1 diabetes mellitus with other skin ulcer (principal); L98.412 Non-pressure chronic ulcer of buttock with fat layer exposed; L02.32 Furuncle of buttock
CPT/HCPCS: 99212